=== PATIENT | female | born 1955 | race Caucasian/White ===

== ENCOUNTER 2017-05-05 06:33 | Inpatient (IN) | payer OTHER, MEDICAID, MEDICARE ==
[2017-05-05] VITALS (47 sets, daily range): BP systolic 117–145; BP diastolic 66–98; PULSE 75–130; RESP 18–35; TEMP 91.1–98.4; O2SAT 93–100
[~2017-05-05 06:33] MED LIST: ASPI325T PO; CARV3.12 PO; DEPA250T2 PO; FURO1TAB93 PO; GABA300C3 PO; LAMO25TA PO; LANTUS2P SC; LORA1TAB PO; SERT-129 PO; SIMV40TA PO; SPIR25TA PO; SPIRCAP INH; TEMA15CA PO; TIZA4 PO
[2017-05-05] MEDS ORDERED: LORazepam 2 MG/ML VIAL ONE (06:40)
[2017-05-05] MEDS ORDERED: PROPOFOL 1000 MG/100 ML INJ 100 ML ONE (06:41)
[2017-05-05] MEDS ORDERED: SODIUM CHLOR 0.9% 1000 ML INJ 1,000 ML IV ONE (07:00)
[2017-05-05] MEDS ORDERED: LORazepam 2 MG/ML VIAL IV PUSH ONE ×2 (07:00)
--- NOTE | 2017-05-05 07:11 | PD ---
Physical Exam Date Seen by Provider: May 05, 2017 Time Seen by Provider: 07:07 Narrative The patient is a 77-year-old female who presents to the emergency department as a code. The patient was initially loaded with previous physician , Dr. Monteiro. The patient apparently woke up short of breath, then collapsed on the bed, when EMS arrived the patient was in pulseless electrical activity. The patient had CPR performed and was administered 2 rounds of epinephrine and one round of bicarbonate, spontaneous return of circulation was obtained upon arrival. The patient was intubated in the field. The patient was signed out at 7 AM with chest x-ray, CT, and laboratory evaluation pending. Data Data Last Documented VS Vital Signs Date Time Temp Pulse Resp B/P (MAP) Pulse Ox O2 Delivery O2 Flow Rate FiO2 05/05/17 08:24 97.3 88 32 135/66 (89) 99 Ventilator 100 Orders Orders Lorazepam Inj (Ativan Inj) (05/05/17 06:40) Propofol 1000 Mg/100 Ml Inj (Diprivan 10 (05/05/17 06:41) Electrocardiogram (05/05/17 06:48) Complete Blood Count With Diff (05/05/17 06:48) Comprehensive Metabolic Panel (05/05/17 06:48) Creatine Kinase (Cpk) (05/05/17 06:48) Ckmb (Isoenzyme) Profile (05/05/17 06:48) Troponin I (05/05/17 06:48) B-Type Natriuretic Peptide (05/05/17 06:48) Prothrombin Time / Inr (Pt) (05/05/17 06:48) Act Partial Throm Time (Ptt) (05/05/17 06:48) Blood Culture (05/05/17 06:48) Lipase (05/05/17 06:48) Urinalysis - C+S If Indicated (05/05/17 06:48) Magnesium (Mg) (05/05/17 06:48) Valproic Acid (Depakene) (05/05/17 06:48) Thyroid Stimulating Hormone (05/05/17 06:48) Chest, Single Ap (05/05/17 06:48) Iv Access Insert/Monitor (05/05/17 06:48) Ecg Monitoring (05/05/17 06:48) Oximetry (05/05/17 06:48) Urinary Catheter Insert/Apply (05/05/17 06:48) Nilda-Gastric Tube Insert/Mon (05/05/17 06:48) Drug Screen, Random Urine (05/05/17 06:48) Alcohol (Ethanol) (05/05/17 06:48) Arterial Blood Gas (Abg) (05/05/17 ) Sodium Chlor 0.9% 1000 Ml Inj (Ns 1000 M (05/05/17 07:00) Lactic Acid Sepsis Protocol (05/05/17 06:48) Lorazepam Inj (Ativan Inj) (05/05/17 07:00) Lorazepam Inj (Ativan Inj) (05/05/17 07:00) Ct Brain W/O Iv Contrast(Rout) (05/05/17 ) Propofol 1000 Mg/100 Ml Inj (Diprivan 10 (05/05/17 07:15) ^ Infusion (05/05/17 07:03) RASS (05/05/17 07:03) Neurological Rass Scale YOANA.Q2H (05/05/17 07:03) Ct Pulmonary Angiogram (05/05/17 ) Admit To Inpatient (05/05/17 ) Code Status (05/05/17 07:34) Vital Signs (Adult) YOANA.Q1H (05/05/17 07:34) Activity Bed Rest (05/05/17 07:34) Elevate Head Of Bed (05/05/17 07:34) Neuro Checks . ORDERED (05/05/17 07:34) Intake + Output Q1H (05/05/17 07:34) ^ Orogastric Tube (05/05/17 07:34) Urinary Catheter Management YOANA.Q8H (05/05/17 07:34) Diet Npo (05/05/17 Breakfast) Sodium Chloride 0.9% Flush (Ns Flush) (05/05/17 07:45) Sodium Chloride 0.9% Flush (Ns Flush) (05/05/17 09:00) Famotidine Inj (Pepcid Inj) (05/05/17 09:00) Lorazepam Inj (Ativan Inj) (05/05/17 07:45) Ondansetron Inj (Zofran Inj) (05/05/17 07:45) Albuterol-Ipratropium Neb (Duoneb Neb) (05/05/17 10:00) Albuterol Neb (Albuterol Neb) (05/05/17 07:45) Complete Blood Count With Diff (05/06/17 04:00) Comprehensive Metabolic Panel (05/06/17 04:00) Troponin I (05/05/17 13:00) Troponin I (05/05/17 19:00) Magnesium (Mg) (05/06/17 04:00) Phosphorus (Po4) (05/06/17 04:00) Ammonia (05/05/17 07:34) Electrocardiogram (05/05/17 07:34) Electrocardiogram (05/05/17 13:34) Echo 2d Comp With Doppler (05/05/17 07:34) Portable Eeg (05/05/17 ) Supervisor Audit Clerks / Telemetry YOANA.Q8H (05/05/17 07:34) Scd Bilateral/Knee High YOANA.BID (05/05/17 07:34) ^ Initiate Protocol (05/05/17 07:34) Instruction (05/05/17 07:34) [facility] Information (05/05/17 07:45) Chlorhexidine 2% Cloth (Chlorhexidine 2% (05/06/17 04:00) Chlorhexidine 2% Cloth (Chlorhexidine 2% (05/05/17 07:45) Mrsa Pcr Surveillance (05/05/17 07:34) Docusate Sodium-Senna (Lucrecia-Colace) (05/05/17 09:00) Magnesium Hydroxide Liq (Milk Of Magnesi (05/05/17 07:45) Sennosides (Senokot) (05/05/17 07:45) Bisacodyl Supp (Dulcolax Supp) (05/05/17 07:45) Lactulose Liq (Lactulose Liq) (05/05/17 07:45) Inpatient Certification (05/05/17 ) Tylenol (Acetaminophen) (05/05/17 07:44) Salicylates (Aspirin) (05/05/17 07:44) CKMB (05/05/17 07:00) CKMB% (05/05/17 07:00) Sputum Culture And Gram Stain (05/05/17 07:55) Midazolam Inj (Versed Inj) (05/05/17 08:00) Propofol 1000 Mg/100 Ml Inj (Diprivan 10 (05/05/17 08:00) Neurological Rass Scale Q30MX2,Q2HX4,Q4H (05/05/17 07:56) Albuterol-Ipratropium Neb (Duoneb Neb) (05/05/17 08:00) ^ Orogastric Tube (05/05/17 08:08) Free T3 (05/05/17 08:09) Free Thyroxine (T4) (05/05/17 08:09) Neurological Rass Scale Q30MX2,Q2HX4,Q4H (05/05/17 08:10) Fentanyl Drip (Fentanyl Drip) (05/05/17 08:15) Fentanyl Inj (Fentanyl Inj) (05/05/17 08:15) Us Abdomen Liver (05/05/17 ) Hepatitis Profile (05/05/17 08:12) Iohexol 350 Inj (Omnipaque 350 Inj) (05/05/17 08:17) Influenzae A/B Antigen (05/05/17 08:13) Bedside Glucose . DIRECTED (05/05/17 08:39) Blood Glucose Goal (Criteria) (05/05/17 08:39) Hypoglycemia 70 Mg/Dl Or < (05/05/17 08:39) Notify Dr: Other (05/05/17 08:39) Dextrose 50% In [place] (Vial) Inj (D50w (Vi (05/05/17 08:45) Glucagon Inj (Glucagon Inj) (05/05/17 08:45) Insulin Aspart Supplemtl Scale (Novolog (05/05/17 08:45) Aspirin Chew (Aspirin Chew) (05/05/17 08:45) Aspirin Chew (Aspirin Chew) (05/05/17 09:00) Cefepime Inj (Maxipime Inj) (05/05/17 08:45) Azithromycin Inj (Zithromax Inj) (05/05/17 08:45) Labs Laboratory Tests Test 05/05/17 07:00 05/05/17 07:15 White Blood Count 14.4 TH/MM3 Red Blood Count 4.86 MIL/MM3 Hemoglobin 15.8 GM/DL Hematocrit 48.3 % Mean Corpuscular Volume 99.5 FL Mean Corpuscular Hemoglobin 32.5 PG Mean Corpuscular Hemoglobin Concent 32.6 % Red Cell Distribution Width 14.6 % Platelet Count 183 TH/MM3 Mean Platelet Volume 10.2 FL Neutrophils (%) (Auto) 41.9 % Lymphocytes (%) (Auto) 52.3 % Monocytes (%) (Auto) 4.5 % Eosinophils (%) (Auto) 0.7 % Basophils (%) (Auto) 0.6 % Neutrophils # (Auto) 6.0 TH/MM3 Lymphocytes # (Auto) 7.5 TH/MM3 Monocytes # (Auto) 0.7 TH/MM3 Eosinophils # (Auto) 0.1 TH/MM3 Basophils # (Auto) 0.1 TH/MM3 CBC Comment AUTO DIFF Differential Total Cells Counted 100 Neutrophils % (Manual) 34 % Band Neutrophils % 3 % Lymphocytes % 49 % Monocytes % 11 % Eosinophils % 1 % Neutrophils # (Manual) 5.6 TH/MM3 Metamyelocytes 1 % Myelocytes 1 % Differential Comment FINAL DIFF MANUAL Red Cell Morphology Comment NORMAL Prothrombin Time 10.8 SEC Prothromb Time International Ratio 1.0 RATIO Activated Partial Thromboplast Time 27.3 SEC Urine Color LIGHT-YELLOW Urine Turbidity CLEAR Urine pH 6.5 Urine Specific [place] 1.007 Urine Protein TRACE mg/dL Urine Glucose (UA) NEG mg/dL Urine Ketones NEG mg/dL Urine Occult Blood SMALL Urine Nitrite NEG Urine Bilirubin NEG Urine Urobilinogen LESS THAN 2.0 MG/DL Urine Leukocyte Esterase NEG Urine RBC 4 /hpf Urine WBC 1 /hpf Microscopic Urinalysis Comment CULT NOT INDICATED Blood Urea Nitrogen 21 MG/DL Creatinine 1.21 MG/DL Random Glucose 194 MG/DL Total Protein 7.3 GM/DL Albumin 3.4 GM/DL Calcium Level 8.6 MG/DL Magnesium Level 2.7 MG/DL Alkaline Phosphatase 151 U/L Aspartate Amino Transf (AST/SGOT) 245 U/L Alanine Aminotransferase (ALT/SGPT) 177 U/L Total Bilirubin 0.3 MG/DL Sodium Level 143 MEQ/L Potassium Level 4.1 MEQ/L Chloride Level 104 MEQ/L Carbon Dioxide Level 22.2 MEQ/L Anion Gap 17 MEQ/L Estimat Glomerular Filtration Rate 45 ML/MIN Lactic Acid Level 11.4 mmol/L Total Creatine Kinase 138 U/L Creatine Kinase MB 1.6 NG/ML Troponin I 0.03 NG/ML B-Type Natriuretic Peptide 342 PG/ML Lipase 168 U/L Thyroid Stimulating Hormone 3rd Gen 4.890 uIU/ML Urine Opiates Screen NEG Urine Barbiturates Screen NEG Valproic Acid (Depakene) Level LESS THAN 3 MCG/ML Urine Amphetamines Screen NEG Urine Benzodiazepines Screen NEG Urine Cocaine Screen NEG Urine Cannabinoids Screen POS Ethyl Alcohol Level LESS THAN 3 MG/DL Blood Gas Puncture Site RT RADIAL Blood Gas Patient Temperature 98.6 Blood Gas HCO3 21 mmol/L Blood Gas Base Excess -6.8 mmol/L Blood Gas Oxygen Saturation 91 % Arterial Blood pH 7.14 Arterial Blood Partial Pressure CO2 64 mmHg Arterial Blood Partial Pressure O2 103 mmHg Arterial Blood Oxygen Content 19.7 Vol % Arterial Blood Carboxyhemoglobin 4.5 % Arterial Blood Methemoglobin 0.7 % Blood Gas Hemoglobin 15.4 G/DL Oxygen Delivery Device VENTILATOR Blood Gas Ventilator Setting Blood Gas Inspired Oxygen 100 % [facility] Medical Record Reviewed: Yes Supervised Visit with GARRET: No Interpretation(s) EKG reveals sinus tachycardia with a heart rate of 134. Left bundle branch block. Wavy baseline noted. Laboratory Tests Test 05/05/17 07:00 05/05/17 07:15 White Blood Count 14.4 TH/MM3 Red Blood Count 4.86 MIL/MM3 Hemoglobin 15.8 GM/DL Hematocrit 48.3 % Mean Corpuscular Volume 99.5 FL Mean Corpuscular Hemoglobin 32.5 PG Mean Corpuscular Hemoglobin Concent 32.6 % Red Cell Distribution Width 14.6 % Platelet Count 183 TH/MM3 Mean Platelet Volume 10.2 FL Neutrophils (%) (Auto) 41.9 % Lymphocytes (%) (Auto) 52.3 % Monocytes (%) (Auto) 4.5 % Eosinophils (%) (Auto) 0.7 % Basophils (%) (Auto) 0.6 % Neutrophils # (Auto) 6.0 TH/MM3 Lymphocytes # (Auto) 7.5 TH/MM3 Monocytes # (Auto) 0.7 TH/MM3 Eosinophils # (Auto) 0.1 TH/MM3 Basophils # (Auto) 0.1 TH/MM3 CBC Comment AUTO DIFF Prothrombin Time 10.8 SEC Prothromb Time International Ratio 1.0 RATIO Activated Partial Thromboplast Time 27.3 SEC Urine Color LIGHT-YELLOW Urine Turbidity CLEAR Urine pH 6.5 Urine Specific [place] 1.007 Urine Protein TRACE mg/dL Urine Glucose (UA) NEG mg/dL Urine Ketones NEG mg/dL Urine Occult Blood SMALL Urine Nitrite NEG Urine Bilirubin NEG Urine Urobilinogen LESS THAN 2.0 MG/DL Urine Leukocyte Esterase NEG Urine RBC 4 /hpf Urine WBC 1 /hpf Microscopic Urinalysis Comment CULT NOT INDICATED Blood Urea Nitrogen 21 MG/DL Creatinine 1.21 MG/DL Random Glucose 194 MG/DL Total Protein 7.3 GM/DL Albumin 3.4 GM/DL Calcium Level 8.6 MG/DL Magnesium Level 2.7 MG/DL Alkaline Phosphatase 151 U/L Aspartate Amino Transf (AST/SGOT) 245 U/L Alanine Aminotransferase (ALT/SGPT) 177 U/L Total Bilirubin 0.3 MG/DL Sodium Level 143 MEQ/L Potassium Level 4.1 MEQ/L Chloride Level 104 MEQ/L Carbon Dioxide Level 22.2 MEQ/L Anion Gap 17 MEQ/L Estimat Glomerular Filtration Rate 45 ML/MIN Lactic Acid Level 11.4 mmol/L Total Creatine Kinase 138 U/L Creatine Kinase MB 1.6 NG/ML Troponin I 0.03 NG/ML Lipase 168 U/L Thyroid Stimulating Hormone 3rd Gen 4.890 uIU/ML Urine Opiates Screen NEG Urine Barbiturates Screen NEG Valproic Acid (Depakene) Level LESS THAN 3 MCG/ML Urine Amphetamines Screen NEG Urine Benzodiazepines Screen NEG Urine Cocaine Screen NEG Urine Cannabinoids Screen POS Ethyl Alcohol Level LESS THAN 3 MG/DL Blood Gas Puncture Site RT RADIAL Blood Gas Patient Temperature 98.6 Blood Gas HCO3 21 mmol/L Blood Gas Base Excess -6.8 mmol/L Blood Gas Oxygen Saturation 91 % Arterial Blood pH 7.14 Arterial Blood Partial Pressure CO2 64 mmHg Arterial Blood Partial Pressure O2 103 mmHg Arterial Blood Oxygen Content 19.7 Vol % Arterial Blood Carboxyhemoglobin 4.5 % Arterial Blood Methemoglobin 0.7 % Blood Gas Hemoglobin 15.4 G/DL Oxygen Delivery Device VENTILATOR Blood Gas Ventilator Setting Blood Gas Inspired Oxygen 100 % Last Impressions Chest X-Ray 05/05/17 0648 Signed Impressions: Service Date/Time: Friday, May 05, 2017 07:12 - CONCLUSION: 1. Endotracheal and nasogastric tubes are in good position. 2. Cardiomegaly with vascular congestion but no evidence of pulmonary edema consolidating airspace disease. 3. AICD. Mikael Hinton MD Head CT 05/05/17 0000 Signed Impressions: Service Date/Time: Friday, May 05, 2017 07:54 - CONCLUSION: No acute disease. Study is motion degraded. Yony Ahmadi Jr., MD CT Angiography 05/05/17 0000 Signed Impressions: Service Date/Time: Friday, May 05, 2017 07:58 - CONCLUSION: 1. Patchy airspace disease predominantly in the right upper lobe posteriorly and the left base. Findings could represent pneumonic infiltrates. 2. There is also dependent atelectatic changes in both hemithoraces, slightly more prominent on the right. 3. No pulmonary embolus or effusion. Saran Perdomo MD Differential Diagnosis Differential diagnosis includes arrhythmia, pulseless electrical activity, acute coronary syndrome, pulmonary embolism, seizure, medication side effect, cardiopulmonary arrest. Narrative Course The patient was initially evaluated by the previous physician, Dr. Monteiro. Please refer to the initial history, physical, diagnostic evaluation, and treatment modality plan. The patient was signed out at [address] of the brain pending, x-ray pending, laboratory evaluation pending. The patient apparently woke up short of breath, then collapsed on the bed, was found to be in pulseless electrical activity. The patient had CPR initiated, an IO was placed in right lower extremity, the patient received 2 rounds of epinephrine and 1 amp of bicarbonate. EMS was able to gain spontaneous return of circulation, the patient was intubated in the field. The patient does have an AICD in place in left upper chest wall. She appeared to have seizure-like activity in the emergency department, unsure if this was related to seizure or hypoxic event. The patient may be a candidate for code cool, therefore, the on- call internet marketing intern for [employer] was paged. The patient did have 3 peripheral lines placed by nursing, 2 in the antecubital fossa, one in the left hand. The patient was on a propofol drip when she was signed out at 7 AM. I discussed the patient with the on-call internet marketing intern, Dr. Landin, 7:30 AM. As the patient did initially have pulseless electrical activity, we will need to rule out other causes of PEA including hypokalemia, hyperkalemia, and pulmonary embolism, prior to instituting a code cool. I will call back with results once they're obtained. Patient's troponin is unremarkable. Lactic acid was elevated, unsure if this is related to hypoxia versus underlying seizure. CT the brain is negative except for motion artifact. CT pulmonary angiogram reveals pneumonic infiltrates in the right upper lobe and a left lower lobe, may be aspiration related. The patient was administered cefepime, her allergy to amoxicillin as nausea, and Zithromax as she will be going to the intensive care unit. Physician Communication Physician Communication The on-call internet marketing intern for the intensive surgical care unit was paged at 7 AM for admission. Diagnosis Primary Impression: Cardiopulmonary arrest Additional Impression: Acute respiratory failure with hypoxia and hypercapnia Admitting Information Admitting Physician Requests: Admit Condition: Critical Johnathan Ly MD May 05, 2017 07:11
[2017-05-05] MEDS ORDERED: FURO40TA PO (07:12)
[2017-05-05] MEDS ORDERED: TIZA4CAP3 PO (07:12)
[2017-05-05] MEDS ORDERED: GABA100C4 PO (07:12)
[2017-05-05] MEDS ORDERED: SPIR25TA PO (07:12)
[2017-05-05] MEDS ORDERED: ATOR20TA15 PO (07:12)
[2017-05-05] MEDS ORDERED: FURO20TA PO (07:12)
[2017-05-05] MEDS ORDERED: CARV25TA PO (07:12)
[2017-05-05] MEDS ORDERED: SERT-132 PO (07:12)
[2017-05-05] MEDS ORDERED: TEMA15CA PO (07:12)
[2017-05-05] MEDS ORDERED: RIZA10TA4 SL (07:12)
[2017-05-05] MEDS ORDERED: PROPOFOL 1000 MG/100 ML INJ 100 ML IV PRN (07:15)
[2017-05-05 07:17] LABS: BASOPHIL # 0.1 TH/MM3 (0-0.2); BASOPHIL % 0.6 % (0.0-2.0); EOSINOPHIL # 0.1 TH/MM3 (0-0.4); EOSINOPHIL % 0.7 % (0.0-4.0); HEMATOCRIT 48.3 % (35.0-46.0); LYMPH % 52.3 % (9.0-44.0); LYMPHOCYTE # 7.5 TH/MM3 (1.0-4.8); MEAN CELL VOLUME 99.5 FL (80.0-100.0); MEAN CORPUSCULAR HEMOGLOBIN 32.5 PG (27.0-34.0); MEAN CORPUSCULAR HGB CONC 32.6 % (32.0-36.0); MONO % 4.5 % (0.0-8.0); NEUT % 41.9 % (16.0-70.0); PLATELET COUNT 183 TH/MM3 (150-450); RED BLOOD COUNT 4.86 MIL/MM3 (4.00-5.30); RED CELL DISTRIBUTION WIDTH 14.6 % (11.6-17.2); WHITE BLOOD COUNT 14.4 TH/MM3 (4.0-11.0)
[2017-05-05 07:18] LABS: BLOOD, URINE SMALL (NEG); COMMENT (UR) CULT NOT INDICATED; CULTURE IF INDICATED CULT NOT INDICATED; GLUCOSE,URINE NEG (NEG); KETONE, URINE NEG (NEG); NITRITE,URINE NEG (NEG); PH, URINE 6.5 (5.0-8.5); URINE COLOR LIGHT-YELLOW (YELLW/STRAW)
[2017-05-05 07:24] LABS: APTT (PATIENT) 27.3 SEC (24.3-30.1); HEMO FLAGS AUTO DIFF; PROTHROMBIN TIME - PATIENT 10.8 SEC (9.8-11.6)
[2017-05-05 07:30] LABS: ALT (GPT) 177 U/L (10-53); ANION GAP 17 MEQ/L (5-15); AST (GOT) 245 U/L (15-37); BICARBONATE 22.2 MEQ/L (21.0-32.0); BLOOD UREA NITROGEN 21 MG/DL (7-18); CHLORIDE 104 MEQ/L (98-107); GLOMERULAR FILTRATION RATE 45 ML/MIN (>89); MAGNESIUM 2.7 MG/DL (1.5-2.5); POTASSIUM 4.1 MEQ/L (3.5-5.1); SODIUM (NA) 143 MEQ/L (136-145)
[2017-05-05 07:31] LABS: BLOOD GAS BASE EXCESS -6.8 mmol/L (-2-2); BLOOD GAS CARBOXYHEMOGLOBIN 4.5 % (0-4); BLOOD GAS HCO3 21 mmol/L (22-26); BLOOD GAS METHEMOGLOBIN 0.7 % (0-2); BLOOD GAS O2 HGB SATURATION 91 % (90-100); BLOOD GAS OXYGEN CONTENT 19.7 Vol % (12.0-20.0); BLOOD GAS PCO2 64 mmHg (38-42); BLOOD GAS PO2 103 mmHg (61-120); BLOOD GAS TOTAL HGB 15.4 G/DL (12.0-16.0); TEMP CORR TO 98.6
[2017-05-05 07:32] LABS: CRITICAL VALUE YES; OXYGEN DEVICE VENTILATOR
[2017-05-05 07:33] LABS: DRAW SITE RT RADIAL; FIO2 100 %; NUMBER OF ARTERIAL PUNCTURES 1; STAT YES; ULNAR PULSE PRESENT
--- NOTE | 2017-05-05 07:33 | RADRPT ---
EXAM DATE/TIME: 05/05/2017 07:12 [place] COMPARISON: CT PULMONARY ANGIOGRAM, February 08, 2015, 15:22. INDICATIONS : Post Intubation MEDICAL HISTORY : Unobtainable SURGICAL HISTORY : Unobtainable ENCOUNTER: Initial ACUITY: 1 day PAIN SCORE: Non-responsive. LOCATION: Bilateral chest FINDINGS: Endotracheal and nasogastric tubes have been inserted and are in good position. Tip of the endotrache al tube is approximately 2 cm above the nick. The heart is moderately enlarged. Diffuse vascular fullness is noted throughout both lungs. There is no evidence of significant pulmona ry edema or consolidating airspace disease. CONCLUSION: 1. Endotracheal and nasogastric tubes are in good position. 2. Cardiomegaly with vascular congestion but no evidence of pulmonary edema consolidating airspace di sease. 3. AICD. Mikael Hinton MD on May 05, 2017 at 7:29 Board Certified Radiologist. This report was verified electronically.
[2017-05-05 07:39] LABS: ALKALINE PHOSPHATASE 151 U/L (45-117); CREATINE KINASE 138 U/L (26-192); TOTAL BILIRUBIN ADULT 0.3 MG/DL (0.2-1.0)
--- NOTE | 2017-05-05 07:43 | PD ---
HPI Chief Complaint: Cardiac Complaint Time Seen by Provider: 06:47 Travel History International Travel<30 days: No Contact w/Intl Traveler<30days: No Traveled to known affect area: No History of Present Illness HPI The patient is a 62 year old female who presents to the [facility] emergency department with a history of having a witnessed collapse prior to arrival. According to ambulance services the patient's family had placed a call regarding her shortness of breath. The patient was in bed and then suddenly collapsed. Ambulance services and fire rescue arrived and the patient was noted to be in PEA. The patient was intubated with a 7-1/2 endotracheal tube. The patient had intraosseous access placed in the right blackburn prior to arrival. The patient's blood sugar was noted to be 141. The patient had ACLS protocol followed and was given 2 doses of epinephrine and 1 amp of bicarbonate. After the amp of bicarbonate the patient had a return of spontaneous circulation. The patient was then noted to be in a sinus tach in the 120s to 130s with hypertension. The patient on arrival to this facility is noted to have twitching of her extremities with intermittent rapid eye blinking suspicious for seizure activity. The patient's history is limited on initial arrival. The patient was last seen at this facility in 2014. According to the record the patient was previously on Depakote. It is unclear whether the patient has a prior history of seizure disorder. From reviewing the electronic medical record, the patient is noted to have a nonischemic cardiomyopathy with a history of AICD and pacemaker placement. No other history or review of systems is able to be obtained from the patient and she arrives intubated. [facility] Past Medical History Narrative Medical the patient's past medical history according to the electronic medical record consists of a nonischemic cardiomyopathy, history of colon cancer, history of congestive heart failure, history of hyperlipidemia, COPD, diabetes mellitus, hypertension, history of headaches Medical History: Unable to Obtain Hx Anticoagulant Therapy: Yes Arthritis: Yes Asthma: Yes Autoimmune Disease: No Blood Disorders: No Anxiety: Yes Depression: Yes Heart Rhythm Problems: Yes Cancer: Yes Cardiac Catheterization: Yes (2007) Cardiomyopathy: Yes ("NON-ISCHEMIC" CARDIOMYOPATHY) Cardiovascular Problems: Yes High Cholesterol: Yes Chemotherapy: No Chest Pain: No Congestive Heart Failure: Yes COPD: Yes Cerebrovascular Accident: No Coronary Artery Disease: Yes Diabetes: Yes Patient Takes Glucophage: No (UTO) Diminished Hearing: No Endocrine: Yes (DIABETIC FOR 10 YEARS) Gastrointestinal Disorders: Yes GERD: No Glaucoma: No Genitourinary: Yes (HEMORRHOIDS) Headaches: Yes Hepatitis: No Hiatal Hernia: No Hypertension: Yes Immune Disorder: No Kidney Stones: Yes Musculoskeletal: Yes Neurologic: Yes Psychiatric: Yes Reproductive: No Respiratory: Yes (COPD) Immunizations Current: No Migraines: No Myocardial Infarction: No Radiation Therapy: No Renal Failure: Yes Seizures: No Sickle Cell Disease: No Sleep Apnea: No Thyroid Disease: No Ulcer: No Tetanus Vaccination: Unknown PNEUMOCCOCAL Vaccine (Year): 1 Menopausal: Yes Ovarian Cysts: Yes ("L.OVARY REMOVED APPOX 1982") Past Surgical History Narrative Surgical The patient's past surgical history is significant for an AICD and pacemaker placement, history of partial colon resection, history of hysterectomy, hernia repair, tonsillectomy. Surgical History: Unable to Obtain Abdominal Surgery: Yes (1996--COLON RESECTION,9 1/2 INCHES REMOVED) AICD: Yes (2004--INTRINSIC DEFIBRILLATOR MODEL # 7288 SERIAL#[id number]) Appendectomy: No Arteriovenous Shunt: No Body Medical Devices: MEDTRONIC DEFIBRILLATOR Cardiac Surgery: Yes Cholecystectomy: No Ear Surgery: No Endocrine Surgery: No Eye Surgery: No Genitourinary Surgery: No Gynecologic Surgery: No Hysterectomy: Yes (2000) Joint Replacement: No Neurologic Surgery: No Oral Surgery: No Pacemaker: Yes (PACEMAKER/DEFIBRILLATOR) Thoracic Surgery: No Tonsillectomy: Yes ("MID 60'S") Other Surgery: Yes (HERNIA REPAIR- 1997) Social History Alcohol Use: Yes (YEARLY, 1 LIQUOR DRINK) Tobacco Use: Yes (2 PPD) Substance Use: Yes (MARIJUANA) Allergies-Medications (Allergen,Severity, Reaction): Coded Allergies: amoxicillin (Unverified Allergy, Severe, NAUSEA, 05/05/17) clavulanic acid (Unverified Allergy, Severe, NAUSEA, 05/05/17) codeine (Unverified Allergy, Severe, headache, 05/05/17) metformin (Unverified Allergy, Severe, NAUSEA, 05/05/17) morphine (Unverified Allergy, Severe, ITCHING, 05/05/17) Reported Meds & Prescriptions Reported Meds & Active Scripts Active Reported Atorvastatin (Atorvastatin Calcium) 20 Mg Tab 20 Mg PO DAILY Gabapentin 100 Mg Cap 100 Mg PO BID Sertraline (Sertraline HCl) 50 Mg Tab 150 Mg PO DAILY Carvedilol 25 Mg Tab 25 Mg PO BID Furosemide 20 Mg Tab 20 Mg PO DAILY Spironolactone 25 Mg Tab 25 Mg PO DAILY Temazepam 15 Mg Cap 15 Mg PO HS PRN Tizanidine (Tizanidine HCl) 4 Mg Cap 4 Mg PO TID Furosemide 40 Mg Tab 40 Mg PO DAILY Rizatriptan Odt (Rizatriptan Benzoate) 10 Mg Tab SL Review of Systems ROS Limitations: Intubated Eyes: No: Visual changes Cardiovascular: No: Dyspnea on exertion Respiratory: Positive: Shortness of Breath Physical Exam Narrative General: The patient is a well-developed well-nourished female, intubated on arrival, they did twitching intermittently with rapid eye blinking. Head and Neck exam: Head is normocephalic atraumatic. Eyes: Extraocular motion testing is unable to be accomplished in this patient who arrives unresponsive. Pupils are 4 mm, reactive to light. The patient has exophthalmos noted bilaterally. Nose: Midline septum with pink mucous membranes Mouth: Dentition unremarkable. Moist mucus membranes. Posterior oropharynx is not erythematous. No tonsillar hypertrophy. Uvula midline. Airway patent. Neck: No palpable lymphadenopathy. No nuchal rigidity. No thyromegaly. Cardiovascular: Sinus tachycardia with a rate in the 120s to 130s without murmurs, gallops, or rubs. No pulse deficit to the extremities on simultaneous auscultation and palpation of the radial artery. Lungs: Tachypneic on arrival with O2 saturations of 99% while being bagged. The patient was placed on a ventilator and continued to saturate 99%, decreased breath sounds in bilateral bases. Abdomen: Soft, without tenderness to palpation in all 4 quadrants of the abdomen. No guarding, rebound, or rigidity. Normal bowel sounds are audible. Extremities: No clubbing, cyanosis, or edema. 2+ pulses in all 4 extremities. Intraosseous access is noted to be placed in the right tibia. Neurologic Exam: The patient had no purposeful motor activity noted. Intermittent twitching of her extremities and rapid eye blinking suspicious for seizure activity versus hypoxic brain injury. GCS is 4 on arrival. Skin Exam: No rash noted. Intact skin that is warm and diaphoretic. Data Data Last Documented VS Vital Signs Date Time Temp Pulse Resp B/P (MAP) Pulse Ox O2 Delivery O2 Flow Rate FiO2 05/05/17 07:14 98.4 110 35 139/98 (112) 98 Ventilator 100 Orders Orders Lorazepam Inj (Ativan Inj) (05/05/17 06:40) Propofol 1000 Mg/100 Ml Inj (Diprivan 10 (05/05/17 06:41) Electrocardiogram (05/05/17 06:48) Complete Blood Count With Diff (05/05/17 06:48) Comprehensive Metabolic Panel (05/05/17 06:48) Creatine Kinase (Cpk) (05/05/17 06:48) Ckmb (Isoenzyme) Profile (05/05/17 06:48) Troponin I (05/05/17 06:48) B-Type Natriuretic Peptide (05/05/17 06:48) Prothrombin Time / Inr (Pt) (05/05/17 06:48) Act Partial Throm Time (Ptt) (05/05/17 06:48) Blood Culture (05/05/17 06:48) Lipase (05/05/17 06:48) Urinalysis - C+S If Indicated (05/05/17 06:48) Magnesium (Mg) (05/05/17 06:48) Valproic Acid (Depakene) (05/05/17 06:48) Thyroid Stimulating Hormone (05/05/17 06:48) Chest, Single Ap (05/05/17 06:48) Iv Access Insert/Monitor (05/05/17 06:48) Ecg Monitoring (05/05/17 06:48) Oximetry (05/05/17 06:48) Urinary Catheter Insert/Apply (05/05/17 06:48) Nilda-Gastric Tube Insert/Mon (05/05/17 06:48) Drug Screen, Random Urine (05/05/17 06:48) Alcohol (Ethanol) (05/05/17 06:48) Arterial Blood Gas (Abg) (05/05/17 ) Sodium Chlor 0.9% 1000 Ml Inj (Ns 1000 M (05/05/17 07:00) Lactic Acid Sepsis Protocol (05/05/17 06:48) Lorazepam Inj (Ativan Inj) (05/05/17 07:00) Lorazepam Inj (Ativan Inj) (05/05/17 07:00) Ct Brain W/O Iv Contrast(Rout) (05/05/17 ) Propofol 1000 Mg/100 Ml Inj (Diprivan 10 (05/05/17 07:15) ^ Infusion (05/05/17 07:03) RASS (05/05/17 07:03) Neurological Rass Scale YOANA.Q2H (05/05/17 07:03) Ct Pulmonary Angiogram (05/05/17 ) Labs Laboratory Tests Test 05/05/17 07:00 05/05/17 07:15 White Blood Count 14.4 TH/MM3 Red Blood Count 4.86 MIL/MM3 Hemoglobin 15.8 GM/DL Hematocrit 48.3 % Mean Corpuscular Volume 99.5 FL Mean Corpuscular Hemoglobin 32.5 PG Mean Corpuscular Hemoglobin Concent 32.6 % Red Cell Distribution Width 14.6 % Platelet Count 183 TH/MM3 Mean Platelet Volume 10.2 FL Neutrophils (%) (Auto) 41.9 % Lymphocytes (%) (Auto) 52.3 % Monocytes (%) (Auto) 4.5 % Eosinophils (%) (Auto) 0.7 % Basophils (%) (Auto) 0.6 % Neutrophils # (Auto) 6.0 TH/MM3 Lymphocytes # (Auto) 7.5 TH/MM3 Monocytes # (Auto) 0.7 TH/MM3 Eosinophils # (Auto) 0.1 TH/MM3 Basophils # (Auto) 0.1 TH/MM3 CBC Comment AUTO DIFF Prothrombin Time 10.8 SEC Prothromb Time International Ratio 1.0 RATIO Activated Partial Thromboplast Time 27.3 SEC Urine Color LIGHT-YELLOW Urine Turbidity CLEAR Urine pH 6.5 Urine Specific [place] 1.007 Urine Protein TRACE mg/dL Urine Glucose (UA) NEG mg/dL Urine Ketones NEG mg/dL Urine Occult Blood SMALL Urine Nitrite NEG Urine Bilirubin NEG Urine Urobilinogen LESS THAN 2.0 MG/DL Urine Leukocyte Esterase NEG Urine RBC 4 /hpf Urine WBC 1 /hpf Microscopic Urinalysis Comment CULT NOT INDICATED Urine Opiates Screen NEG Urine Barbiturates Screen NEG Urine Amphetamines Screen NEG Urine Benzodiazepines Screen NEG Urine Cocaine Screen NEG Urine Cannabinoids Screen POS MDM Medical Decision Making Medical Screen Exam Complete: Yes Emergency Medical Condition: Yes Medical Record Reviewed: Yes Differential Diagnosis Acute coronary syndrome, versus intracranial hemorrhage, versus respiratory failure, versus pulmonary embolism Narrative Course During the course of the patients emergency department visit, the patient had IV access obtained. The patient's electronic medical record was reviewed. The patient was placed on a phototypesetting equipment monitor with oximetry and frequent blood pressure monitoring. The patient had blood work sent for analysis. An ECG was done on arrival. The patient's ECG is noted to have a tremulous baseline, however the patient is noted to be intermittently twitching on examination. The patient is noted to have a left bundle branch block, sinus tachycardia rate of 134, QRS duration 152 ms, QTC 421 ms. Review the electronic medical record reveals that the patient's last ECG was done in 2014. The patient had an intraventricular ventricular conduction delay at that time with a partial left bundle branch block. A [place] catheter was placed to gravity. An OG tube was placed to low intermittent suction. An ABG was ordered. A CT scan of the brain was ordered. Chest x-ray was ordered. The patient was initially provided Ativan 1 mg IV 1 which was repeated in rapid succession and allowed for complete resolution of the patient's twitching. The patient was provided on propofol for sedation on the ventilator. The patients laboratory studies and radiologic studies are pending at the conclusion of my shift. The patient's case will be checked out to the oncoming emergency physician to disposition the patient based on the conclusion of her workup. Diagnosis Primary Impression: Cardiopulmonary arrest with successful resuscitation Admitting Information Admitting Physician Requests: Admit Condition: Critical Lashon Monteiro MD May 05, 2017 07:43
[2017-05-05 07:44] LABS: ALCOHOL LESS THAN 3 MG/DL (0-5)
[2017-05-05] MEDS ORDERED: BISACODYL 10 MG SUPP RECTAL PRN (07:45)
[2017-05-05] MEDS ORDERED: LACTULOSE SYRUP 20 GM/30 ML CUP PO PRN (07:45)
[2017-05-05] MEDS ORDERED: SENNOSIDES 8.6 MG TAB PO PRN (07:45)
[2017-05-05] MEDS ORDERED: CHLORHEXIDINE GLUCONATE 2 % 1 PACK (2 CLOTHS) TOP PRN (07:45)
[2017-05-05] MEDS ORDERED: MISCELLANEOUS NURSING INFORMATION XX SCH (07:45)
[2017-05-05] MEDS ORDERED: LORazepam 2 MG/ML VIAL IV PUSH PRN ×2 (07:45→10:45)
[2017-05-05] MEDS ORDERED: MAGNESIUM HYDROXIDE SUSP 30 ML CUP PO PRN (07:45)
[2017-05-05] MEDS ORDERED: ONDANSETRON HCL 4 MG/2 ML VIAL IV PUSH PRN (07:45)
[2017-05-05] MEDS ORDERED: RESP: ALBUTEROL 2.5 MG/3 ML NEB (PRN) INH (07:45)
[2017-05-05 07:56] LABS: CKMB 1.6 NG/ML (0.5-3.6)
--- NOTE | 2017-05-05 07:58 | HHI.HP ---
[facility] Service Critical Care Medicine Primary Care Physician Non-Staff Admission Diagnosis Diagnosis: Travel History International Travel<30 Days: No Contact w/Intl Traveler <30 Da: No Traveled to Known Affected Are: No History of Present Illness 62 yo female with PMH of DM, HTN, HLD, nonischemic cardiomyopathy EF 20% with ICD, CK D stage III, peripheral neuropathy, depression/anxiety, obesity , COPD, tobacco abuse who presents to [facility] emergency department following PEA arrest. She notified her brother that she was SOB and she then collapsed and her brother initiated bystander CPR. When [facility] arrived she was in PEA. She was given epinephrine 2 and bicarbonate 1. She was intubated at the scene. She had some twitching movements after arrival and it was unclear if this is related to seizure activity versus myoclonus. Past Family Social History Allergies: Coded Allergies: amoxicillin (Unverified Allergy, Severe, NAUSEA, 05/05/17) clavulanic acid (Unverified Allergy, Severe, NAUSEA, 05/05/17) codeine (Unverified Allergy, Severe, headache, 05/05/17) metformin (Unverified Allergy, Severe, NAUSEA, 05/05/17) morphine (Unverified Allergy, Severe, ITCHING, 05/05/17) Past Medical History Diabetes Hyperlipidemia Hypertension Nonischemic cardiomyopathy with ICD, EF 20% per prior documentation. Chronic kidney disease stage III Depression Anxiety Peripheral neuropathy COPD Tobacco abuse Marijuana abuse Incomplete left bundle branch block Past Surgical History Colostomy in 1997 following diverticular perforation (has been reversed) Hysterectomy, salpingo-oophorectomy Hernia repair Tonsillectomy in the Reported Medications Tizanidine 4 mg by mouth 3 times a day Atorvastatin 20 mg by mouth daily Carvedilol 25 mg by mouth twice a day Spironolactone 25 mg by mouth daily Gapapentin 100 mg by mouth twice a day Sertraline 150 mEq by mouth daily Temazepam 15 mg by mouth daily at bedtime Rizatriptan ODT 10 mg daily Lasix 60 mg po daily. Family History Father with CHF Mother cancer Brother bipolar disorder Sister with ovarian cancer Social History Not able to obtain directly from patient due to clinical condition. EMR reviewed. One half pack per day of smoking for 40 years No alcohol abuse previously reported Urine drug screen positive for cannabinoids Her brother, Saturnino Travis, states: she is not . Her boyfriend "has a brain injury and is not there all the time". She has no children. Her parents are . She has one sister and one brother who are living. Physical Exam Vital Signs Vital Signs Date Time Temp Pulse Resp B/P (MAP) Pulse Ox O2 Delivery O2 Flow Rate FiO2 05/05/17 07:14 98.4 110 35 139/98 (112) 98 Ventilator 100 05/05/17 06:59 60 05/05/17 06:37 97.5 130 18 117/70 (86) 99 05/05/17 06:33 99 60 Physical Exam GENERAL: Obese female who is orotracheally intubated. SKIN: Warm, diaphoretic. HEAD: Atraumatic. Normocephalic. EYES: Right pupil 6 mm and sluggishly reactive 4 mm. Left pupil 4 mm and reacts to 3 mm.. No scleral icterus. No injection or drainage. ENT: No nasal bleeding or discharge. Mucous membranes pink and moist. NECK: Trachea midline. Thick neck, no JVD appreciated. CARDIOVASCULAR: Regular rate and rhythm, sinus rhythm on monitor with rate in 80s. No murmurs rubs or gallops. RESPIRATORY: Decreased air movement bilaterally with coarse breath sounds bilaterally. No Rales. GASTROINTESTINAL: Abdomen obese, soft, without apparent tenderness or rebound. Bowel sounds present. OG tube in place to low intermittent suction with particulate nonbloody gastric output MUSCULOSKELETAL: Extremities without clubbing, cyanosis, or edema. There is muscular atrophy of bilateral lower extremities NEUROLOGICAL: No eye opening. Pupils as per above. No oculocephalic reflex. She is overbreathing the vent. Withdraws bilateral upper extremities. No response to Babinski. No withdrawal bilateral lower extremities. Laboratory Laboratory Tests Test 05/05/17 07:00 05/05/17 07:15 White Blood Count 14.4 Red Blood Count 4.86 Hemoglobin 15.8 Hematocrit 48.3 Mean Corpuscular Volume 99.5 Mean Corpuscular Hemoglobin 32.5 Mean Corpuscular Hemoglobin Concent 32.6 Red Cell Distribution Width 14.6 Platelet Count 183 Mean Platelet Volume 10.2 Neutrophils (%) (Auto) 41.9 Lymphocytes (%) (Auto) 52.3 Monocytes (%) (Auto) 4.5 Eosinophils (%) (Auto) 0.7 Basophils (%) (Auto) 0.6 Neutrophils # (Auto) 6.0 Lymphocytes # (Auto) 7.5 Monocytes # (Auto) 0.7 Eosinophils # (Auto) 0.1 Basophils # (Auto) 0.1 CBC Comment AUTO DIFF Prothrombin Time 10.8 Prothromb Time International Ratio 1.0 Activated Partial Thromboplast Time 27.3 Urine Color LIGHT-YELLOW Urine Turbidity CLEAR Urine pH 6.5 Urine Specific [place] 1.007 Urine Protein TRACE Urine Glucose (UA) NEG Urine Ketones NEG Urine Occult Blood SMALL Urine Nitrite NEG Urine Bilirubin NEG Urine Urobilinogen LESS THAN 2.0 Urine Leukocyte Esterase NEG Urine RBC 4 Urine WBC 1 Microscopic Urinalysis Comment CULT NOT INDICATED Blood Urea Nitrogen 21 Creatinine 1.21 Random Glucose 194 Total Protein 7.3 Albumin 3.4 Calcium Level 8.6 Magnesium Level 2.7 Alkaline Phosphatase 151 Aspartate Amino Transf (AST/SGOT) 245 Alanine Aminotransferase (ALT/SGPT) 177 Total Bilirubin 0.3 Sodium Level 143 Potassium Level 4.1 Chloride Level 104 Carbon Dioxide Level 22.2 Anion Gap 17 Estimat Glomerular Filtration Rate 45 Lactic Acid Level 11.4 Total Creatine Kinase 138 Creatine Kinase MB 1.6 Troponin I 0.03 Lipase 168 Thyroid Stimulating Hormone 3rd Gen 4.890 Urine Opiates Screen NEG Urine Barbiturates Screen NEG Valproic Acid (Depakene) Level LESS THAN 3 Urine Amphetamines Screen NEG Urine Benzodiazepines Screen NEG Urine Cocaine Screen NEG Urine Cannabinoids Screen POS Ethyl Alcohol Level LESS THAN 3 Blood Gas Puncture Site RT RADIAL Blood Gas Patient Temperature 98.6 Blood Gas HCO3 21 Blood Gas Base Excess -6.8 Blood Gas Oxygen Saturation 91 Arterial Blood pH 7.14 Arterial Blood Partial Pressure CO2 64 Arterial Blood Partial Pressure O2 103 Arterial Blood Oxygen Content 19.7 Arterial Blood Carboxyhemoglobin 4.5 Arterial Blood Methemoglobin 0.7 Blood Gas Hemoglobin 15.4 Oxygen Delivery Device VENTILATOR Blood Gas Ventilator Setting Blood Gas Inspired Oxygen 100 Date/Time Source Procedure Growth Status 05/05/17 07:00 Blood Peripheral Aerobic Blood Culture Pending Received 05/05/17 07:00 Blood Peripheral Anaerobic Blood Culture Pending Received Result Diagram: 05/05/17 0705/05/17 07 Caprini VTE Risk Assessment Caprini VTE Risk Assessment: Mod/High Risk (score >= 2) Caprini Risk Assessment Model Point Value = 1 Point Value = 2 Point Value = 3 Point Value = 5 Age 41-60 Minor surgery BMI > 25 kg/m2 Swollen legs Varicose veins or History of unexplained or recurrent spontaneous Oral contraceptives or hormone replacement Sepsis (< 1 month) Serious lung disease, including pneumonia (< 1 month) Abnormal pulmonary function Acute myocardial infarction Congestive heart failure (< 1 month) History of inflammatory bowel disease Medical patient at bed rest Age 61-74 Arthroscopic surgery Major open surgery (> 45 min) Laparoscopic surgery (> 45 min) Malignancy Confined to bed (> 72 hours) Immobilizing plaster cast Central venous access Age >= 75 History of VTE Family history of VTE Factor V Leiden Prothrombin [id number] Lupus anticoagulant Anticardiolipin antibodies Elevated serum homocysteine Heparin-induced thrombocytopenia Other congenital or acquired thrombophilia Stroke (< 1 month) Elective arthroplasty Hip, pelvis, or leg fracture Acute spinal cord injury (< 1 month) Prophylaxis Regimen Total Risk Factor Score Risk Level Prophylaxis Regimen 0-1 Low Early ambulation 2 Moderate Order ONE of the following: *Sequential Compression Device (SCD) *Heparin 5000 units SQ BID 3-4 Higher Order ONE of the following medications: *Heparin 5000 units SQ TID *Enoxaparin/Lovenox 40 mg SQ daily (WT < 150 kg, CrCl > 30 mL/min) *Enoxaparin/Lovenox 30 mg SQ daily (WT < 150 kg, CrCl > 10-29 mL/min) *Enoxaparin/Lovenox 30 mg SQ BID (WT < 150 kg, CrCl > 30 mL/min) AND/OR *Sequential Compression Device (SCD) 5 or more Highest Order ONE of the following medications: *Heparin 5000 units SQ TID (Preferred with Epidurals) *Enoxaparin/Lovenox 40 mg SQ daily (WT < 150 kg, CrCl > 30 mL/min) *Enoxaparin/Lovenox 30 mg SQ daily (WT < 150 kg, CrCl > 10-29 mL/min) *Enoxaparin/Lovenox 30 mg SQ BID (WT < 150 kg, CrCl > 30 mL/min) AND *Sequential Compression Device (SCD) Assessment and Plan Problem List: (1) Nonischemic cardiomyopathy ICD Code: I42.8 - Other cardiomyopathies Status: Chronic (2) PEA (Pulseless electrical activity) ICD Code: I46.9 - Cardiac arrest, cause unspecified Status: Acute (3) Acute respiratory failure with hypoxia and hypercapnia ICD Code: J96.01 - Acute respiratory failure with hypoxia; J96.02 - Acute respiratory failure with hypercapnia Status: Acute (4) Acute encephalopathy ICD Code: G93.40 - Encephalopathy, unspecified Status: Acute (5) Type II diabetes mellitus with complication ICD Code: E11.8 - Type 2 diabetes mellitus with unspecified complications Status: Chronic (6) HTN (hypertension) ICD Code: I10 - Essential (primary) hypertension Status: Chronic (7) HLD (hyperlipidemia) ICD Code: E78.5 - Hyperlipidemia, unspecified Status: Chronic (8) Obesity ICD Code: E66.9 - Obesity, unspecified Status: Chronic (9) CKD (chronic kidney disease) stage 3, GFR 30-59 ml/min ICD Code: N18.3 - Chronic kidney disease, stage 3 (moderate) Status: Chronic (10) LBBB (left bundle branch block) ICD Code: I44.7 - Left bundle-branch block, unspecified Status: Chronic (11) Anxiety ICD Code: F41.9 - Anxiety disorder, unspecified Status: Chronic (12) Depression ICD Code: F32.9 - Major depressive disorder, single episode, unspecified Status: Chronic (13) Marijuana abuse ICD Code: F12.10 - Cannabis abuse, uncomplicated (14) Tobacco abuse ICD Code: Z72.0 - Tobacco use Status: Chronic (15) ICD (implantable cardioverter-defibrillator) in place ICD Code: Z95.810 - Presence of automatic (implantable) cardiac defibrillator Status: Chronic (16) Transaminitis ICD Code: R74.0 - Nonspecific elevation of levels of transaminase and lactic acid dehydrogenase [LDH] Status: Acute (17) Peripheral neuropathy ICD Code: G62.9 - Polyneuropathy, unspecified Status: Chronic (18) Leukocytosis ICD Code: D72.829 - Elevated white blood cell count, unspecified Status: Acute Assessment and Plan NEURO: Acute encephalopathy Myoclonus versus seizure Depression Anxiety Peripheral neuropathy Insomnia CT brain- negative Obtain EEG Unable to obtain MRI due to ICD. Urine drug screen positive for marijuana. Follow-up Tylenol and salicylate level. Check ammonia level. Depakote level <3 (previously on Depakote during prior visit, not active med) Propofol for sedation. Versed bolus as needed as needed Fentanyl for analgosedation. Still no purposeful movement after correction of hypercapnea. Will proceed with inducted therapeutic hypothermia. RESP: Acute hypoxemic and hypercapnic respiratory failure Tobacco abuse COPD DuoNeb every 4 hours. Albuterol every 2 hours as needed. Ventilator bundle. Follow-up CTA chest CV: PEA cardiac arrest Hyperlipidemia Hypertension Nonischemic cardiomyopathy with ICD Lactic acidemia Obtain 2-D echo. Follow-up cardiac markers. Initiate ASA. Hold statin due to elevated LFTs Hold Coreg as will be bradycardic with cooling Hold spironolactone/lasix GI: Obesity Transaminitis Place OG-tube to low intermittent wall suction. Obtain right upper quadrant ultrasound FEN/RENAL: Chronic kidney disease stage III Hypermagnesemia Insert [place]. Monitor intake and output. Monitor electrolytes. Replace as indicated. ID: Leukocytosis Acute community acquired pneumonia Blood culture sent in ED. Send sputum culture now. Check influenza screen, urine and genital antigen, urine pneumococcal antigen, HEME: Hgb elevated ENDO: Diabetes mellitus TSH elevated. Obtain free T3/T4 Monitor bedside glucose every 4 hours with low-dose insulin sliding scale as indicated. PROPH: SCD for DVT prophylaxis. Famotidine 20 mg IV every 12 hours for stress ulcer prophylaxis. ACCESS: PIV Patient is status post PEA cardiac arrest. She is hypercapnic and assynchronous with mechanical ventilation with bronchospasm requiring acute management. She is at high risk for further decompensation and remains critically ill. Her brother, Saturnino Travis, states: she is not . Her boyfriend "has a brain injury and is not there all the time". She has no children. Her parents are . She has one sister and one brother who are living. Reportedly no living will. Josefina Landin MD May 05, 2017 07:58
[2017-05-05] MEDS ORDERED: MIDAZOLAM HCL 2 MG/2 ML VIAL IV PUSH PRN (08:00)
[2017-05-05] MEDS ORDERED: fentaNYL DRIP 250 ML IV PRN (08:15)
[2017-05-05] MEDS ORDERED: IOHEXOL 350 MG/ML 10 ML VIAL (for RAD DIAG) IVCONTRAST ONE (08:17)
[2017-05-05 08:22] LABS: BANDS 3 % (0-6); EOSINOPHILS 1 % (0-4); METAMYELOCYTES 1 % (0-1); MYELOCYTES 1 % (0-0); NEUTROPHIL # MANUAL DIFF 5.6 TH/MM3 (1.8-7.7); POLYS (SEG NEUTROPHILS) 34 % (16-70); SCAN/DIFF FINAL DIFF MANUAL; WBC DIFF SAMPLE 100
--- NOTE | 2017-05-05 08:29 | RADRPT ---
EXAM DATE/TIME: 05/05/2017 07:58 [facility] COMPARISON: CHEST SINGLE AP, May 05, 2017, 7:12. CT PULMONARY ANGIOGRAM, February 08, 2015, 15:22. INDICATIONS : Unresponsive IV CONTRAST: 75 cc Omnipaque 350 (iohexol) IV RADIATION DOSE: 24.6 CTDIvol (mGy) ; Patient body habitus MEDICAL HISTORY : Chronic obstructive pulmonary disease. Cardiovascular disease Hypertension. SURGICAL HISTORY : Colon resection. Pacemaker. ENCOUNTER: Initial ACUITY: 1 day PAIN SCALE: Non-responsive LOCATION: chest TECHNIQUE: Volumetric scanning of the chest was performed using a pulmonary embolism protocol MIP images were re constructed. Using automated exposure control and adjustment of the mA and/or kV according to patien t size, radiation dose was kept as low as reasonably achievable to obtain optimal diagnostic quality images. DICOM format image data is available electronically for review and comparison. Follow-up recommendations for detected pulmonary nodules are based at a minimum on nodule size and pa tient risk factors according to Fleischner Society Guidelines. FINDINGS: PULMONARY ARTERIES: No filling defects are seen in the pulmonary arteries through the segmental level. LUNGS: Patchy airspace disease identified in right upper lobe and left lung base with scattered dependent at electatic changes in both lungs.. PLEURAE: There is no pleural thickening or pleural effusion. MEDIASTINUM: There is good visualization of the great vessels of the middle mediastinum. No evidence of mediastin al or hilar adenopathy/mass. Endotracheal tube appropriately positioned above the nick. MUSCULOSKELETAL: Degenerative spurring of the dorsal spine MISCELLANEOUS: The visualized upper abdominal organs demonstrate no acute abnormality. CONCLUSION: 1. Patchy airspace disease predominantly in the right upper lobe posteriorly and the left base. Findi ngs could represent pneumonic infiltrates. 2. There is also dependent atelectatic changes in both hemithoraces, slightly more prominent on the r ight. 3. No pulmonary embolus or effusion. Saran Perdomo MD on May 05, 2017 at 8:23 Board Certified Radiologist. This report was verified electronically.
--- NOTE | 2017-05-05 08:34 | RADRPT ---
EXAM DATE/TIME: 05/05/2017 07:54 [facility] COMPARISON: No previous studies available for comparison. INDICATIONS : Unresponsive RADIATION DOSE: 56.35 CTDIvol (mGy) MEDICAL HISTORY : Chronic obstructive pulmonary disease. Cardiovascular disease Hyperthyroidism. SURGICAL HISTORY : Pacemaker. Colon resection. ENCOUNTER: Initial ACUITY: 1 day PAIN SCALE: Non-responsive LOCATION: cranial TECHNIQUE: Multiple contiguous axial images were obtained of the head. Using automated exposure control and adj ustment of the mA and/or kV according to patient size, radiation dose was kept as low as reasonably a chievable to obtain optimal diagnostic quality images. DICOM format image data is available electro nically for review and comparison. FINDINGS: Study is motion degraded. CEREBRUM: The ventricles are normal for age. No evidence of midline shift, mass lesion, hemorrhage or acute in farction. No extra-axial fluid collections are seen. POSTERIOR FOSSA: The cerebellum and brainstem are intact. The 4th ventricle is midline. The cerebellopontine angle i s unremarkable. EXTRACRANIAL: The visualized portion of the orbits is intact. SKULL: The calvaria is intact. No evidence of skull fracture. CONCLUSION: No acute disease. Study is motion degraded. Yony Ahmadi Jr., MD on May 05, 2017 at 8:30 Board Certified Radiologist. This report was verified electronically.
[2017-05-05] MEDS ORDERED: GLUCAGON 1 MG/ML VIAL OTHER PRN (08:45)
[2017-05-05] MEDS ORDERED: DEXTROSE 50% IN WATER 50 ML VIAL(D50) IV PUSH PRN (08:45)
[2017-05-05] MEDS ORDERED: AZITHROMYCIN INJ 500 MG in SODIUM CHLOR 0.9% 250 ML INJ 250 ML IV ONE (08:45)
[2017-05-05] MEDS ORDERED: CEFEPIME INJ 2,000 MG in SODIUM CHLORIDE 0.9% INJ 100 ML IV ONE (08:45)
[2017-05-05] MEDS: FAMOTIDINE 20 MG/2 ML VIAL IV PUSH SCH ×2 (08:51→21:53)
[2017-05-05] MEDS: DOCUSATE SODIUM 50 MG/SENNA 8.6 MG TAB PO SCH ×2 (08:51→21:00)
[2017-05-05] MEDS: RESP: ALBUTEROL 2.5 MG/IPRATROPIUM 0.5 MG NEB (SCH) NEB ×3 (08:54→20:00)
[2017-05-05] MEDS ORDERED: ASPIRIN 81 MG CHEW TAB CHEW ONE (09:00)
[2017-05-05 09:10] LABS: LACTIC ACID GHOST NOT REPORTABLE
[2017-05-05] MEDS: INSULIN ASPART SUPPLEMENTAL SCALE SQ SCH ×4 (09:43→21:00)
[2017-05-05] MEDS: SODIUM CHLORIDE 0.9% FLUSH 10 ML FLUSH IV FLUSH SCH ×2 (09:43→21:00)
[2017-05-05] MEDS ORDERED: RESP: ALBUTEROL 2.5 MG/IPRATROPIUM 0.5 MG NEB (SCH) INH (10:00)
[2017-05-05 10:44] LABS: BLOOD GAS BASE EXCESS -5.9 mmol/L (-2-2); BLOOD GAS CARBOXYHEMOGLOBIN 1.4 % (0-4); BLOOD GAS HCO3 20 mmol/L (22-26); BLOOD GAS METHEMOGLOBIN 1.2 % (0-2); BLOOD GAS O2 HGB SATURATION 97 % (90-100); BLOOD GAS PCO2 41 mmHg (38-42); BLOOD GAS PO2 461 mmHg (61-120); BLOOD GAS TOTAL HGB 15.3 G/DL (12.0-16.0); TEMP CORR TO 98.6
[2017-05-05 10:45] LABS: CRITICAL VALUE NO; DRAW SITE RT RADIAL; FIO2 100 %; NUMBER OF ARTERIAL PUNCTURES 1; OXYGEN DEVICE VENTILATOR; STAT YES; ULNAR PULSE PRESENT; VENT SETTINGS PRVC/AC
[2017-05-05] MEDS ORDERED: CISATRACURIUM BESYLATE 20 MG/10 ML VIAL IV PUSH ONE (10:45)
[2017-05-05] MEDS ORDERED: ARTIFICIAL TEARS OPTH OINT 3.5 APPLIC/3.5 GM TUBO EACH EYE PRN (10:45)
[2017-05-05] MEDS ORDERED: SODIUM CHLORIDE 0.9% FLUSH 10 ML FLUSH IV FLUSH PRN (10:45)
[2017-05-05] MEDS ORDERED: MIDAZOLAM 100 MG/100 ML INJ 100 ML IV PRN (11:00)
--- NOTE | 2017-05-05 11:25 | PD.PROCEDR ---
Central Line Procedure REASON FOR PROCEDURE Central venous access PROCEDURE PERFORMED Central line placement: Right heat exchange catheter placement CONSENT Informed consent for procedure was obtained and time out performed. The risks and benefits of the procedure were discussed to include but limited to bleeding , clot formation, infection, and even . ANESTHESIA Local injection of 1% Lidocaine DESCRIPTION OF THE PROCEDURE The patient was placed in supine, mild Trendelenburg position. The area was exposed and cleansed with ChloraPrep, times two. Large sterile drape was used to cover the patient, with the site exposed, under sterile conditions including cap, face mask, sterile gown, and sterile gloves. On single attempt, the introducer needle was inserted with negative pressure in syringe and venous flash was obtained. The guide wire was then advanced without any restriction and the needle was removed. The dilator was used without any complications. Using Seldinger technique the heat exchange catheter was advanced over the guide wire to a depth of 40 centimeters. The guide wire was removed. All ports were aspirated with dark venous blood return and flushed easily with sterile saline. All ports were capped. Antibiotic disc was placed around central line at puncture site. The central line was secured to the skin with two interrupted 2.0 silk sutures. The area was bandaged with sterile see- through central line bandage. COMPLICATIONS: No apparent complications ESTIMATED BLOOD LOSS: Less than 1 cc. Narciso Eduardo MD May 05, 2017 11:25
[2017-05-05] MEDS: CISATRACURIUM INJ 100 MG in SODIUM CHLOR 0.9% 250 ML INJ 240 ML IV PRN ×2 (12:14→23:50)
[2017-05-05] MEDS: HEPARIN SODIUM - SQ 10,000 UNITS/ML VIAL SQ SCH ×2 (13:07→23:51)
[2017-05-05] MEDS: MEPERIDINE HCL 25 MG/ML VIAL IV PRN ×2 (13:53→17:43)
[2017-05-05 13:54] LABS: BICARBONATE 25.9 MEQ/L (21.0-32.0); MAGNESIUM 2.4 MG/DL (1.5-2.5); POTASSIUM 4.4 MEQ/L (3.5-5.1)
--- NOTE | 2017-05-05 15:57 | RADRPT ---
EXAM DATE/TIME: 05/05/2017 14:28 [facility] COMPARISON: No previous studies available for comparison. INDICATIONS : Increased lab values. MEDICAL HISTORY : Congestive heart failure. Hypercholesterolemia. Renal calculi. Cardiomyopathy. Coronary artery diseas e. HTN. Hyperlipidemia. Chronic kidney disease stage III. Peripheral neuropathy. COPD. Asthma. Dyspne a. Ovarian cysts. Hemorrhoids. Arthritis. UTI. Diabetes. Cancer. PTSD. Anxiety. Substance use. Antic oagulant therapy. SURGICAL HISTORY : Tonsillectomy. Pacemaker. Colon resection. Cardiac cath. Left oophorectomy. Hysterectomy. Right hip s urgery. Hernia repair. ENCOUNTER: Initial ACUITY: 1 day PAIN SCORE: Nonresponsive. LOCATION: Bilateral upper quadrant MEASUREMENTS: LIVER: 17.9 cm length COMMON DUCT: 3 mm RIGHT KIDNEY: 12.2 x 4.7 x 5.7 cm SPLEEN: 9.4 cm length FINDINGS: LIVER: Normal echotexture without focal lesion or ductal dilatation. COMMON DUCT: No intraluminal mass or stone visualized. GALLBLADDER: No stones are seen within the gallbladder. There is a trace amount of pericholecystic fluid in the ga llbladder fossa. There is minimal thickening of the gallbladder wall. No stones are seen. PANCREAS: The visualized portions are within normal limits. RIGHT KIDNEY: There is no hydronephrosis. The exam does demonstrate a 9 mm x 6 mm stone in the midpole. There is al so a 1 cm x 9 mm cyst in the midpole as well. The echotexture of the right kidney is somewhat increas ed which can suggest underlying medical renal disease. SPLEEN: No focal lesion. CONCLUSION: 1. No findings to indicate biliary obstruction. 2. Slight thickening of the gallbladder wall with trace amount of pericholecystic fluid. No stones ar e seen within the gallbladder. 3. Mild increased echogenicity of the right renal cortex suggesting underlying medical renal disease. 4. Renal stone and small renal cyst as above. Carlos Roman MD on May 05, 2017 at 15:16 Board Certified Radiologist. This report was verified electronically.
[2017-05-05 16:23] LABS: BICARBONATE 29.7 MEQ/L (21.0-32.0); MAGNESIUM 2.5 MG/DL (1.5-2.5); POTASSIUM 4.1 MEQ/L (3.5-5.1)
[2017-05-05] MEDS: PROPOFOL 1000 MG/100 ML INJ 100 ML IV PRN (18:16)
--- NOTE | 2017-05-05 18:18 | MG ---
cc: STANLEY GARCIA Lab No: Date: 05/05/2017 Age: Sex: F Race: TEST NUMBER [id number] MEDICATIONS Propofol. Code cool. Pacemaker. DESCRIPTION Diffuse very low amplitude recording is seen. There are some bursts of brain activity that come out as high amplitude spike-like activity at a high-frequency at about 8 Hz. This occurs about every 10 seconds or so and lasts about a second or a half second. Photic stimulation was performed without significant posterior driving. IMPRESSION Some bursts of brain activity which does not look particularly normal, it looks rather epileptiform. They are brief. They were not noted to be artifactual by the tech. Otherwise there is severe suppression of the brain activity. At a very high sensitivity setting there might be some diffuse very low amplitude 6 Hz rhythms. Clinical correlation is needed. Part of this could be medication effect, however. MD EDGAR Peoples/KK /5:12 PM /6:17 PM
--- NOTE | 2017-05-05 19:14 | EKG ---
Date Performed: 05/05/2017 Time Performed: 06:37:26 PTAGE: 62 years EKG: SINUS TACHYCARDIA POSSIBLE RIGHT VENTRICULAR CONDUCTION DELAY LEFT BUNDLE BRANCH BLOCK ABNO RMAL ECG Since PREVIOUS TRACING , no significant change noted PREVIOUS TRACIN02/08/2015 16.40 DOCTOR: Moses Murray Interpretating Date/Time 05/05/2017 19:12:19
--- NOTE | 2017-05-05 19:14 | EKG ---
Date Performed: 05/05/2017 Time Performed: 08:28:58 PTAGE: 62 years EKG: Sinus rhythm LEFT BUNDLE BRANCH BLOCK ABNORMAL ECG Since PREVIOUS TRACING , no significant change noted PREVIOUS TRACIN05/05/2017 06.37 DOCTOR: Moses Murray Interpretating Date/Time 05/05/2017 19:12:30
[2017-05-05] MEDS ORDERED: SODIUM CHLORIDE 0.9% FLUSH 10 ML FLUSH IV FLUSH SCH (21:00)
[2017-05-05 21:03] LABS: BICARBONATE 27.1 MEQ/L (21.0-32.0); MAGNESIUM 2.3 MG/DL (1.5-2.5); POTASSIUM 3.8 MEQ/L (3.5-5.1)
[2017-05-05 21:13] LABS: FREE T3 2.54 PG/ML (2.18-3.98); FREE T4 1.18 NG/DL (0.76-1.46)
[2017-05-05] MEDS: CHLORHEXIDINE 0.12% (ORAL KIT) 15 ML CUP MT SCH (21:53)
[2017-05-05] MEDS: CEFEPIME INJ 2,000 MG in SODIUM CHLORIDE 0.9% INJ 100 ML IV SCH (23:51)
[2017-05-06] VITALS (31 sets, daily range): BP systolic 99–147; BP diastolic 55–90; PULSE 89–109; RESP 18; TEMP 91.2–96.3; O2SAT 92–100
[2017-05-06] MEDS: RESP: ALBUTEROL 2.5 MG/IPRATROPIUM 0.5 MG NEB (SCH) NEB ×7 (00:07→23:44)
[2017-05-06] MEDS: INSULIN ASPART SUPPLEMENTAL SCALE SQ SCH ×6 (00:20→21:00)
[2017-05-06] MEDS ORDERED: levETIRAcetam 1000 MG INJ 100 ML IV ONE (01:45)
[2017-05-06] MEDS: ARTIFICIAL TEARS OPTH OINT 3.5 APPLIC/3.5 GM TUBO EACH EYE SCH ×4 (01:45→22:00)
[2017-05-06] MEDS: CHLORHEXIDINE GLUCONATE 2 % 1 PACK (2 CLOTHS) TOP SCH (03:59)
[2017-05-06 05:39] LABS: APTT (PATIENT) 28.7 SEC (24.3-30.1); INTERNATIONAL NORMALIZED RATIO 1.1 RATIO; PROTHROMBIN TIME - PATIENT 12.2 SEC (9.8-11.6)
[2017-05-06 05:51] LABS: AMYLASE 27 U/L (25-115); ANION GAP 12 MEQ/L (5-15); AST (GOT) 148 U/L (15-37); BICARBONATE 23.1 MEQ/L (21.0-32.0); BLOOD UREA NITROGEN 27 MG/DL (7-18); CHLORIDE 105 MEQ/L (98-107); GLOMERULAR FILTRATION RATE 61 ML/MIN (>89); POTASSIUM 3.7 MEQ/L (3.5-5.1); SODIUM (NA) 140 MEQ/L (136-145)
[2017-05-06 05:59] LABS: ALKALINE PHOSPHATASE 139 U/L (45-117); ALT (GPT) 197 U/L (10-53); TOTAL BILIRUBIN ADULT 0.7 MG/DL (0.2-1.0)
[2017-05-06 06:19] LABS: AUTOMATED NEUTROPHIL # 20.7 TH/MM3 (1.8-7.7); BASOPHIL % 0.1 % (0.0-2.0); EOSINOPHIL % 0.1 % (0.0-4.0); HEMATOCRIT 53.4 % (35.0-46.0); HEMO FLAGS DIFF FINAL; LYMPHOCYTE # 1.4 TH/MM3 (1.0-4.8); MEAN CORPUSCULAR HEMOGLOBIN 32.8 PG (27.0-34.0); MEAN CORPUSCULAR HGB CONC 33.8 % (32.0-36.0); MONO % 5.5 % (0.0-8.0); NEUT % 88.3 % (16.0-70.0); PLATELET COUNT 162 TH/MM3 (150-450); RED BLOOD COUNT 5.51 MIL/MM3 (4.00-5.30); RED CELL DISTRIBUTION WIDTH 14.1 % (11.6-17.2); WHITE BLOOD COUNT 23.4 TH/MM3 (4.0-11.0)
[2017-05-06] MEDS: PROPOFOL 1000 MG/100 ML INJ 100 ML IV PRN ×2 (07:06→18:08)
[2017-05-06] MEDS: levETIRAcetam INJ 500 MG in SODIUM CHLORIDE 0.9% INJ 100 ML IV SCH ×2 (07:59→21:07)
[2017-05-06] MEDS: SODIUM CHLORIDE 0.9% FLUSH 10 ML FLUSH IV FLUSH SCH ×2 (08:00→21:07)
[2017-05-06] MEDS: CHLORHEXIDINE 0.12% (ORAL KIT) 15 ML CUP MT SCH ×2 (08:00→19:24)
[2017-05-06] MEDS: AZITHROMYCIN INJ 500 MG in SODIUM CHLOR 0.9% 250 ML INJ 250 ML IV SCH (08:00)
--- NOTE | 2017-05-06 08:08 | HHI.CCPN ---
Subjective Remarks/Hospital Course 05/05: 62 yo female with PMH of DM, HTN, HLD, nonischemic cardiomyopathy EF 20% with ICD, CK D stage III, peripheral neuropathy, depression/anxiety, obesity, COPD, tobacco abuse who presents to [facility] emergency department following PEA arrest. She notified her brother that she was SOB and she then collapsed and her brother initiated bystander CPR. When [facility] arrived she was in PEA. She was given epinephrine 2 and bicarbonate 1. She was intubated at the scene. She had some twitching movements after arrival and it was unclear if this is related to seizure activity versus myoclonus. 05/06: Remains sedated, on neuromuscular blockade, orally intubated on mechanical ventilation. On therapeutic hypothermia protocol. Objective Vital Signs Date Time Temp Pulse Resp B/P (MAP) Pulse Ox O2 Delivery O2 Flow Rate FiO2 05/06/17 07:00 103 05/06/17 07:00 91.6 18 125/77 (93) 100 05/06/17 04:23 80 05/05/17 09:27 Ventilator Intake and Output 05/06/17 05/06/17 05/07/17 08:00 16:00 00:00 Intake Total 791 ml Output Total 715 ml Balance 76 ml Result Diagram: 05/06/17 0515 05/06/17 0515 Other Results Microbiology Date/Time Source Procedure Growth Status 05/05/17 13:55 Nasal Aspirate Influenza Types A,B Antigen (PRATIK) - Final NEGATIVE FOR FLU A AND B ANTIGEN.... Complete 05/05/17 07:00 Urine Catheterized Urine Legionella Antigen - Final PRESUMPTIVE NEGATIVE FOR LEGIONELLA P... Complete 05/05/17 07:00 Urine Catheterized Urine Streptococcus pneumoniae Antigen (M - Final PRESUMPTIVE NEGATIVE FOR STREPTOCOCCU... Complete Laboratory Tests Test 05/05/17 10:35 Blood Gas Puncture Site RT RADIAL Blood Gas Patient Temperature 98.6 Blood Gas HCO3 20 mmol/L (22-26) Blood Gas Base Excess -5.9 mmol/L (-2-2) Blood Gas Oxygen Saturation 97 % (90-100) Arterial Blood pH 7.30 (7.380-7.420) Arterial Blood Partial Pressure CO2 41 mmHg (38-42) Arterial Blood Partial Pressure O2 461 mmHg (61-120) Arterial Blood Oxygen Content 22.0 Vol % (12.0-20.0) Arterial Blood Carboxyhemoglobin 1.4 % (0-4) Arterial Blood Methemoglobin 1.2 % (0-2) Blood Gas Hemoglobin 15.3 G/DL (12.0-16.0) Oxygen Delivery Device VENTILATOR Blood Gas Ventilator Setting PRVC/AC Blood Gas Inspired Oxygen 100 % Imaging Last Impressions Chest X-Ray 05/05/17 0648 Signed Impressions: Service Date/Time: Friday, May 05, 2017 07:12 - CONCLUSION: 1. Endotracheal and nasogastric tubes are in good position. 2. Cardiomegaly with vascular congestion but no evidence of pulmonary edema consolidating airspace disease. 3. AICD. Mikael Hinton MD Liver Ultrasound 05/05/17 0000 Signed Impressions: Service Date/Time: Friday, May 05, 2017 14:28 - CONCLUSION: 1. No findings to indicate biliary obstruction. 2. Slight thickening of the gallbladder wall with trace amount of pericholecystic fluid. No stones are seen within the gallbladder. 3. Mild increased echogenicity of the right renal cortex suggesting underlying medical renal disease. 4. Renal stone and small renal cyst as above. Carlos Roman MD Head CT 05/05/17 0000 Signed Impressions: Service Date/Time: Friday, May 05, 2017 07:54 - CONCLUSION: No acute disease. Study is motion degraded. Yony Ahmadi Jr., MD CT Angiography 05/05/17 0000 Signed Impressions: Service Date/Time: Friday, May 05, 2017 07:58 - CONCLUSION: 1. Patchy airspace disease predominantly in the right upper lobe posteriorly and the left base. Findings could represent pneumonic infiltrates. 2. There is also dependent atelectatic changes in both hemithoraces, slightly more prominent on the right. 3. No pulmonary embolus or effusion. Saran Perdomo MD Objective Remarks GENERAL: Obese female who is orotracheally intubated. SKIN: Warm, diaphoretic. HEAD: Atraumatic. Normocephalic. EYES: Right pupil 6 mm and sluggishly reactive 4 mm. Left pupil 4 mm and reacts to 3 mm.. No scleral icterus. No injection or drainage. ENT: No nasal bleeding or discharge. Mucous membranes pink and moist. NECK: Trachea midline. Thick neck, no JVD appreciated. CARDIOVASCULAR: Regular rate and rhythm, sinus rhythm on monitor with rate in 80s. No murmurs rubs or gallops. RESPIRATORY: Decreased air movement bilaterally with coarse breath sounds bilaterally. No Rales. GASTROINTESTINAL: Abdomen obese, soft, without apparent tenderness or rebound. Bowel sounds present. OG tube in place to low intermittent suction with particulate nonbloody gastric output MUSCULOSKELETAL: Extremities without clubbing, cyanosis, or edema. There is muscular atrophy of bilateral lower extremities NEUROLOGICAL: No eye opening. Pupils as per above. No oculocephalic reflex. She is overbreathing the vent. Withdraws bilateral upper extremities. No response to Babinski. No withdrawal bilateral lower extremities. A/P Problem List: (1) Nonischemic cardiomyopathy ICD Code: I42.8 - Other cardiomyopathies Status: Chronic (2) PEA (Pulseless electrical activity) ICD Code: I46.9 - Cardiac arrest, cause unspecified Status: Acute (3) Acute respiratory failure with hypoxia and hypercapnia ICD Code: J96.01 - Acute respiratory failure with hypoxia; J96.02 - Acute respiratory failure with hypercapnia Status: Acute (4) Acute encephalopathy ICD Code: G93.40 - Encephalopathy, unspecified Status: Acute (5) Type II diabetes mellitus with complication ICD Code: E11.8 - Type 2 diabetes mellitus with unspecified complications Status: Chronic (6) HTN (hypertension) ICD Code: I10 - Essential (primary) hypertension Status: Chronic (7) HLD (hyperlipidemia) ICD Code: E78.5 - Hyperlipidemia, unspecified Status: Chronic (8) Obesity ICD Code: E66.9 - Obesity, unspecified Status: Chronic (9) CKD (chronic kidney disease) stage 3, GFR 30-59 ml/min ICD Code: N18.3 - Chronic kidney disease, stage 3 (moderate) Status: Chronic (10) LBBB (left bundle branch block) ICD Code: I44.7 - Left bundle-branch block, unspecified Status: Chronic (11) Anxiety ICD Code: F41.9 - Anxiety disorder, unspecified Status: Chronic (12) Depression ICD Code: F32.9 - Major depressive disorder, single episode, unspecified Status: Chronic (13) Marijuana abuse ICD Code: F12.10 - Cannabis abuse, uncomplicated (14) Tobacco abuse ICD Code: Z72.0 - Tobacco use Status: Chronic (15) ICD (implantable cardioverter-defibrillator) in place ICD Code: Z95.810 - Presence of automatic (implantable) cardiac defibrillator Status: Chronic (16) Transaminitis ICD Code: R74.0 - Nonspecific elevation of levels of transaminase and lactic acid dehydrogenase [LDH] Status: Acute (17) Peripheral neuropathy ICD Code: G62.9 - Polyneuropathy, unspecified Status: Chronic (18) Leukocytosis ICD Code: D72.829 - Elevated white blood cell count, unspecified Status: Acute Assessment and Plan NEURO: Possible anoxic encephalopathy Myoclonus versus seizure Depression Anxiety Peripheral neuropathy Insomnia CT brain- negative Obtain EEG Unable to obtain MRI due to ICD. Urine drug screen positive for marijuana. Depakote level <3 (previously on Depakote during prior visit, not active med) Propofol for sedation. On Nimbex for neuromuscular blockade Versed bolus as needed as needed Fentanyl for analgosedation-currently off. Neurology consulted for question of anoxic encephalopathy. EEG abnormal. RESP: Acute hypoxemic and hypercapnic respiratory failure Tobacco abuse COPD DuoNeb every 4 hours. Albuterol every 2 hours as needed. Ventilator bundle. CTA chest negative for PE CV: PEA cardiac arrest Hyperlipidemia Hypertension Nonischemic cardiomyopathy with ICD Lactic acidemia Obtain 2-D echo. Follow-up cardiac markers. Continue ASA. Hold statin due to elevated LFTs Hold Coreg as will be bradycardic with cooling Hold spironolactone/lasix GI: Obesity Transaminitis OG-tube to low intermittent wall suction. Obtain right upper quadrant ultrasound FEN/RENAL: Chronic kidney disease stage III Hypermagnesemia Insert Palma. Monitor intake and output. Monitor electrolytes. Replace as indicated. ID: Leukocytosis Acute community acquired pneumonia Follow up blood and sputum cultures. Check influenza screen, urine Legionella antigen, urine pneumococcal antigen, Continue the azithromycin/cefepime IV for empiric antibiotic coverage. HEME: Hgb elevated ENDO: Diabetes mellitus TSH elevated. Obtain free T3/T4 Monitor bedside glucose every 4 hours with low-dose insulin sliding scale as indicated. PROPH: SCD for DVT prophylaxis. Famotidine 20 mg IV every 12 hours for stress ulcer prophylaxis. ACCESS: PIV, cool guard cooling catheter Patient is status post PEA cardiac arrest with possible anoxic encephalopathy undergoing hypothermia protocol. She is at high risk for further decompensation and remains critically ill. Her brother, Saturnino Travis, states: she is not . Her boyfriend "has a brain injury and is not there all the time". She has no children. Her parents are . She has one sister and one brother who are living. Reportedly no living will. Consulted palliative care team to assist with deciding goals of therapy. Neurology consult requested for question of anoxic encephalopathy. Time spent on critical care excluding procedures 35 minutes Mian Espinal MD May 06, 2017 08:08
[2017-05-06] MEDS: LANSOPRAZOLE SOLUTAB 30 MG TAB NG SCH (08:18)
[2017-05-06] MEDS: ASPIRIN 81 MG CHEW TAB OG-TUBE SCH (08:18)
[2017-05-06] MEDS: DOCUSATE SODIUM 100 MG/10 ML UDC PO SCH ×2 (08:24→21:07)
[2017-05-06] MEDS: SENNOSIDES SYRUP 8.8 MG/5 ML CUP PO SCH ×2 (08:24→21:07)
[2017-05-06] MEDS ORDERED: levETIRAcetam 1000 MG INJ 100 ML IV SCH (09:00)
[2017-05-06] MEDS ORDERED: FAMOTIDINE 40 MG/5 ML LIQ 50 ML BTL NG SCH (09:00)
--- NOTE | 2017-05-06 09:09 | PD.CONS ---
History of Present Illness Service Neurology Consult Requested By [facility] Reason for Consult cardiac arrest Primary Care Physician Non-Staff History of Present Illness 62 yo female with PMH of DM, HTN, HLD, nonischemic cardiomyopathy EF 20% with ICD, CK D stage III, peripheral neuropathy, depression/anxiety, obesity , COPD, tobacco abuse who presents to [facility] emergency department following PEA arrest noted by EVAC. She was intubated at the scene. noted to have twitching movements. eeg- abnormal. burst suppresion type pattern. she is currently undergoing code cool, on nimbex and diprivan gtt. limited medical hx secondary to pt's mental status. obtained from medical chart review. unable to get ros. Past Family Social History Allergies: Coded Allergies: amoxicillin (Unverified Allergy, Severe, NAUSEA, 05/05/17) clavulanic acid (Unverified Allergy, Severe, NAUSEA, 05/05/17) codeine (Unverified Allergy, Severe, headache, 05/05/17) metformin (Unverified Allergy, Severe, NAUSEA, 05/05/17) morphine (Unverified Allergy, Severe, ITCHING, 05/05/17) Past Medical History Diabetes Hyperlipidemia Hypertension Nonischemic cardiomyopathy with ICD, EF 20% per prior documentation. Chronic kidney disease stage III Depression Anxiety Peripheral neuropathy COPD Tobacco abuse Marijuana abuse Incomplete left bundle branch block Family History Father with CHF Mother cancer Brother bipolar disorder Social History Not able to obtain directly from patient due to clinical condition. EMR reviewed. One half pack per day of smoking for 40 years Review of Systems All other ROS: Unable to obtain Past Family Social History Allergies: Coded Allergies: amoxicillin (Unverified Allergy, Severe, NAUSEA, 05/05/17) clavulanic acid (Unverified Allergy, Severe, NAUSEA, 05/05/17) codeine (Unverified Allergy, Severe, headache, 05/05/17) metformin (Unverified Allergy, Severe, NAUSEA, 05/05/17) morphine (Unverified Allergy, Severe, ITCHING, 05/05/17) Active Ordered Medications Current Medications Medications (Trade) Dose Ordered Sig/Janine Route Start Time Stop Time Status Last Admin (NS Flush) 2 ml UNSCH PRN IV FLUSH 05/05/17 07:45 (NS Flush) 2 ml BID IV FLUSH 05/05/17 09:00 05/06/17 08:00 (Zofran Inj) 4 mg Q6H PRN IV PUSH 05/05/17 07:45 (Albuterol Neb) 2.5 mg Q2HR NEB PRN INH 05/05/17 07:45 Miscellaneous Information 1 Q361D XX 05/05/17 07:45 05/05/17 07:45 (Chlorhexidine 2% Cloth) 3 pack Taper DAILY@04 TOP 05/06/17 04:00 05/02/18 03:59 05/06/17 03:59 (Chlorhexidine 2% Cloth) 3 pack UNSCH PRN TOP 05/05/17 07:45 (Milk Of Magnesia Liq) 30 ml Q12H PRN PO 05/05/17 07:45 (Senokot) 17.2 mg Q12H PRN PO 05/05/17 07:45 (Lactulose Liq) 30 ml DAILY PRN PO 05/05/17 07:45 Propofol 100 ml @ 2.25 mls/hr TITRATE PRN IV 05/05/17 08:00 05/06/17 07:06 (Duoneb Neb) 1 ampule Q4HR NEB NEB 05/05/17 08:00 05/06/17 08:31 Fentanyl Citrate 250 ml @ 5 mls/hr TITRATE PRN IV 05/05/17 08:15 (D50w (Vial) Inj) 50 ml UNSCH PRN IV PUSH 05/05/17 08:45 (Glucagon Inj) 1 mg UNSCH PRN OTHER 05/05/17 08:45 (NovoLOG SUPPLEMENTAL SCALE) 1 Q4H SQ 05/05/17 09:00 05/05/17 12:37 (Aspirin Chew) 81 mg DAILY OG-TUBE 05/06/17 09:00 05/06/17 08:18 Azithromycin 500 mg/Sodium Chloride 250 ml @ 250 mls/hr Q24H IV 05/06/17 09:00 05/06/17 08:00 Cefepime HCl 2000 mg/Sodium Chloride 100 ml @ 200 mls/hr Q12H IV 05/06/17 00:00 05/05/17 23:51 (Peridex 0.12% Liq) 15 ml BID@08,20 MT 05/05/17 20:00 05/06/17 08:00 Midazolam HCl 100 ml @ 2 mls/hr TITRATE PRN IV 05/05/17 11:00 Cisatracurium Besylate 100 mg/ Sodium Chloride 250 ml @ 37.12 mls/ hr TITRATE PRN IV 05/05/17 12:00 05/05/17 23:50 Miscellaneous Information 0 ml @ 0 mls/hr UNSCH IV 05/05/17 10:45 Norepinephrine Bitartrate 4 mg/ Sodium Chloride 250 ml @ 7.5 mls/hr TITRATE PRN IV 05/05/17 10:45 (Heparin Inj) 5,000 units Q12H SQ 05/05/17 11:00 05/05/17 23:51 (Lacrilube Opht Oint) 1 applic Q8HR EACH EYE 05/06/17 01:45 05/06/17 01:45 (Colace Liq) 100 mg Q12HR PO 05/06/17 09:00 05/06/17 08:24 (Senna Liq) 8.8 mg Q12HR PO 05/06/17 09:00 05/06/17 08:24 (Prevacid Odt) 30 mg DAILY NG 05/06/17 09:00 05/06/17 08:18 Levetriacetam 500 mg/Sodium Chloride 105 ml @ 420 mls/hr Q12HR IV 05/06/17 09:00 05/06/17 07:59 Exam I&O / VS 05/06/17 05/06/17 05/07/17 15:00 23:00 07:00 Intake Total 293 ml Output Total 190 ml Balance 103 ml IV Total 293 ml Output Urine Total 190 ml Vital Signs Date Time Temp Pulse Resp B/P (MAP) Pulse Ox O2 Delivery O2 Flow Rate FiO2 05/06/17 08:32 94 50 05/06/17 08:00 50 05/06/17 07:00 103 05/06/17 07:00 91.6 103 18 125/77 (93) 100 05/06/17 06:00 104 05/06/17 06:00 92.1 104 18 130/83 (99) 100 05/06/17 05:00 101 05/06/17 05:00 92.1 101 18 135/74 (94) 100 05/06/17 04:23 100 80 05/06/17 04:00 92.1 109 18 138/86 (103) 100 05/06/17 04:00 80 05/06/17 04:00 109 05/06/17 03:00 106 05/06/17 03:00 92.1 106 18 136/84 (101) 100 05/06/17 02:00 106 05/06/17 02:00 92.1 106 18 138/85 (102) 100 05/06/17 01:00 103 05/06/17 01:00 92.1 103 18 147/84 (105) 100 05/06/17 00:07 100 80 05/06/17 00:00 80 05/06/17 00:00 99 05/06/17 00:00 92.1 99 18 136/90 (105) 100 05/05/17 23:00 97 05/05/17 23:00 91.1 97 18 136/87 (103) 100 05/05/17 22:00 97 05/05/17 22:00 91.1 97 18 139/87 (104) 100 05/05/17 21:00 92.1 99 18 139/89 (106) 100 05/05/17 21:00 99 05/05/17 20:00 95 05/05/17 20:00 80 05/05/17 20:00 92.1 91 18 139/85 (103) 100 05/05/17 19:52 100 80 05/05/17 19:00 95 05/05/17 19:00 92.1 95 18 134/94 (107) 100 05/05/17 18:15 94 05/05/17 18:00 93 05/05/17 18:00 91.4 90 18 142/84 (103) 100 05/05/17 17:45 91 05/05/17 17:30 78 05/05/17 17:15 75 05/05/17 17:00 91.8 75 18 127/83 (98) 98 05/05/17 17:00 86 05/05/17 16:45 82 05/05/17 16:30 80 05/05/17 16:15 80 05/05/17 16:11 93 80 05/05/17 16:00 80 05/05/17 16:00 80 05/05/17 16:00 91.5 80 18 135/87 (103) 95 05/05/17 15:46 80 05/05/17 15:30 79 05/05/17 15:15 79 05/05/17 15:12 100 60 05/05/17 15:00 91.8 81 18 131/80 (97) 100 05/05/17 15:00 81 05/05/17 14:45 84 05/05/17 14:30 85 05/05/17 14:15 88 05/05/17 14:15 91.4 87 18 130/82 (98) 100 05/05/17 14:00 92 05/05/17 13:45 92.6 94 18 130/89 (103) 100 05/05/17 13:45 81 05/05/17 13:30 85 05/05/17 13:15 93.9 91 18 129/81 (97) 100 05/05/17 13:15 91 05/05/17 13:00 111 05/05/17 12:45 94.6 101 18 126/83 (97) 100 05/05/17 12:45 90 05/05/17 12:30 94 05/05/17 12:15 97.3 101 18 133/88 (103) 100 05/05/17 12:15 101 05/05/17 12:00 111 05/05/17 11:47 122 05/05/17 11:45 98.4 124 18 145/98 (114) 98 05/05/17 11:30 123 05/05/17 11:15 120 05/05/17 11:00 100 05/05/17 11:00 97 05/05/17 10:25 98 100 05/05/17 10:20 05/05/17 09:27 97.2 89 34 142/94 (110) 99 Ventilator 100 Exam Comments coma state. on paralytics, non-verbal, not following, od 5mm os 2mm nr, no corneals, no grimace, no involuntary movements, no withdrawal to tactile Review/Management Diagnosis/Plan: (1) Anoxic encephalopathy ICD Codes: G93.1 - Anoxic brain damage, not elsewhere classified Status: Acute Plan: limited exam 2/2 sedation/paralytics asymmetric pupils eeg- burst suppresion 05/05 ct brain naicp recs add iv keppra can re-eval 72 hrs after code cool dc'd/early next week mri brain when medically feasible d/w rn overall prognosis does appear good based on pea arrest and multiple medical co- morbidities can consider palliative care eval (2) PEA (Pulseless electrical activity) ICD Codes: I46.9 - Cardiac arrest, cause unspecified Status: Acute (3) Acute respiratory failure with hypoxia and hypercapnia ICD Codes: J96.01 - Acute respiratory failure with hypoxia; J96.02 - Acute respiratory failure with hypercapnia Status: Acute Stewart Wallace MD May 06, 2017 09:09
[2017-05-06] MEDS: HEPARIN SODIUM - SQ 10,000 UNITS/ML VIAL SQ SCH ×2 (10:52→22:33)
[2017-05-06] MEDS ORDERED: levETIRAcetam 500MG PREMIX INJ 100 ML IV SCH (11:00)
[2017-05-06] MEDS: CEFEPIME INJ 2,000 MG in SODIUM CHLORIDE 0.9% INJ 100 ML IV SCH ×2 (11:51→23:53)
--- NOTE | 2017-05-06 14:16 | PD.CONS ---
Consult Service Palliative Care Consult Requested By Dr. Espinal . Primary Care Physician Non-Staff . Reason for Consultation a. To assist with evaluation and management of symptoms including: Dyspnea , encephalopathy b. To assist medical decision maker(s) with: better understanding of current medical conditions; weighing benefits/burdens of medical treatment options; making medical treatment decisions. . HPI History of Present Illness This 62-year-old female, with a past history of CHF/cardiomyopathy with EF 20%, COPD, diabetes, obesity, chronic pain, and chronic kidney disease, developed acute shortness of breath on 05/05/17 and then became unresponsive. The patient 's brother was with her, and although he had had no training in CPR, he attempted chest compressions for a couple minutes. Paramedics were called and found her in a PEA rhythm, and resuscitation efforts were initiated. The patient's sister reports that they had considerable difficulty getting her out of the home due to physical restrictions in the facility. Eventually, there was return of spontaneous circulation prior to arrival at the hospital. In the emergency department, findings included: * Unresponsive, some seizure activity versus myoclonus * Temp 97.3, pulse 88, respirations 32, blood pressure 135/66, oxygen saturation 99% on 100% ventilator * White count 14.4, hemoglobin 15.8 * Sodium 143, creatinine 1.21 * Troponin 0.28 * Chest x-ray with cardiomegaly * CT head with no acute findings * CT angiography of the chest revealed infiltrates in the right upper lobe and left base The patient [place] [facility] and the decision was made to use hypothermia because of the concern for anoxic brain injury. The patient was cooled just afternoon yesterday, and the rewarming process is set to begin at about 2 PM today. The patient had an EEG that did reveal some burst suppression, and neurology saw the patient, indicating a likely anoxic encephalopathy and poor prognosis. The patient has had chronic musculoskeletal pain for several years, and she has reportedly been on prescription pain medicines every day during that time. Palliative Care was consulted to assist with symptom management, and to enter into discussions with the patient's family regarding her current illnesses, the prognosis, and the benefits and burdens of the various treatment choices. . Function/Cognitive Trajectory The patient "had to move slow" but she was ambulatory without assistive device, and she could still drive a car. . Review of Systems ROS Limitations: Clinical Condition (unresponsive, limited history per records and nursing staff, supplemented by patient's sister) Endocrine: DENIES: Polyuria Eyes: DENIES: Eye inflammation Ears, nose, mouth, throat: DENIES: Epistaxis Respiratory: COMPLAINS OF: Shortness of breath Cardiovascular: COMPLAINS OF: Syncope Gastrointestinal: DENIES: Diarrhea, Vomiting Genitourinary: DENIES: Hematuria Musculoskeletal: COMPLAINS OF: Joint pain (chronic), Muscle aches (chronic), Back pain (chronic) Integumentary: DENIES: Rash Hematologic/Lymphatics: DENIES: Bruising Immunologic/Allergic: DENIES: Urticaria Neurologic: COMPLAINS OF: Seizures (or possibly myoclonus) Psychiatric: DENIES: Agitation Past Family Social History Coded Allergies: amoxicillin (Unverified Allergy, Severe, NAUSEA, 05/05/17) clavulanic acid (Unverified Allergy, Severe, NAUSEA, 05/05/17) codeine (Unverified Allergy, Severe, headache, 05/05/17) metformin (Unverified Allergy, Severe, NAUSEA, 05/05/17) morphine (Unverified Allergy, Severe, ITCHING, 05/05/17) Past Medical History * CHF/cardiomyopathy, EF 20% * COPD * Long-term cigarette smoker * Diabetes * Obesity * Depression * Hyperlipidemia * Hypertension * CKD III . 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 Reported Medications Reported Meds & Active Scripts Active Reported Atorvastatin (Atorvastatin Calcium) 20 Mg Tab 20 Mg PO DAILY Gabapentin 100 Mg Cap 100 Mg PO BID Sertraline (Sertraline HCl) 50 Mg Tab 150 Mg PO DAILY Carvedilol 25 Mg Tab 25 Mg PO BID Furosemide 20 Mg Tab 20 Mg PO DAILY Spironolactone 25 Mg Tab 25 Mg PO DAILY Temazepam 15 Mg Cap 15 Mg PO HS PRN Tizanidine (Tizanidine HCl) 4 Mg Cap 4 Mg PO TID Furosemide 40 Mg Tab 40 Mg PO DAILY Rizatriptan Odt (Rizatriptan Benzoate) 10 Mg Tab SL . Current Medications Medications (Trade) Dose Ordered Sig/Janine Route Start Time Stop Time Status Last Admin (NS Flush) 2 ml UNSCH PRN IV FLUSH 05/05/17 07:45 (NS Flush) 2 ml BID IV FLUSH 05/05/17 09:00 05/06/17 08:00 (Zofran Inj) 4 mg Q6H PRN IV PUSH 05/05/17 07:45 (Albuterol Neb) 2.5 mg Q2HR NEB PRN INH 05/05/17 07:45 Miscellaneous Information 1 Q361D XX 05/05/17 07:45 05/05/17 07:45 (Chlorhexidine 2% Cloth) 3 pack Taper DAILY@04 TOP 05/06/17 04:00 05/02/18 03:59 05/06/17 03:59 (Chlorhexidine 2% Cloth) 3 pack UNSCH PRN TOP 05/05/17 07:45 (Milk Of Magnesia Liq) 30 ml Q12H PRN PO 05/05/17 07:45 (Senokot) 17.2 mg Q12H PRN PO 05/05/17 07:45 (Lactulose Liq) 30 ml DAILY PRN PO 05/05/17 07:45 Propofol 100 ml @ 2.25 mls/hr TITRATE PRN IV 05/05/17 08:00 05/06/17 07:06 (Duoneb Neb) 1 ampule Q4HR NEB NEB 05/05/17 08:00 05/06/17 11:08 Fentanyl Citrate 250 ml @ 5 mls/hr TITRATE PRN IV 05/05/17 08:15 (D50w (Vial) Inj) 50 ml UNSCH PRN IV PUSH 05/05/17 08:45 (Glucagon Inj) 1 mg UNSCH PRN OTHER 05/05/17 08:45 (NovoLOG SUPPLEMENTAL SCALE) 1 Q4H SQ 05/05/17 09:00 05/05/17 12:37 (Aspirin Chew) 81 mg DAILY OG-TUBE 05/06/17 09:00 05/06/17 08:18 Azithromycin 500 mg/Sodium Chloride 250 ml @ 250 mls/hr Q24H IV 05/06/17 09:00 05/06/17 08:00 Cefepime HCl 2000 mg/Sodium Chloride 100 ml @ 200 mls/hr Q12H IV 05/06/17 00:00 05/06/17 11:51 (Peridex 0.12% Liq) 15 ml BID@08,20 MT 05/05/17 20:00 05/06/17 08:00 Midazolam HCl 100 ml @ 2 mls/hr TITRATE PRN IV 05/05/17 11:00 Cisatracurium Besylate 100 mg/ Sodium Chloride 250 ml @ 37.12 mls/ hr TITRATE PRN IV 05/05/17 12:00 05/05/17 23:50 Miscellaneous Information 0 ml @ 0 mls/hr UNSCH IV 05/05/17 10:45 Norepinephrine Bitartrate 4 mg/ Sodium Chloride 250 ml @ 7.5 mls/hr TITRATE PRN IV 05/05/17 10:45 (Heparin Inj) 5,000 units Q12H SQ 05/05/17 11:00 05/06/17 10:52 (Lacrilube Opht Oint) 1 applic Q8HR EACH EYE 05/06/17 01:45 05/06/17 12:36 (Colace Liq) 100 mg Q12HR PO 05/06/17 09:00 05/06/17 08:24 (Senna Liq) 8.8 mg Q12HR PO 05/06/17 09:00 05/06/17 08:24 (Prevacid Odt) 30 mg DAILY NG 05/06/17 09:00 05/06/17 08:18 Levetriacetam 500 mg/Sodium Chloride 105 ml @ 420 mls/hr Q12HR IV 05/06/17 09:00 05/06/17 07:59 Family History Father of CHF, and mother of cancer at age 80 in 2009. One brother is bipolar, and one sister has had ovarian cancer. . Substance Use Tobacco: 21 pack per day for 40 years Alcohol: Occasional Prescription med abuse: None Illicits: Marijuana use . Psychosocial History She was born in [place], but moved to [place] with her family at the age of 4 , and his lived in this area since then. She currently lives with her brother Saturnino, her boyfriend, and a nephew. The patient has never been , and does not have any children. She has one sister and one brother living. 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 . Spiritual/Cultural Factors The patient's sister reports that the patient has "eclectic believes, "and they change at times. The patient's sister Karla is a cloth washer operator and is ministering to the patient on a regular basis. . Living Will: Never completed Health Care Surrogate: Never completed Durable Power of Manufacturing Sales Representative: Never completed Family/friends goals: The patient's sister Karla reports that the patient has on numerous occasions told the rest of the family that she would not want to be kept alive artificially if she would not have essentially a complete recovery, as she would never want to be in a [place] health care facility or dependent on others for 13/01 care. Karla also says that she does "not believe in prolonging the dying process 1 minute longer than is necessary." She does want to see what happens over these next couple days after rewarming the patient, and she notes that she is "hoping for certainty and clarity." . Ethical and Legal Issues There are no ethical issues that would impact her care or decision-making at this time. The patient lacks capacity for decision-making and she will not regain that capacity. Her sister Karla and brother Saturnino are her proxy decision makers. . Physical Exam Vital Signs Date Time Temp Pulse Resp B/P (MAP) Pulse Ox O2 Delivery O2 Flow Rate FiO2 05/06/17 13:00 93 05/06/17 13:00 91.6 93 18 124/74 (91) 97 05/06/17 12:00 50 05/06/17 12:00 91.9 100 18 127/76 (93) 97 05/06/17 12:00 100 05/06/17 11:28 96 80 05/06/17 11:00 91.9 100 18 120/72 (88) 96 05/06/17 11:00 100 05/06/17 10:00 101 05/06/17 10:00 91.2 101 18 107/64 (78) 98 05/06/17 09:00 91.8 97 18 104/64 (77) 98 05/06/17 09:00 97 05/06/17 08:32 94 50 05/06/17 08:00 91.6 97 18 120/72 (88) 100 05/06/17 08:00 97 05/06/17 08:00 50 05/06/17 07:00 103 05/06/17 07:00 91.6 103 18 125/77 (93) 100 05/06/17 06:00 104 05/06/17 06:00 92.1 104 18 130/83 (99) 100 05/06/17 05:00 101 05/06/17 05:00 92.1 101 18 135/74 (94) 100 05/06/17 04:23 100 80 05/06/17 04:00 92.1 109 18 138/86 (103) 100 05/06/17 04:00 80 05/06/17 04:00 109 05/06/17 03:00 106 05/06/17 03:00 92.1 106 18 136/84 (101) 100 05/06/17 02:00 106 05/06/17 02:00 92.1 106 18 138/85 (102) 100 05/06/17 01:00 103 05/06/17 01:00 92.1 103 18 147/84 (105) 100 05/06/17 00:07 100 80 05/06/17 00:00 80 05/06/17 00:00 99 05/06/17 00:00 92.1 99 18 136/90 (105) 100 05/05/17 23:00 97 05/05/17 23:00 91.1 97 18 136/87 (103) 100 05/05/17 22:00 97 05/05/17 22:00 91.1 97 18 139/87 (104) 100 05/05/17 21:00 92.1 99 18 139/89 (106) 100 05/05/17 21:00 99 05/05/17 20:00 95 05/05/17 20:00 80 05/05/17 20:00 92.1 91 18 139/85 (103) 100 05/05/17 19:52 100 80 05/05/17 19:00 95 05/05/17 19:00 92.1 95 18 134/94 (107) 100 05/05/17 18:15 94 05/05/17 18:00 93 05/05/17 18:00 91.4 90 18 142/84 (103) 100 05/05/17 17:45 91 05/05/17 17:30 78 05/05/17 17:15 75 05/05/17 17:00 91.8 75 18 127/83 (98) 98 05/05/17 17:00 86 05/05/17 16:45 82 05/05/17 16:30 80 05/05/17 16:15 80 05/05/17 16:11 93 80 05/05/17 16:00 80 05/05/17 16:00 80 05/05/17 16:00 91.5 80 18 135/87 (103) 95 05/05/17 15:46 80 05/05/17 15:30 79 05/05/17 15:15 79 05/05/17 15:12 100 60 05/05/17 15:00 91.8 81 18 131/80 (97) 100 05/05/17 15:00 81 05/05/17 14:45 84 05/05/17 14:30 85 05/05/17 14:15 88 05/05/17 14:15 91.4 87 18 130/82 (98) 100 05/05/17 14:00 92 05/05/17 13:45 92.6 94 18 130/89 (103) 100 05/05/17 13:45 81 05/06/17 05/07/17 19:00 07:00 Intake Total 435 ml Output Total 368 ml Balance 67 ml Intake Oral 60 ml IV Total 375 ml Output Urine Total 368 ml Exam CONSTITUTIONAL/GENERAL: This is an obese patient, in no apparent distress on the mechanical ventilator. TUBES/LINES/DRAINS: Endotracheal tube, Palma, heat exchange catheter SKIN: No jaundice, rashes, or lesions. Ecchymoses on upper extremities. No wounds seen anteriorly. Skin temperature cool. Not diaphoretic. HEAD: Atraumatic. Normocephalic. EYES: Pupils equal and round at about 3 mm, but I see no reaction to light. No scleral icterus. No injection or drainage. Fundi not examined. ENT: Nose without bleeding or purulent drainage. NECK: Trachea midline. Supple, nontender. No palpable thyroid enlargement or nodularity. CARDIOVASCULAR: Regular rate and rhythm without murmurs, gallops, or rubs. No JVD. Peripheral pulses symmetric. RESPIRATORY/CHEST: Symmetric, unlabored respirations on the ventilator. Diminished breath sounds, scattered rhonchi GASTROINTESTINAL: Abdomen soft, obese, nondistended. No hepato-splenomegaly, or palpable masses. No guarding. Bowel sounds present. GENITOURINARY: Without palpable bladder distension. Palma catheter in place. MUSCULOSKELETAL: Extremities without clubbing, cyanosis, or edema. No joint tenderness or effusion noted. No mottling or clubbing. LYMPHATICS: No palpable cervical or supraclavicular adenopathy. NEUROLOGICAL: Unresponsive PSYCHIATRIC: Unable to evaluate due to clinical condition . Diagnostic Tests Laboratory Laboratory Tests Test 05/05/17 07:00 05/05/17 07:15 05/05/17 08:40 05/05/17 10:35 White Blood Count 14.4 TH/MM3 (4.0-11.0) Red Blood Count 4.86 MIL/MM3 (4.00-5.30) Hemoglobin 15.8 GM/DL (11.6-15.3) Hematocrit 48.3 % (35.0-46.0) Mean Corpuscular Volume 99.5 FL (80.0-100.0) Mean Corpuscular Hemoglobin 32.5 PG (27.0-34.0) Mean Corpuscular Hemoglobin Concent 32.6 % (32.0-36.0) Red Cell Distribution Width 14.6 % (11.6-17.2) Platelet Count 183 TH/MM3 (150-450) Mean Platelet Volume 10.2 FL (7.0-11.0) Neutrophils (%) (Auto) 41.9 % (16.0-70.0) Lymphocytes (%) (Auto) 52.3 % (9.0-44.0) Monocytes (%) (Auto) 4.5 % (0.0-8.0) Eosinophils (%) (Auto) 0.7 % (0.0-4.0) Basophils (%) (Auto) 0.6 % (0.0-2.0) Neutrophils # (Auto) 6.0 TH/MM3 (1.8-7.7) Lymphocytes # (Auto) 7.5 TH/MM3 (1.0-4.8) Monocytes # (Auto) 0.7 TH/MM3 (0-0.9) Eosinophils # (Auto) 0.1 TH/MM3 (0-0.4) Basophils # (Auto) 0.1 TH/MM3 (0-0.2) CBC Comment AUTO DIFF Differential Total Cells Counted 100 Neutrophils % (Manual) 34 % (16-70) Band Neutrophils % 3 % (0-6) Lymphocytes % 49 % (9-44) Monocytes % 11 % (0-8) Eosinophils % 1 % (0-4) Neutrophils # (Manual) 5.6 TH/MM3 (1.8-7.7) Metamyelocytes 1 % (0-1) Myelocytes 1 % (0-0) Differential Comment FINAL DIFF MANUAL Red Cell Morphology Comment NORMAL (NORMAL) Prothrombin Time 10.8 SEC (9.8-11.6) Prothromb Time International Ratio 1.0 RATIO Activated Partial Thromboplast Time 27.3 SEC (24.3-30.1) Urine Color LIGHT-YELLOW (YELLW/STRAW) Urine Turbidity CLEAR (CLEAR) Urine pH 6.5 (5.0-8.5) Urine Specific [place] 1.007 (1.002-1.035) Urine Protein TRACE mg/dL (NEG-TRACE) Urine Glucose (UA) NEG mg/dL (NEG) Urine Ketones NEG mg/dL (NEG) Urine Occult Blood SMALL (NEG) Urine Nitrite NEG (NEG) Urine Bilirubin NEG (NEG) Urine Urobilinogen LESS THAN 2.0 MG/DL (LESS Urine Leukocyte Esterase NEG (NEG) Urine RBC 4 /hpf (0-3) Urine WBC 1 /hpf (0-5) Microscopic Urinalysis Comment CULT NOT INDICATED Blood Urea Nitrogen 21 MG/DL (7-18) Creatinine 1.21 MG/DL (0.50-1.00) Random Glucose 194 MG/DL (74-106) Total Protein 7.3 GM/DL (6.4-8.2) Albumin 3.4 GM/DL (3.4-5.0) Calcium Level 8.6 MG/DL (8.5-10.1) Magnesium Level 2.7 MG/DL (1.5-2.5) Alkaline Phosphatase 151 U/L (45-117) Aspartate Amino Transf (AST/SGOT) 245 U/L (15-37) Alanine Aminotransferase (ALT/SGPT) 177 U/L (10-53) Total Bilirubin 0.3 MG/DL (0.2-1.0) Sodium Level 143 MEQ/L (136-145) Potassium Level 4.1 MEQ/L (3.5-5.1) Chloride Level 104 MEQ/L (98-107) Carbon Dioxide Level 22.2 MEQ/L (21.0-32.0) Anion Gap 17 MEQ/L (5-15) Estimat Glomerular Filtration Rate 45 ML/MIN (>89) Lactic Acid Level 11.4 mmol/L (0.4-2.0) 3.1 mmol/L (0.4-2.0) Total Creatine Kinase 138 U/L (26-192) Creatine Kinase MB 1.6 NG/ML (0.5-3.6) Troponin I 0.03 NG/ML (0.02-0.05) B-Type Natriuretic Peptide 342 PG/ML (0-100) Lipase 168 U/L (73-393) Thyroid Stimulating Hormone 3rd Gen 4.890 uIU/ML (0.358-3.740) Salicylates Level 6.8 MG/DL (2.8-20.0) Urine Opiates Screen NEG (NEG) Acetaminophen Level LESS THAN 2.0 MCG/ML Urine Barbiturates Screen NEG (NEG) Valproic Acid (Depakene) Level LESS THAN 3 MCG/ML Urine Amphetamines Screen NEG (NEG) Urine Benzodiazepines Screen NEG (NEG) Urine Cocaine Screen NEG (NEG) Urine Cannabinoids Screen POS (NEG) Ethyl Alcohol Level LESS THAN 3 MG/DL (0-5) Blood Gas Puncture Site RT RADIAL RT RADIAL Blood Gas Patient Temperature 98.6 98.6 Blood Gas HCO3 21 mmol/L (22-26) 20 mmol/L (22-26) Blood Gas Base Excess -6.8 mmol/L (-2-2) -5.9 mmol/L (-2-2) Blood Gas Oxygen Saturation 91 % (90-100) 97 % (90-100) Arterial Blood pH 7.14 (7.380-7.420) 7.30 (7.380-7.420) Arterial Blood Partial Pressure CO2 64 mmHg (38-42) 41 mmHg (38-42) Arterial Blood Partial Pressure O2 103 mmHg (61-120) 461 mmHg (61-120) Arterial Blood Oxygen Content 19.7 Vol % (12.0-20.0) 22.0 Vol % (12.0-20.0) Arterial Blood Carboxyhemoglobin 4.5 % (0-4) 1.4 % (0-4) Arterial Blood Methemoglobin 0.7 % (0-2) 1.2 % (0-2) Blood Gas Hemoglobin 15.4 G/DL (12.0-16.0) 15.3 G/DL (12.0-16.0) Oxygen Delivery Device VENTILATOR VENTILATOR Blood Gas Ventilator Setting PRVC/AC Blood Gas Inspired Oxygen 100 % 100 % Ammonia 31 MCMOL/L (11-32) Test 05/05/17 11:00 05/05/17 12:10 05/05/17 15:08 05/05/17 20:20 Nasal Screen MRSA (PCR) MRSA NOT DETECTED (NOT Blood Urea Nitrogen 28 MG/DL (7-18) 28 MG/DL (7-18) 26 MG/DL (7-18) Creatinine 1.44 MG/DL (0.50-1.00) 1.31 MG/DL (0.50-1.00) 1.15 MG/DL (0.50-1.00) Random Glucose 247 MG/DL (74-106) 184 MG/DL (74-106) 140 MG/DL (74-106) Calcium Level 8.1 MG/DL (8.5-10.1) 8.4 MG/DL (8.5-10.1) 8.5 MG/DL (8.5-10.1) Phosphorus Level 4.8 MG/DL (2.5-4.9) Magnesium Level 2.4 MG/DL (1.5-2.5) 2.5 MG/DL (1.5-2.5) 2.3 MG/DL (1.5-2.5) Sodium Level 140 MEQ/L (136-145) 140 MEQ/L (136-145) 141 MEQ/L (136-145) Potassium Level 4.4 MEQ/L (3.5-5.1) 4.1 MEQ/L (3.5-5.1) 3.8 MEQ/L (3.5-5.1) Chloride Level 106 MEQ/L (98-107) 105 MEQ/L (98-107) 104 MEQ/L (98-107) Carbon Dioxide Level 25.9 MEQ/L (21.0-32.0) 29.7 MEQ/L (21.0-32.0) 27.1 MEQ/L (21.0-32.0) Anion Gap 8 MEQ/L (5-15) 5 MEQ/L (5-15) 10 MEQ/L (5-15) Estimat Glomerular Filtration Rate 37 ML/MIN (>89) 41 ML/MIN (>89) 48 ML/MIN (>89) Hepatitis A IgM Antibody NEGATIVE (NEGATIVE) Hepatitis B Surface Antigen NEGATIVE (NEGATIVE) Hepatitis B Core IgM Antibody NEGATIVE (NEGATIVE) Hepatitis C Antibody NEGATIVE (NEGATIVE) Troponin I 0.28 NG/ML (0.02-0.05) 0.24 NG/ML (0.02-0.05) Free Thyroxine 1.18 NG/DL (0.76-1.46) Free Triiodothyronine (T3) pg/dL 2.54 PG/ML (2.18-3.98) Test 05/06/17 05:14 05/06/17 05:15 Lactic Acid Level 2.6 mmol/L (0.4-2.0) Ammonia LESS THAN 10 MCMOL/L White Blood Count 23.4 TH/MM3 (4.0-11.0) Red Blood Count 5.51 MIL/MM3 (4.00-5.30) Hemoglobin 18.0 GM/DL (11.6-15.3) Hematocrit 53.4 % (35.0-46.0) Mean Corpuscular Volume 97.0 FL (80.0-100.0) Mean Corpuscular Hemoglobin 32.8 PG (27.0-34.0) Mean Corpuscular Hemoglobin Concent 33.8 % (32.0-36.0) Red Cell Distribution Width 14.1 % (11.6-17.2) Platelet Count 162 TH/MM3 (150-450) Mean Platelet Volume 9.8 FL (7.0-11.0) Neutrophils (%) (Auto) 88.3 % (16.0-70.0) Lymphocytes (%) (Auto) 6.0 % (9.0-44.0) Monocytes (%) (Auto) 5.5 % (0.0-8.0) Eosinophils (%) (Auto) 0.1 % (0.0-4.0) Basophils (%) (Auto) 0.1 % (0.0-2.0) Neutrophils # (Auto) 20.7 TH/MM3 (1.8-7.7) Lymphocytes # (Auto) 1.4 TH/MM3 (1.0-4.8) Monocytes # (Auto) 1.3 TH/MM3 (0-0.9) Eosinophils # (Auto) 0.0 TH/MM3 (0-0.4) Basophils # (Auto) 0.0 TH/MM3 (0-0.2) CBC Comment DIFF FINAL Differential Comment Prothrombin Time 12.2 SEC (9.8-11.6) Prothromb Time International Ratio 1.1 RATIO Activated Partial Thromboplast Time 28.7 SEC (24.3-30.1) Fibrinogen 445 mg/dL (227-377) Blood Urea Nitrogen 27 MG/DL (7-18) Creatinine 0.93 MG/DL (0.50-1.00) Random Glucose 126 MG/DL (74-106) Total Protein 7.2 GM/DL (6.4-8.2) Albumin 3.1 GM/DL (3.4-5.0) Calcium Level 8.0 MG/DL (8.5-10.1) Phosphorus Level 3.5 MG/DL (2.5-4.9) Magnesium Level 2.0 MG/DL (1.5-2.5) Alkaline Phosphatase 139 U/L (45-117) Aspartate Amino Transf (AST/SGOT) 148 U/L (15-37) Alanine Aminotransferase (ALT/SGPT) 197 U/L (10-53) Total Bilirubin 0.7 MG/DL (0.2-1.0) Sodium Level 140 MEQ/L (136-145) Potassium Level 3.7 MEQ/L (3.5-5.1) Chloride Level 105 MEQ/L (98-107) Carbon Dioxide Level 23.1 MEQ/L (21.0-32.0) Anion Gap 12 MEQ/L (5-15) Estimat Glomerular Filtration Rate 61 ML/MIN (>89) Troponin I 0.19 NG/ML (0.02-0.05) Amylase Level 27 U/L (25-115) Result Diagram: 05/06/1715 05/06/1715 Microbiology Microbiology Date/Time Source Procedure Growth Status 05/05/17 07:00 Blood Peripheral Aerobic Blood Culture - Preliminary NO GROWTH IN 1 DAY Resulted 05/05/17 07:00 Blood Peripheral Anaerobic Blood Culture - Preliminary NO GROWTH IN 1 DAY Resulted 05/05/17 06:55 Blood Peripheral Aerobic Blood Culture - Preliminary NO GROWTH IN 1 DAY Resulted 05/05/17 06:55 Blood Peripheral Anaerobic Blood Culture - Preliminary NO GROWTH IN 1 DAY Resulted 05/05/17 13:55 Nasal Aspirate Influenza Types A,B Antigen (PRATIK) - Final NEGATIVE FOR FLU A AND B ANTIGEN.... Complete 05/05/17 08:40 Sputum Endotracheal Gram Stain - Final Resulted 05/05/17 08:40 Sputum Endotracheal Sputum Culture - Preliminary Resulted 05/05/17 07:00 Urine Catheterized Urine Legionella Antigen - Final PRESUMPTIVE NEGATIVE FOR LEGIONELLA P... Complete 05/05/17 07:00 Urine Catheterized Urine Streptococcus pneumoniae Antigen (M - Final PRESUMPTIVE NEGATIVE FOR STREPTOCOCCU... Complete Imaging Last Impressions Chest X-Ray 05/05/17 0648 Signed Impressions: Service Date/Time: Friday, May 05, 2017 07:12 - CONCLUSION: 1. Endotracheal and nasogastric tubes are in good position. 2. Cardiomegaly with vascular congestion but no evidence of pulmonary edema consolidating airspace disease. 3. AICD. Mikael Hinton MD Liver Ultrasound 05/05/17 0000 Signed Impressions: Service Date/Time: Friday, May 05, 2017 14:28 - CONCLUSION: 1. No findings to indicate biliary obstruction. 2. Slight thickening of the gallbladder wall with trace amount of pericholecystic fluid. No stones are seen within the gallbladder. 3. Mild increased echogenicity of the right renal cortex suggesting underlying medical renal disease. 4. Renal stone and small renal cyst as above. Carlos Roman MD Head CT 05/05/17 0000 Signed Impressions: Service Date/Time: Friday, May 05, 2017 07:54 - CONCLUSION: No acute disease. Study is motion degraded. Yony Ahmadi Jr., MD CT Angiography 05/05/17 0000 Signed Impressions: Service Date/Time: Friday, May 05, 2017 07:58 - CONCLUSION: 1. Patchy airspace disease predominantly in the right upper lobe posteriorly and the left base. Findings could represent pneumonic infiltrates. 2. There is also dependent atelectatic changes in both hemithoraces, slightly more prominent on the right. 3. No pulmonary embolus or effusion. Saran Perdomo MD Procedures INTUBATION 05/05/17 Cold cooling 05/05 - 05/06/17 . Patient/Family Conference Present at Family Conference: Pt's sister Karla and S. Alicia SPECIAL EDUCATION DIRECTOR . Family Conference Time (mins): 46 Family Conference Location: Consult Room Issues Discussed: * Palliative care role, purpose, approach * Additional medical, psychosocial, and spiritual history * Patients general health, functional status, and cognitive changes in the months leading up to the current hospitalization * Patient/family understanding of the current medical problems * Patient/family understanding of prognosis * Patients goals of care as best understood from advance directives and/or conversations and/or values * Current medical treatment options and benefits/burdens of those options * Likely scenarios comparing ongoing aggressive care with a transition to comfort measures only * Questions answered to the best of my ability * Palliative care contact information provided The patient's sister Karla reports that the patient has on numerous occasions told the rest of the family that she would not want to be kept alive artificially if she would not have essentially a complete recovery, as she would never want to be in a [place] health care facility or dependent on others for 13/01 care. Karla also says that she does "not believe in prolonging the dying process 1 minute longer than is necessary." She does want to see what happens over these next couple days after rewarming the patient, and she notes that she is "hoping for certainty and clarity." . 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 Spiritual: The patient's sister reports that the patient has "eclectic believes , "and they change at times. The patient's sister Karla is a cloth washer operator and is ministering to the patient on a regular basis. Legal: The patient lacks capacity for decision-making and she will not regain that capacity. Her sister Karla and brother Saturnino are her proxy decision makers. Ethical issues impacting care: None . Code Status: Alternative Code (intubation only) Plan * ALTERNATE CODE, intubation only * DECISION-MAKING: The patient lacks capacity for decision-making and she will not regain that capacity. Her sister Karla and brother Saturnino are her proxy decision makers. * GOALS: The patient's sister Karla reports that the patient has on numerous occasions told the rest of the family that she would not want to be kept alive artificially if she would not have essentially a complete recovery, as she would never want to be in a [place] [facility] care facility or dependent on others for / care. Karla also says that she does "not believe in prolonging the dying process 1 minute longer than is necessary." She does want to see what happens over these next couple days after rewarming the patient, and she notes that she is "hoping for certainty and clarity." It is likely that the patient's sister and brother will want to withdraw life support to allow natural if there is not marked improvement (neurologically) in the upcoming couple days. * SYMPTOMS: The patient does have underlying chronic musculoskeletal pain and had been taking opiates daily the past few years, but shows no signs of obvious pain now. The encephalopathy appears to be quite profound. No further medication recommendations at this time. * We have a tentative plan to meet with the patient's sister and brother again on afternoon. * Palliative Care will continue to follow the patient during this hospitalization. . Time Spent Total Floor Time (mins): 81 Face to Face Time (mins): 20 >50% Counseling/Coord of Care: Yes (d/w Dr. Espinal and with RN) Thank you for the opportunity to participate in the care of Ms. Posada. Attestation To help prompt me to consider important information that might be impacting today's encounter and assessment, information from prior notes written by myself or my colleagues may have been "brought forward" into today's note. My signature on this note, however, is an attestation that I personally performed the exam, history, and/or decision-making noted today, and, unless otherwise indicated, the interactions with patient, family, and staff as well as the review of records all occurred today. I also attest that the listed assessment and stated plan reflect my best clinical judgment today based on the combination of historical information, prior notes, and today's exam/ interactions. When time spent is documented, it refers only to time spent today by the signer, or if indicated, combined time spent today by collaborating physician/nurse practitioner. Karolyn Clarke MD May 06, 2017 14:16
[2017-05-06] MEDS: CISATRACURIUM INJ 100 MG in SODIUM CHLOR 0.9% 250 ML INJ 240 ML IV PRN (16:32)
[2017-05-06 17:03] LABS: BICARBONATE 23.9 MEQ/L (21.0-32.0); POTASSIUM 3.1 MEQ/L (3.5-5.1)
[2017-05-06] MEDS: SODIUM CHLOR 0.9% 1000 ML INJ 1,000 ML IV SCH (18:23)
[2017-05-07] VITALS (39 sets, daily range): BP systolic 82–111; BP diastolic 50–65; PULSE 76–98; RESP 18–45; TEMP 96.1–97.9; O2SAT 92–100
[2017-05-07] MEDS: INSULIN ASPART SUPPLEMENTAL SCALE SQ SCH ×6 (01:00→21:00)
[2017-05-07] MEDS: PROPOFOL 1000 MG/100 ML INJ 100 ML IV PRN ×5 (02:22→20:38)
[2017-05-07] MEDS: RESP: ALBUTEROL 2.5 MG/IPRATROPIUM 0.5 MG NEB (SCH) NEB ×5 (03:41→20:19)
[2017-05-07] MEDS: CHLORHEXIDINE GLUCONATE 2 % 1 PACK (2 CLOTHS) TOP SCH (03:49)
[2017-05-07 04:16] LABS: AUTOMATED NEUTROPHIL # 26.8 TH/MM3 (1.8-7.7); BASOPHIL % 0.1 % (0.0-2.0); EOSINOPHIL % 0.1 % (0.0-4.0); HEMATOCRIT 51.7 % (35.0-46.0); HEMO FLAGS DIFF FINAL; LYMPH % 3.8 % (9.0-44.0); LYMPHOCYTE # 1.1 TH/MM3 (1.0-4.8); MEAN CELL VOLUME 96.3 FL (80.0-100.0); MEAN CORPUSCULAR HEMOGLOBIN 31.7 PG (27.0-34.0); MEAN CORPUSCULAR HGB CONC 32.9 % (32.0-36.0); MONO % 4.9 % (0.0-8.0); NEUT % 91.1 % (16.0-70.0); PLATELET COUNT 179 TH/MM3 (150-450); RED BLOOD COUNT 5.37 MIL/MM3 (4.00-5.30); RED CELL DISTRIBUTION WIDTH 14.4 % (11.6-17.2); WHITE BLOOD COUNT 29.4 TH/MM3 (4.0-11.0)
[2017-05-07 04:28] LABS: ALT (GPT) 145 U/L (10-53); ANION GAP 13 MEQ/L (5-15); AST (GOT) 88 U/L (15-37); BICARBONATE 24.4 MEQ/L (21.0-32.0); BLOOD UREA NITROGEN 35 MG/DL (7-18); CHLORIDE 106 MEQ/L (98-107); GLOMERULAR FILTRATION RATE 53 ML/MIN (>89); POTASSIUM 3.4 MEQ/L (3.5-5.1); SODIUM (NA) 143 MEQ/L (136-145)
[2017-05-07 04:31] LABS: ALKALINE PHOSPHATASE 115 U/L (45-117); TOTAL BILIRUBIN ADULT 0.5 MG/DL (0.2-1.0)
[2017-05-07] MEDS ORDERED: FOSPHENYTOIN INJ 1,000 MGPE in SODIUM CHLORIDE 0.9% INJ 50 ML IV ONE (04:45)
[2017-05-07] MEDS ORDERED: CISATRACURIUM BESYLATE 20 MG/10 ML VIAL IV PUSH ONE (04:45)
[2017-05-07] MEDS: CISATRACURIUM INJ 100 MG in SODIUM CHLOR 0.9% 250 ML INJ 240 ML IV PRN (04:45)
[2017-05-07] MEDS ORDERED: POTASSIUM CHLORIDE INJ 30 MEQ in SODIUM CHLORIDE 0.9% INJ 100 ML IV-CENTRAL ONE (04:45)
[2017-05-07] MEDS: NOREPINEPHRINE INJ 4 MG in SODIUM CHLOR 0.9% 250 ML INJ 246 ML IV PRN ×3 (04:47→22:46)
[2017-05-07] MEDS: ARTIFICIAL TEARS OPTH OINT 3.5 APPLIC/3.5 GM TUBO EACH EYE SCH ×3 (05:09→22:00)
[2017-05-07 05:28] LABS: MAGNESIUM 1.9 MG/DL (1.5-2.5)
[2017-05-07] MEDS: SENNOSIDES SYRUP 8.8 MG/5 ML CUP PO SCH ×2 (08:02→20:16)
[2017-05-07] MEDS: levETIRAcetam INJ 500 MG in SODIUM CHLORIDE 0.9% INJ 100 ML IV SCH (08:02)
[2017-05-07] MEDS: LANSOPRAZOLE SOLUTAB 30 MG TAB NG SCH (08:02)
[2017-05-07] MEDS: DOCUSATE SODIUM 100 MG/10 ML UDC PO SCH ×2 (08:02→20:16)
[2017-05-07] MEDS: SODIUM CHLORIDE 0.9% FLUSH 10 ML FLUSH IV FLUSH PRN ×2 (08:02→16:48)
[2017-05-07] MEDS: ASPIRIN 81 MG CHEW TAB OG-TUBE SCH (08:02)
[2017-05-07] MEDS: SODIUM CHLORIDE 0.9% FLUSH 10 ML FLUSH IV FLUSH SCH ×2 (08:02→20:16)
[2017-05-07] MEDS: AZITHROMYCIN INJ 500 MG in SODIUM CHLOR 0.9% 250 ML INJ 250 ML IV SCH (08:02)
[2017-05-07] MEDS: CHLORHEXIDINE 0.12% (ORAL KIT) 15 ML CUP MT SCH ×2 (08:03→20:17)
--- NOTE | 2017-05-07 09:28 | HHI.PR ---
Review/Management Diagnosis/Plan: (1) Anoxic encephalopathy ICD Codes: G93.1 - Anoxic brain damage, not elsewhere classified Status: Acute Plan: limited exam 2/2 sedation/paralytics asymmetric pupils eeg- burst suppression 05/05 ct brain naicp recs f/u repeat eeg. however, myoclonus appears post-hypoxic non-epileptic continue iv keppra can re-eval 72 hrs after code cool dc'd/early next week mri brain when medically feasible d/w rn/ccm overall prognosis does appear good based on pea arrest and multiple medical co- morbidities (2) PEA (Pulseless electrical activity) ICD Codes: I46.9 - Cardiac arrest, cause unspecified Status: Acute (3) Acute respiratory failure with hypoxia and hypercapnia ICD Codes: J96.01 - Acute respiratory failure with hypoxia; J96.02 - Acute respiratory failure with hypercapnia Status: Acute Subjective Subjective Comments myoclonus off nimbex last night Active Medications Current Medications Medications (Trade) Dose Ordered Sig/Janine Route Start Time Stop Time Status Last Admin (NS Flush) 2 ml UNSCH PRN IV FLUSH 05/05/17 07:45 05/07/17 08:02 (NS Flush) 2 ml BID IV FLUSH 05/05/17 09:00 05/07/17 08:02 (Zofran Inj) 4 mg Q6H PRN IV PUSH 05/05/17 07:45 (Albuterol Neb) 2.5 mg Q2HR NEB PRN INH 05/05/17 07:45 Miscellaneous Information 1 Q361D XX 05/05/17 07:45 05/05/17 07:45 (Chlorhexidine 2% Cloth) 3 pack Taper DAILY@04 TOP 05/06/17 04:00 05/02/18 03:59 05/06/17 03:59 (Chlorhexidine 2% Cloth) 3 pack UNSCH PRN TOP 05/05/17 07:45 (Milk Of Magnesia Liq) 30 ml Q12H PRN PO 05/05/17 07:45 (Senokot) 17.2 mg Q12H PRN PO 05/05/17 07:45 (Lactulose Liq) 30 ml DAILY PRN PO 05/05/17 07:45 Propofol 100 ml @ 2.25 mls/hr TITRATE PRN IV 05/05/17 08:00 05/07/17 06:18 (Duoneb Neb) 1 ampule Q4HR NEB NEB 05/05/17 08:00 05/07/17 08:34 Fentanyl Citrate 250 ml @ 5 mls/hr TITRATE PRN IV 05/05/17 08:15 (D50w (Vial) Inj) 50 ml UNSCH PRN IV PUSH 05/05/17 08:45 (Glucagon Inj) 1 mg UNSCH PRN OTHER 05/05/17 08:45 (NovoLOG SUPPLEMENTAL SCALE) 1 Q4H SQ 05/05/17 09:00 05/07/17 08:16 (Aspirin Chew) 81 mg DAILY OG-TUBE 05/06/17 09:00 05/07/17 08:02 Azithromycin 500 mg/Sodium Chloride 250 ml @ 250 mls/hr Q24H IV 05/06/17 09:00 05/07/17 08:02 Cefepime HCl 2000 mg/Sodium Chloride 100 ml @ 200 mls/hr Q12H IV 05/06/17 00:00 05/06/17 23:53 (Peridex 0.12% Liq) 15 ml BID@08,20 MT 05/05/17 20:00 05/07/17 08:03 Midazolam HCl 100 ml @ 2 mls/hr TITRATE PRN IV 05/05/17 11:00 Cisatracurium Besylate 100 mg/ Sodium Chloride 250 ml @ 37.12 mls/ hr TITRATE PRN IV 05/05/17 12:00 05/07/17 04:45 Miscellaneous Information 0 ml @ 0 mls/hr UNSCH IV 05/05/17 10:45 Norepinephrine Bitartrate 4 mg/ Sodium Chloride 250 ml @ 7.5 mls/hr TITRATE PRN IV 05/05/17 10:45 05/07/17 04:47 (Heparin Inj) 5,000 units Q12H SQ 05/05/17 11:00 05/06/17 22:33 (Lacrilube Opht Oint) 1 applic Q8HR EACH EYE 05/06/17 01:45 05/07/17 05:09 (Colace Liq) 100 mg Q12HR PO 05/06/17 09:00 05/07/17 08:02 (Senna Liq) 8.8 mg Q12HR PO 05/06/17 09:00 05/07/17 08:02 (Prevacid Odt) 30 mg DAILY NG 05/06/17 09:00 05/07/17 08:02 Levetriacetam 500 mg/Sodium Chloride 105 ml @ 420 mls/hr Q12HR IV 05/06/17 09:00 05/07/17 08:02 Sodium Chloride 1,000 ml @ 50 mls/hr Q20H IV 05/06/17 18:00 05/06/17 18:23 Allergies Allergies Coded Allergies amoxicillin (Unverified Allergy, Severe, NAUSEA, 05/05/17) clavulanic acid (Unverified Allergy, Severe, NAUSEA, 05/05/17) codeine (Unverified Allergy, Severe, headache, 05/05/17) metformin (Unverified Allergy, Severe, NAUSEA, 05/05/17) morphine (Unverified Allergy, Severe, ITCHING, 05/05/17) Review of Systems All other ROS: Unable to obtain Exam I&O / VS 05/07/17 05/07/17 05/08/17 15:00 23:00 07:00 Intake Total 100 ml Output Total 43 ml Balance 57 ml IV Total 100 ml Output Urine Total 43 ml Vital Signs Date Time Temp Pulse Resp B/P (MAP) Pulse Ox O2 Delivery O2 Flow Rate FiO2 05/07/17 09:00 97.9 97 18 89/52 (64) 96 05/07/17 08:35 95 50 05/07/17 08:00 93 05/07/17 08:00 50 05/07/17 08:00 97.9 93 18 103/56 (72) 95 05/07/17 07:00 98 05/07/17 07:00 97.7 98 18 104/56 (72) 94 05/07/17 06:45 99 113/59 05/07/17 06:31 99 112/57 05/07/17 06:00 92 05/07/17 06:00 97.5 92 18 111/56 (74) 94 05/07/17 06:00 92 111/56 05/07/17 05:00 97.9 93 18 107/58 (74) 92 05/07/17 05:00 93 05/07/17 04:54 96 106/61 05/07/17 04:51 101 132/72 05/07/17 04:48 96 50/29 05/07/17 04:47 96 37/21 05/07/17 04:00 96 05/07/17 04:00 97.0 96 18 111/65 (80) 95 05/07/17 04:00 50 05/07/17 03:39 94 50 05/07/17 03:00 97 05/07/17 03:00 96.8 97 18 97/63 (74) 94 05/07/17 02:00 96.3 97 18 101/61 (74) 94 05/07/17 02:00 97 05/07/17 01:00 96.1 96 18 109/62 (78) 94 05/07/17 01:00 96 05/07/17 00:00 50 05/07/17 00:00 85 05/07/17 00:00 96.1 85 18 94/54 (67) 94 05/06/17 23:40 95 50 05/06/17 23:00 96.1 89 18 99/58 (72) 94 05/06/17 23:00 89 05/06/17 22:00 93 05/06/17 22:00 96.1 93 18 108/72 (84) 95 05/06/17 21:00 92 05/06/17 21:00 96.3 92 18 110/55 (73) 92 05/06/17 20:02 93 50 05/06/17 20:00 100 05/06/17 20:00 50 05/06/17 20:00 96.3 100 18 119/62 (81) 92 05/06/17 19:00 104 05/06/17 19:00 95.9 104 18 119/68 (85) 94 05/06/17 18:00 101 05/06/17 18:00 94.8 101 18 124/61 (82) 96 05/06/17 17:00 94.1 103 18 119/74 (89) 96 05/06/17 17:00 103 05/06/17 16:42 96 50 05/06/17 16:00 93.2 101 18 127/89 (102) 95 05/06/17 16:00 50 05/06/17 16:00 101 05/06/17 15:00 101 05/06/17 15:00 92.3 101 18 122/71 (88) 96 05/06/17 14:00 97 05/06/17 14:00 91.6 97 18 125/70 (88) 97 05/06/17 13:00 93 05/06/17 13:00 91.6 93 18 124/74 (91) 97 05/06/17 12:00 50 05/06/17 12:00 91.9 100 18 127/76 (93) 97 05/06/17 12:00 100 05/06/17 11:28 96 80 05/06/17 11:00 91.9 100 18 120/72 (88) 96 05/06/17 11:00 100 05/06/17 10:00 101 05/06/17 10:00 91.2 101 18 107/64 (78) 98 Exam Comments coma state. non-verbal, not following, od 5mm os 2mm nr, no corneals, no grimace, no involuntary movements, no withdrawal to tactile Objective Micro and Labs Laboratory Tests Test 05/06/17 16:05 05/07/17 03:30 05/07/17 05:00 05/07/17 05:20 Blood Urea Nitrogen 26 35 Creatinine 0.61 1.06 Random Glucose 127 139 Calcium Level 8.5 8.7 Magnesium Level 2.0 1.9 Sodium Level 140 143 Potassium Level 3.1 3.4 Chloride Level 106 106 Carbon Dioxide Level 23.9 24.4 Anion Gap 10 13 Estimat Glomerular Filtration Rate 100 53 White Blood Count 29.4 Red Blood Count 5.37 Hemoglobin 17.0 Hematocrit 51.7 Mean Corpuscular Volume 96.3 Mean Corpuscular Hemoglobin 31.7 Mean Corpuscular Hemoglobin Concent 32.9 Red Cell Distribution Width 14.4 Platelet Count 179 Mean Platelet Volume 10.5 Neutrophils (%) (Auto) 91.1 Lymphocytes (%) (Auto) 3.8 Monocytes (%) (Auto) 4.9 Eosinophils (%) (Auto) 0.1 Basophils (%) (Auto) 0.1 Neutrophils # (Auto) 26.8 Lymphocytes # (Auto) 1.1 Monocytes # (Auto) 1.4 Eosinophils # (Auto) 0.0 Basophils # (Auto) 0.0 CBC Comment DIFF FINAL Differential Comment Total Protein 6.5 Albumin 2.7 Alkaline Phosphatase 115 Aspartate Amino Transf (AST/SGOT) 88 Alanine Aminotransferase (ALT/SGPT) 145 Total Bilirubin 0.5 Phosphorus Level 5.3 Amylase Level 18 Lipase 63 Fibrinogen 593 Lactic Acid Level 2.2 Date/Time Source Procedure Growth Status 05/05/17 07:00 Blood Peripheral Aerobic Blood Culture - Preliminary NO GROWTH IN 1 DAY Resulted 05/05/17 07:00 Blood Peripheral Anaerobic Blood Culture - Preliminary NO GROWTH IN 1 DAY Resulted 05/05/17 13:55 Nasal Aspirate Influenza Types A,B Antigen (PRATIK) - Final NEGATIVE FOR FLU A AND B ANTIGEN.... Complete 05/05/17 07:00 Urine Catheterized Urine Legionella Antigen - Final PRESUMPTIVE NEGATIVE FOR LEGIONELLA P... Complete 05/05/17 07:00 Urine Catheterized Urine Streptococcus pneumoniae Antigen (M - Final PRESUMPTIVE NEGATIVE FOR STREPTOCOCCU... Complete Stewart Wallace MD May 07, 2017 09:28
[2017-05-07] MEDS: LORazepam 2 MG/ML VIAL IV PUSH PRN ×2 (10:38→16:48)
[2017-05-07] MEDS: HEPARIN SODIUM - SQ 10,000 UNITS/ML VIAL SQ SCH ×2 (11:02→22:54)
[2017-05-07] MEDS: CEFEPIME INJ 2,000 MG in SODIUM CHLORIDE 0.9% INJ 100 ML IV SCH (11:02)
--- NOTE | 2017-05-07 12:27 | HHI.CCPN ---
Subjective Remarks/Hospital Course 05/05: 62 yo female with PMH of DM, HTN, HLD, nonischemic cardiomyopathy EF 20% with ICD, CK D stage III, peripheral neuropathy, depression/anxiety, obesity, COPD, tobacco abuse who presents to [facility] emergency department following PEA arrest. She notified her brother that she was SOB and she then collapsed and her brother initiated bystander CPR. When [facility] arrived she was in PEA. She was given epinephrine 2 and bicarbonate 1. She was intubated at the scene. She had some twitching movements after arrival and it was unclear if this is related to seizure activity versus myoclonus. 05/06: Remains sedated, on neuromuscular blockade, orally intubated on mechanical ventilation. On therapeutic hypothermia protocol. 05/07: Remains encephalopathic. Had myoclonic jerks following rewarming and turning of neuromuscular blockade last night. Remains on propofol. EEG this morning with significant seizure activity. Objective Vital Signs Date Time Temp Pulse Resp B/P (MAP) Pulse Ox O2 Delivery O2 Flow Rate FiO2 05/07/17 12:00 78 05/07/17 12:00 50 05/07/17 12:00 97.4 21 88/54 (65) 97 05/05/17 09:27 Ventilator Intake and Output 05/07/17 05/07/17 05/08/17 08:00 16:00 00:00 Intake Total 1076 ml 450 ml Output Total 150 ml 72 ml Balance 926 ml 378 ml Result Diagram: 05/07/17 0330 05/07/17 0330 Other Results Microbiology Date/Time Source Procedure Growth Status 05/05/17 13:55 Nasal Aspirate Influenza Types A,B Antigen (PRATIK) - Final NEGATIVE FOR FLU A AND B ANTIGEN.... Complete 05/05/17 07:00 Urine Catheterized Urine Legionella Antigen - Final PRESUMPTIVE NEGATIVE FOR LEGIONELLA P... Complete 05/05/17 07:00 Urine Catheterized Urine Streptococcus pneumoniae Antigen (M - Final PRESUMPTIVE NEGATIVE FOR STREPTOCOCCU... Complete Imaging Last Impressions Chest X-Ray 05/05/17 0648 Signed Impressions: Service Date/Time: Friday, May 05, 2017 07:12 - CONCLUSION: 1. Endotracheal and nasogastric tubes are in good position. 2. Cardiomegaly with vascular congestion but no evidence of pulmonary edema consolidating airspace disease. 3. AICD. Mikael Hinton MD Liver Ultrasound 05/05/17 0000 Signed Impressions: Service Date/Time: Friday, May 05, 2017 14:28 - CONCLUSION: 1. No findings to indicate biliary obstruction. 2. Slight thickening of the gallbladder wall with trace amount of pericholecystic fluid. No stones are seen within the gallbladder. 3. Mild increased echogenicity of the right renal cortex suggesting underlying medical renal disease. 4. Renal stone and small renal cyst as above. Carlos Roman MD Head CT 05/05/17 0000 Signed Impressions: Service Date/Time: Friday, May 05, 2017 07:54 - CONCLUSION: No acute disease. Study is motion degraded. Yony Ahmadi Jr., MD CT Angiography 05/05/17 0000 Signed Impressions: Service Date/Time: Friday, May 05, 2017 07:58 - CONCLUSION: 1. Patchy airspace disease predominantly in the right upper lobe posteriorly and the left base. Findings could represent pneumonic infiltrates. 2. There is also dependent atelectatic changes in both hemithoraces, slightly more prominent on the right. 3. No pulmonary embolus or effusion. Saran Perdomo MD Objective Remarks GENERAL: Obese female who is orotracheally intubated. SKIN: Warm, diaphoretic. HEAD: Atraumatic. Normocephalic. EYES: Right pupil 6 mm and sluggishly reactive 4 mm. Left pupil 4 mm and reacts to 3 mm.. No scleral icterus. No injection or drainage. ENT: No nasal bleeding or discharge. Mucous membranes pink and moist. NECK: Trachea midline. Thick neck, no JVD appreciated. CARDIOVASCULAR: Regular rate and rhythm, sinus rhythm on monitor with rate in 80s. No murmurs rubs or gallops. RESPIRATORY: Decreased air movement bilaterally with coarse breath sounds bilaterally. No Rales. GASTROINTESTINAL: Abdomen obese, soft, without apparent tenderness or rebound. Bowel sounds present. OG tube in place to low intermittent suction with particulate nonbloody gastric output MUSCULOSKELETAL: Extremities without clubbing, cyanosis, or edema. There is muscular atrophy of bilateral lower extremities NEUROLOGICAL: Remains encephalopathic, sedated, orally intubated on mechanical ventilation. No response to Babinski. No withdrawal bilateral lower extremities. A/P Problem List: (1) Nonischemic cardiomyopathy ICD Code: I42.8 - Other cardiomyopathies Status: Chronic (2) PEA (Pulseless electrical activity) ICD Code: I46.9 - Cardiac arrest, cause unspecified Status: Acute (3) Acute respiratory failure with hypoxia and hypercapnia ICD Code: J96.01 - Acute respiratory failure with hypoxia; J96.02 - Acute respiratory failure with hypercapnia Status: Acute (4) Acute encephalopathy ICD Code: G93.40 - Encephalopathy, unspecified Status: Acute (5) Type II diabetes mellitus with complication ICD Code: E11.8 - Type 2 diabetes mellitus with unspecified complications Status: Chronic (6) HTN (hypertension) ICD Code: I10 - Essential (primary) hypertension Status: Chronic (7) HLD (hyperlipidemia) ICD Code: E78.5 - Hyperlipidemia, unspecified Status: Chronic (8) Obesity ICD Code: E66.9 - Obesity, unspecified Status: Chronic (9) CKD (chronic kidney disease) stage 3, GFR 30-59 ml/min ICD Code: N18.3 - Chronic kidney disease, stage 3 (moderate) Status: Chronic (10) LBBB (left bundle branch block) ICD Code: I44.7 - Left bundle-branch block, unspecified Status: Chronic (11) Anxiety ICD Code: F41.9 - Anxiety disorder, unspecified Status: Chronic (12) Depression ICD Code: F32.9 - Major depressive disorder, single episode, unspecified Status: Chronic (13) Marijuana abuse ICD Code: F12.10 - Cannabis abuse, uncomplicated (14) Tobacco abuse ICD Code: Z72.0 - Tobacco use Status: Chronic (15) ICD (implantable cardioverter-defibrillator) in place ICD Code: Z95.810 - Presence of automatic (implantable) cardiac defibrillator Status: Chronic (16) Transaminitis ICD Code: R74.0 - Nonspecific elevation of levels of transaminase and lactic acid dehydrogenase [LDH] Status: Acute (17) Peripheral neuropathy ICD Code: G62.9 - Polyneuropathy, unspecified Status: Chronic (18) Leukocytosis ICD Code: D72.829 - Elevated white blood cell count, unspecified Status: Acute Assessment and Plan NEURO: Possible anoxic encephalopathy Myoclonus versus seizure Depression Anxiety Peripheral neuropathy Insomnia CT brain- negative EEG with seizure activity Unable to obtain MRI due to ICD. Urine drug screen positive for marijuana. Depakote level <3 (previously on Depakote during prior visit, not active med) Propofol for sedation. Nimbex stopped. Versed bolus as needed Fentanyl for analgosedation-currently off. Neurology consulted for question of anoxic encephalopathy. EEG abnormal. Anticonvulsants per neurology RESP: Acute hypoxemic and hypercapnic respiratory failure Tobacco abuse COPD DuoNeb every 4 hours. Albuterol every 2 hours as needed. Ventilator bundle. CTA chest negative for PE CV: PEA cardiac arrest Hyperlipidemia Hypertension Nonischemic cardiomyopathy with ICD Lactic acidemia Obtain 2-D echo. Follow-up cardiac markers. Continue ASA. Hold statin due to elevated LFTs Hold Coreg as will be bradycardic with cooling Hold spironolactone/lasix GI: Obesity Transaminitis OG-tube to low intermittent wall suction. Obtain right upper quadrant ultrasound FEN/RENAL: Chronic kidney disease stage III Hypermagnesemia Insert Palma. Monitor intake and output. Monitor electrolytes. Replace as indicated. ID: Leukocytosis Acute community acquired pneumonia Follow up blood and sputum cultures. Check influenza screen, urine Legionella antigen, urine pneumococcal antigen, Continue the azithromycin/cefepime IV for empiric antibiotic coverage. HEME: Hgb elevated ENDO: Diabetes mellitus TSH elevated. Obtain free T3/T4 Monitor bedside glucose every 4 hours with low-dose insulin sliding scale as indicated. PROPH: SCD for DVT prophylaxis. Famotidine 20 mg IV every 12 hours for stress ulcer prophylaxis. ACCESS: PIV, cool guard cooling catheter Patient is status post PEA cardiac arrest with possible anoxic encephalopathy undergoing hypothermia protocol. She is at high risk for further decompensation and remains critically ill. Her brother, Saturnino Travis, states: she is not . Her boyfriend "has a brain injury and is not there all the time". She has no children. Her parents are . She has one sister and one brother who are living. Reportedly no living will. Consulted palliative care team to assist with deciding goals of therapy. Neurology consult requested for question of anoxic encephalopathy. Time spent on critical care excluding procedures 35 minutes Mian Espinal MD May 07, 2017 12:27
[2017-05-07] MEDS: MIDAZOLAM 100 MG/NS 100 ML DRIP Premix IV SCH (12:35)
[2017-05-07] MEDS: VALPROATE IV SCH ×4 (12:59→20:16)
[2017-05-07] MEDS: NS IV SCH ×4 (12:59→20:16)
[2017-05-07] MEDS: SODIUM CHLOR 0.9% 1000 ML INJ 1,000 ML IV SCH (14:42)
--- NOTE | 2017-05-07 15:12 | HHI.HCPN ---
Reason for visit a. To assist with evaluation and management of symptoms including: Dyspnea , encephalopathy b. To assist medical decision maker(s) with: better understanding of current medical conditions; weighing benefits/burdens of medical treatment options; making medical treatment decisions. . Subjective/Interval History INTERVAL NOTE: The patient remains unresponsive, afebrile. I witness facial and right foot myoclonic jerks while I am in the room. A new EEG is not officially reported out yet, but I am told that it shows fairly continuous seizure activity. Neurology has requested a midazolam infusion. . Family/friend interactions Discussed by telephone with patient's sister Karla again. She has arranged for her brother, nephew, and another family member to come with her for tomorrow 3 PM meeting. She feels fairly certain that they will want to proceed with withdrawal of life support unless there is a remarkable improvement before tomorrow afternoon. . Advance Directives Living Will: Never completed Health Care Surrogate: Never completed Durable Power of Stator Connector: Never completed Objective Vital Signs Date Time Temp Pulse Resp B/P (MAP) Pulse Ox O2 Delivery O2 Flow Rate FiO2 05/07/17 14:12 79 93/52 05/07/17 14:00 78 05/07/17 13:26 97 50 05/07/17 12:00 78 05/07/17 12:00 50 05/07/17 12:00 97.4 78 21 88/54 (65) 97 05/07/17 11:00 82 05/07/17 11:00 97.7 82 24 82/50 (61) 95 05/07/17 10:59 95 50 05/07/17 10:00 98.1 95 45 89/55 (66) 95 05/07/17 10:00 95 05/07/17 09:00 97 05/07/17 09:00 97.9 97 18 89/52 (64) 96 05/07/17 08:35 95 50 05/07/17 08:00 93 05/07/17 08:00 50 05/07/17 08:00 97.9 93 18 103/56 (72) 95 05/07/17 07:00 98 05/07/17 07:00 97.7 98 18 104/56 (72) 94 05/07/17 06:45 99 113/59 05/07/17 06:31 99 112/57 05/07/17 06:00 92 05/07/17 06:00 97.5 92 18 111/56 (74) 94 05/07/17 06:00 92 111/56 05/07/17 05:00 97.9 93 18 107/58 (74) 92 05/07/17 05:00 93 05/07/17 04:54 96 106/61 05/07/17 04:51 101 132/72 05/07/17 04:48 96 50/29 05/07/17 04:47 96 37/21 05/07/17 04:00 96 05/07/17 04:00 97.0 96 18 111/65 (80) 95 05/07/17 04:00 50 05/07/17 03:39 94 50 05/07/17 03:00 97 05/07/17 03:00 96.8 97 18 97/63 (74) 94 05/07/17 02:00 96.3 97 18 101/61 (74) 94 05/07/17 02:00 97 05/07/17 01:00 96.1 96 18 109/62 (78) 94 05/07/17 01:00 96 05/07/17 00:00 50 05/07/17 00:00 85 05/07/17 00:00 96.1 85 18 94/54 (67) 94 05/06/17 23:40 95 50 05/06/17 23:00 96.1 89 18 99/58 (72) 94 05/06/17 23:00 89 05/06/17 22:00 93 05/06/17 22:00 96.1 93 18 108/72 (84) 95 05/06/17 21:00 92 05/06/17 21:00 96.3 92 18 110/55 (73) 92 05/06/17 20:02 93 50 05/06/17 20:00 100 05/06/17 20:00 50 05/06/17 20:00 96.3 100 18 119/62 (81) 92 05/06/17 19:00 104 05/06/17 19:00 95.9 104 18 119/68 (85) 94 05/06/17 18:00 101 05/06/17 18:00 94.8 101 18 124/61 (82) 96 05/06/17 17:00 94.1 103 18 119/74 (89) 96 05/06/17 17:00 103 05/06/17 16:42 96 50 05/06/17 16:00 93.2 101 18 127/89 (102) 95 05/06/17 16:00 50 05/06/17 16:00 101 Intake & Output 05/07/17 05/07/17 07:00 19:00 Intake Total 1181 ml 888 ml Output Total 199 ml 190 ml Balance 982 ml 698 ml IV Total 1181 ml 888 ml Output Urine Total 199 ml 190 ml Gastric Drainage Total 0 ml Physical Exam CONSTITUTIONAL/GENERAL: This is an obese patient, in no apparent distress on the mechanical ventilator. EYES: Pupils unequal at 2 mm and 3 mm, and I see no reaction to light. ENT: Nose without bleeding or purulent drainage. NECK: Trachea midline. Supple, nontender. No palpable thyroid enlargement or nodularity. CARDIOVASCULAR: Regular rate and rhythm without murmurs, gallops, or rubs. No JVD. Peripheral pulses symmetric. RESPIRATORY/CHEST: Symmetric, unlabored respirations on the ventilator. Diminished breath sounds, scattered rhonchi GASTROINTESTINAL: Abdomen soft, obese, nondistended. No hepato-splenomegaly, or palpable masses. No guarding. Bowel sounds present. MUSCULOSKELETAL: Extremities without clubbing, cyanosis, or edema. No joint tenderness or effusion noted. No mottling or clubbing. NEUROLOGICAL: Unresponsive. Some myoclonic jerks noted PSYCHIATRIC: Unable to evaluate due to clinical condition . Diagnostic Tests Laboratory Laboratory Tests Test 05/05/17 07:00 05/05/17 07:15 05/05/17 08:40 05/05/17 10:35 White Blood Count 14.4 TH/MM3 (4.0-11.0) Red Blood Count 4.86 MIL/MM3 (4.00-5.30) Hemoglobin 15.8 GM/DL (11.6-15.3) Hematocrit 48.3 % (35.0-46.0) Mean Corpuscular Volume 99.5 FL (80.0-100.0) Mean Corpuscular Hemoglobin 32.5 PG (27.0-34.0) Mean Corpuscular Hemoglobin Concent 32.6 % (32.0-36.0) Red Cell Distribution Width 14.6 % (11.6-17.2) Platelet Count 183 TH/MM3 (150-450) Mean Platelet Volume 10.2 FL (7.0-11.0) Neutrophils (%) (Auto) 41.9 % (16.0-70.0) Lymphocytes (%) (Auto) 52.3 % (9.0-44.0) Monocytes (%) (Auto) 4.5 % (0.0-8.0) Eosinophils (%) (Auto) 0.7 % (0.0-4.0) Basophils (%) (Auto) 0.6 % (0.0-2.0) Neutrophils # (Auto) 6.0 TH/MM3 (1.8-7.7) Lymphocytes # (Auto) 7.5 TH/MM3 (1.0-4.8) Monocytes # (Auto) 0.7 TH/MM3 (0-0.9) Eosinophils # (Auto) 0.1 TH/MM3 (0-0.4) Basophils # (Auto) 0.1 TH/MM3 (0-0.2) CBC Comment AUTO DIFF Differential Total Cells Counted 100 Neutrophils % (Manual) 34 % (16-70) Band Neutrophils % 3 % (0-6) Lymphocytes % 49 % (9-44) Monocytes % 11 % (0-8) Eosinophils % 1 % (0-4) Neutrophils # (Manual) 5.6 TH/MM3 (1.8-7.7) Metamyelocytes 1 % (0-1) Myelocytes 1 % (0-0) Differential Comment FINAL DIFF MANUAL Red Cell Morphology Comment NORMAL (NORMAL) Prothrombin Time 10.8 SEC (9.8-11.6) Prothromb Time International Ratio 1.0 RATIO Activated Partial Thromboplast Time 27.3 SEC (24.3-30.1) Urine Color LIGHT-YELLOW (YELLW/STRAW) Urine Turbidity CLEAR (CLEAR) Urine pH 6.5 (5.0-8.5) Urine Specific Burton 1.007 (1.002-1.035) Urine Protein TRACE mg/dL (NEG-TRACE) Urine Glucose (UA) NEG mg/dL (NEG) Urine Ketones NEG mg/dL (NEG) Urine Occult Blood SMALL (NEG) Urine Nitrite NEG (NEG) Urine Bilirubin NEG (NEG) Urine Urobilinogen LESS THAN 2.0 MG/DL (LESS Urine Leukocyte Esterase NEG (NEG) Urine RBC 4 /hpf (0-3) Urine WBC 1 /hpf (0-5) Microscopic Urinalysis Comment CULT NOT INDICATED Blood Urea Nitrogen 21 MG/DL (7-18) Creatinine 1.21 MG/DL (0.50-1.00) Random Glucose 194 MG/DL (74-106) Total Protein 7.3 GM/DL (6.4-8.2) Albumin 3.4 GM/DL (3.4-5.0) Calcium Level 8.6 MG/DL (8.5-10.1) Magnesium Level 2.7 MG/DL (1.5-2.5) Alkaline Phosphatase 151 U/L (45-117) Aspartate Amino Transf (AST/SGOT) 245 U/L (15-37) Alanine Aminotransferase (ALT/SGPT) 177 U/L (10-53) Total Bilirubin 0.3 MG/DL (0.2-1.0) Sodium Level 143 MEQ/L (136-145) Potassium Level 4.1 MEQ/L (3.5-5.1) Chloride Level 104 MEQ/L (98-107) Carbon Dioxide Level 22.2 MEQ/L (21.0-32.0) Anion Gap 17 MEQ/L (5-15) Estimat Glomerular Filtration Rate 45 ML/MIN (>89) Lactic Acid Level 11.4 mmol/L (0.4-2.0) 3.1 mmol/L (0.4-2.0) Total Creatine Kinase 138 U/L (26-192) Creatine Kinase MB 1.6 NG/ML (0.5-3.6) Troponin I 0.03 NG/ML (0.02-0.05) B-Type Natriuretic Peptide 342 PG/ML (0-100) Lipase 168 U/L (73-393) Thyroid Stimulating Hormone 3rd Gen 4.890 uIU/ML (0.358-3.740) Salicylates Level 6.8 MG/DL (2.8-20.0) Urine Opiates Screen NEG (NEG) Acetaminophen Level LESS THAN 2.0 MCG/ML Urine Barbiturates Screen NEG (NEG) Valproic Acid (Depakene) Level LESS THAN 3 MCG/ML Urine Amphetamines Screen NEG (NEG) Urine Benzodiazepines Screen NEG (NEG) Urine Cocaine Screen NEG (NEG) Urine Cannabinoids Screen POS (NEG) Ethyl Alcohol Level LESS THAN 3 MG/DL (0-5) Blood Gas Puncture Site RT RADIAL RT RADIAL Blood Gas Patient Temperature 98.6 98.6 Blood Gas HCO3 21 mmol/L (22-26) 20 mmol/L (22-26) Blood Gas Base Excess -6.8 mmol/L (-2-2) -5.9 mmol/L (-2-2) Blood Gas Oxygen Saturation 91 % (90-100) 97 % (90-100) Arterial Blood pH 7.14 (7.380-7.420) 7.30 (7.380-7.420) Arterial Blood Partial Pressure CO2 64 mmHg (38-42) 41 mmHg (38-42) Arterial Blood Partial Pressure O2 103 mmHg (61-120) 461 mmHg (61-120) Arterial Blood Oxygen Content 19.7 Vol % (12.0-20.0) 22.0 Vol % (12.0-20.0) Arterial Blood Carboxyhemoglobin 4.5 % (0-4) 1.4 % (0-4) Arterial Blood Methemoglobin 0.7 % (0-2) 1.2 % (0-2) Blood Gas Hemoglobin 15.4 G/DL (12.0-16.0) 15.3 G/DL (12.0-16.0) Oxygen Delivery Device VENTILATOR VENTILATOR Blood Gas Ventilator Setting PRVC/AC Blood Gas Inspired Oxygen 100 % 100 % Ammonia 31 MCMOL/L (11-32) Test 05/05/17 11:00 05/05/17 12:10 05/05/17 15:08 05/05/17 20:20 Nasal Screen MRSA (PCR) MRSA NOT DETECTED (NOT Blood Urea Nitrogen 28 MG/DL (7-18) 28 MG/DL (7-18) 26 MG/DL (7-18) Creatinine 1.44 MG/DL (0.50-1.00) 1.31 MG/DL (0.50-1.00) 1.15 MG/DL (0.50-1.00) Random Glucose 247 MG/DL (74-106) 184 MG/DL (74-106) 140 MG/DL (74-106) Calcium Level 8.1 MG/DL (8.5-10.1) 8.4 MG/DL (8.5-10.1) 8.5 MG/DL (8.5-10.1) Phosphorus Level 4.8 MG/DL (2.5-4.9) Magnesium Level 2.4 MG/DL (1.5-2.5) 2.5 MG/DL (1.5-2.5) 2.3 MG/DL (1.5-2.5) Sodium Level 140 MEQ/L (136-145) 140 MEQ/L (136-145) 141 MEQ/L (136-145) Potassium Level 4.4 MEQ/L (3.5-5.1) 4.1 MEQ/L (3.5-5.1) 3.8 MEQ/L (3.5-5.1) Chloride Level 106 MEQ/L (98-107) 105 MEQ/L (98-107) 104 MEQ/L (98-107) Carbon Dioxide Level 25.9 MEQ/L (21.0-32.0) 29.7 MEQ/L (21.0-32.0) 27.1 MEQ/L (21.0-32.0) Anion Gap 8 MEQ/L (5-15) 5 MEQ/L (5-15) 10 MEQ/L (5-15) Estimat Glomerular Filtration Rate 37 ML/MIN (>89) 41 ML/MIN (>89) 48 ML/MIN (>89) Hepatitis A IgM Antibody NEGATIVE (NEGATIVE) Hepatitis B Surface Antigen NEGATIVE (NEGATIVE) Hepatitis B Core IgM Antibody NEGATIVE (NEGATIVE) Hepatitis C Antibody NEGATIVE (NEGATIVE) Troponin I 0.28 NG/ML (0.02-0.05) 0.24 NG/ML (0.02-0.05) Free Thyroxine 1.18 NG/DL (0.76-1.46) Free Triiodothyronine (T3) pg/dL 2.54 PG/ML (2.18-3.98) Test 05/06/17 05:14 05/06/17 05:15 05/06/17 16:05 05/07/17 03:30 Lactic Acid Level 2.6 mmol/L (0.4-2.0) Ammonia LESS THAN 10 MCMOL/L White Blood Count 23.4 TH/MM3 (4.0-11.0) 29.4 TH/MM3 (4.0-11.0) Red Blood Count 5.51 MIL/MM3 (4.00-5.30) 5.37 MIL/MM3 (4.00-5.30) Hemoglobin 18.0 GM/DL (11.6-15.3) 17.0 GM/DL (11.6-15.3) Hematocrit 53.4 % (35.0-46.0) 51.7 % (35.0-46.0) Mean Corpuscular Volume 97.0 FL (80.0-100.0) 96.3 FL (80.0-100.0) Mean Corpuscular Hemoglobin 32.8 PG (27.0-34.0) 31.7 PG (27.0-34.0) Mean Corpuscular Hemoglobin Concent 33.8 % (32.0-36.0) 32.9 % (32.0-36.0) Red Cell Distribution Width 14.1 % (11.6-17.2) 14.4 % (11.6-17.2) Platelet Count 162 TH/MM3 (150-450) 179 TH/MM3 (150-450) Mean Platelet Volume 9.8 FL (7.0-11.0) 10.5 FL (7.0-11.0) Neutrophils (%) (Auto) 88.3 % (16.0-70.0) 91.1 % (16.0-70.0) Lymphocytes (%) (Auto) 6.0 % (9.0-44.0) 3.8 % (9.0-44.0) Monocytes (%) (Auto) 5.5 % (0.0-8.0) 4.9 % (0.0-8.0) Eosinophils (%) (Auto) 0.1 % (0.0-4.0) 0.1 % (0.0-4.0) Basophils (%) (Auto) 0.1 % (0.0-2.0) 0.1 % (0.0-2.0) Neutrophils # (Auto) 20.7 TH/MM3 (1.8-7.7) 26.8 TH/MM3 (1.8-7.7) Lymphocytes # (Auto) 1.4 TH/MM3 (1.0-4.8) 1.1 TH/MM3 (1.0-4.8) Monocytes # (Auto) 1.3 TH/MM3 (0-0.9) 1.4 TH/MM3 (0-0.9) Eosinophils # (Auto) 0.0 TH/MM3 (0-0.4) 0.0 TH/MM3 (0-0.4) Basophils # (Auto) 0.0 TH/MM3 (0-0.2) 0.0 TH/MM3 (0-0.2) CBC Comment DIFF FINAL DIFF FINAL Differential Comment Prothrombin Time 12.2 SEC (9.8-11.6) Prothromb Time International Ratio 1.1 RATIO Activated Partial Thromboplast Time 28.7 SEC (24.3-30.1) Fibrinogen 445 mg/dL (227-377) Blood Urea Nitrogen 27 MG/DL (7-18) 26 MG/DL (7-18) 35 MG/DL (7-18) Creatinine 0.93 MG/DL (0.50-1.00) 0.61 MG/DL (0.50-1.00) 1.06 MG/DL (0.50-1.00) Random Glucose 126 MG/DL (74-106) 127 MG/DL (74-106) 139 MG/DL (74-106) Total Protein 7.2 GM/DL (6.4-8.2) 6.5 GM/DL (6.4-8.2) Albumin 3.1 GM/DL (3.4-5.0) 2.7 GM/DL (3.4-5.0) Calcium Level 8.0 MG/DL (8.5-10.1) 8.5 MG/DL (8.5-10.1) 8.7 MG/DL (8.5-10.1) Phosphorus Level 3.5 MG/DL (2.5-4.9) 5.3 MG/DL (2.5-4.9) Magnesium Level 2.0 MG/DL (1.5-2.5) 2.0 MG/DL (1.5-2.5) 1.9 MG/DL (1.5-2.5) Alkaline Phosphatase 139 U/L (45-117) 115 U/L (45-117) Aspartate Amino Transf (AST/SGOT) 148 U/L (15-37) 88 U/L (15-37) Alanine Aminotransferase (ALT/SGPT) 197 U/L (10-53) 145 U/L (10-53) Total Bilirubin 0.7 MG/DL (0.2-1.0) 0.5 MG/DL (0.2-1.0) Sodium Level 140 MEQ/L (136-145) 140 MEQ/L (136-145) 143 MEQ/L (136-145) Potassium Level 3.7 MEQ/L (3.5-5.1) 3.1 MEQ/L (3.5-5.1) 3.4 MEQ/L (3.5-5.1) Chloride Level 105 MEQ/L (98-107) 106 MEQ/L (98-107) 106 MEQ/L (98-107) Carbon Dioxide Level 23.1 MEQ/L (21.0-32.0) 23.9 MEQ/L (21.0-32.0) 24.4 MEQ/L (21.0-32.0) Anion Gap 12 MEQ/L (5-15) 10 MEQ/L (5-15) 13 MEQ/L (5-15) Estimat Glomerular Filtration Rate 61 ML/MIN (>89) 100 ML/MIN (>89) 53 ML/MIN (>89) Troponin I 0.19 NG/ML (0.02-0.05) Amylase Level 27 U/L (25-115) 18 U/L (25-115) Lipase 63 U/L (73-393) Test 05/07/17 05:00 05/07/17 05:20 Fibrinogen 593 mg/dL (227-377) Lactic Acid Level 2.2 mmol/L (0.4-2.0) Result Diagram: 05/07/17 0330 05/07/17 0330 Microbiology Microbiology Date/Time Source Procedure Growth Status 05/05/17 07:00 Blood Peripheral Aerobic Blood Culture - Preliminary NO GROWTH IN 2 DAYS Resulted 05/05/17 07:00 Blood Peripheral Anaerobic Blood Culture - Preliminary NO GROWTH IN 2 DAYS Resulted 05/05/17 06:55 Blood Peripheral Aerobic Blood Culture - Preliminary NO GROWTH IN 2 DAYS Resulted 05/05/17 06:55 Blood Peripheral Anaerobic Blood Culture - Preliminary NO GROWTH IN 2 DAYS Resulted 05/05/17 13:55 Nasal Aspirate Influenza Types A,B Antigen (PRATIK) - Final NEGATIVE FOR FLU A AND B ANTIGEN.... Complete 05/05/17 08:40 Sputum Endotracheal Gram Stain - Final Complete 05/05/17 08:40 Sputum Culture - Final Haemophilus Influenzae Complete 05/05/17 07:00 Urine Catheterized Urine Legionella Antigen - Final PRESUMPTIVE NEGATIVE FOR LEGIONELLA P... Complete 05/05/17 07:00 Urine Catheterized Urine Streptococcus pneumoniae Antigen (M - Final PRESUMPTIVE NEGATIVE FOR STREPTOCOCCU... Complete Procedures INTUBATION 05/05/17 Cold cooling 05/05 - 05/06/17 . 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 Spiritual: The patient's sister reports that the patient has "eclectic believes , "and they change at times. The patient's sister Karla is a machine boss and is ministering to the patient on a regular basis. Legal: The patient lacks capacity for decision-making and she will not regain that capacity. Her sister Karla and brother Saturnino are her proxy decision makers. Ethical issues impacting care: None . Important Contacts Sister: Karla Marin [phone] Brother: Kaiser Posada . Prognosis The prognosis is very poor, she appears to have had a severe anoxic injury. She is appropriate for hospice services when the goals become comfort oriented. . Code Status: Alternative Code (intubation only) Plan * ALTERNATE CODE, intubation only * DECISION-MAKING: The patient lacks capacity for decision-making and she will not regain that capacity. Her sister Karla and brother Saturnino are her proxy decision makers. * GOALS: Discussed by telephone with patient's sister Karla again 05/07/17. She has arranged for her brother, nephew, and another family member to come with her for tomorrow 3 PM meeting. She feels fairly certain that they will want to proceed with withdrawal of life support to allow natural unless there is a remarkable improvement before tomorrow afternoon. * SYMPTOMS: The patient does have underlying chronic musculoskeletal pain and had been taking opiates daily the past few years, but shows no signs of obvious pain now. The encephalopathy is quite profound. No further medication recommendations at this time. * Palliative Care will continue to follow the patient during this hospitalization. . Time Spent Total Floor Time (mins): 40 Face to Face Time (mins): 14 >50% Counseling/Coord of Care: Yes (d/w RN and with Dr. Espinal) Attestation To help prompt me to consider important information that might be impacting today's encounter and assessment, information from prior notes written by myself or my colleagues may have been "brought forward" into today's note. My signature on this note, however, is an attestation that I personally performed the exam, history, and/or decision-making noted today, and, unless otherwise indicated, the interactions with patient, family, and staff as well as the review of records all occurred today. I also attest that the listed assessment and stated plan reflect my best clinical judgment today based on the combination of historical information, prior notes, and today's exam/ interactions. When time spent is documented, it refers only to time spent today by the signer, or if indicated, combined time spent today by collaborating physician/nurse practitioner. Karolyn Clarke MD May 07, 2017 15:12
--- NOTE | 2017-05-07 19:13 | MG ---
cc: STANLEY GARCIA Lab No: Date: 05/07/2017 Age: Sex: F Race: TEST NUMBER [id number] INDICATION A 62-year-old woman. She is on propofol. This is a repeat EEG. Collapsed. Pulseless. CPR started. Pacemaker. MEDICATIONS 1. Keppra. 2. Propofol. DESCRIPTION The recording shows bifrontal spikes seen about three to four per second throughout the entire recording with some theta and beta waves and alpha waves intermixed. It is a burst suppression type pattern. Most of the suppressions only lasting about 1 second and the bursts lasting about 1-3 seconds. Hyperventilation and photic stimulation were not performed. Some feet twitching is noted and face twitching intermittently throughout. IMPRESSION This is a markedly abnormal EEG. A burst suppression pattern and spikes seen. Diffuse cerebral disturbance. ____ anoxic encephalopathy versus any underlying seizures should be considered. No major hemisphere asymmetries are noted. There is much more brain activity now compared to the EEG done several days ago which was mostly electroencephalographic silence and probably medication effect suppressing these bursts. The frequency of spikes as much slower now, more three per second versus about 10 per second prior but the patient was likely on less medications this time as far as sedatives than the EEG on the , but still quite an abnormal EEG. Clinical correlation is needed. MD EDGAR Peoples/EVAN /6:24 PM /7:03 PM
--- NOTE | 2017-05-07 21:49 | RADRPT ---
EXAM DATE/TIME: 05/07/2017 21:25 [facility] COMPARISON: CHEST SINGLE AP, May 05, 2017, 7:12. CT BRAIN W/O CONTRAST, May 05, 2017, 7:54. INDICATIONS : Seizure. RADIATION DOSE: 61.15 CTDIvol (mGy) MEDICAL HISTORY : Cardiovascular disease. Chronic obstructive pulmonary disease. Congestive heart failure.Seizure. CAD. Diabetes. Renal failure. SURGICAL HISTORY : Pacemaker. Cardiac catherization. ENCOUNTER: Initial ACUITY: 1 day PAIN SCALE: Non-responsive LOCATION: cranial TECHNIQUE: Multiple contiguous axial images were obtained of the head. Using automated exposure control and adj ustment of the mA and/or kV according to patient size, radiation dose was kept as low as reasonably a chievable to obtain optimal diagnostic quality images. DICOM format image data is available electro nically for review and comparison. FINDINGS: CEREBRUM: The ventricles are normal for age. No evidence of midline shift, mass lesion, hemorrhage or acute in farction. No extra-axial fluid collections are seen. POSTERIOR FOSSA: The cerebellum and brainstem are intact. The 4th ventricle is midline. The cerebellopontine angle i s unremarkable. EXTRACRANIAL: The visualized portion of the orbits is intact. There is fluid in the nasopharynx. The patient appear s intubated. SKULL: The calvaria is intact. No evidence of skull fracture. CONCLUSION: No intracranial abnormality is seen. Jayce Diaz MD on May 07, 2017 at 21:46 Board Certified Radiologist. This report was verified electronically.
[2017-05-07] MEDS: levETIRAcetam INJ 750 MG in SODIUM CHLORIDE 0.9% INJ 100 ML IV SCH (21:54)
[2017-05-08] VITALS (26 sets, daily range): BP systolic 93–121; BP diastolic 50–64; PULSE 4–127; RESP 13–24; TEMP 97.8; O2SAT 70–99
[2017-05-08] MEDS: MIDAZOLAM 100 MG/NS 100 ML DRIP Premix IV SCH ×2 (00:03→13:10)
[2017-05-08] MEDS: RESP: ALBUTEROL 2.5 MG/IPRATROPIUM 0.5 MG NEB (SCH) NEB ×5 (00:04→15:54)
[2017-05-08] MEDS: INSULIN ASPART SUPPLEMENTAL SCALE SQ SCH ×4 (00:25→13:00)
[2017-05-08] MEDS: PROPOFOL 1000 MG/100 ML INJ 100 ML IV PRN ×4 (01:18→13:11)
[2017-05-08] MEDS: CHLORHEXIDINE GLUCONATE 2 % 1 PACK (2 CLOTHS) TOP SCH (04:00)
[2017-05-08] MEDS: NS IV SCH ×4 (04:03→11:41)
[2017-05-08] MEDS: VALPROATE IV SCH ×4 (04:03→11:41)
[2017-05-08] MEDS: ARTIFICIAL TEARS OPTH OINT 3.5 APPLIC/3.5 GM TUBO EACH EYE SCH ×2 (05:55→13:05)
[2017-05-08] MEDS: CHLORHEXIDINE 0.12% (ORAL KIT) 15 ML CUP MT SCH (07:29)
[2017-05-08] MEDS: NOREPINEPHRINE INJ 4 MG in SODIUM CHLOR 0.9% 250 ML INJ 246 ML IV PRN (07:30)
[2017-05-08] MEDS: levETIRAcetam INJ 750 MG in SODIUM CHLORIDE 0.9% INJ 100 ML IV SCH (08:16)
[2017-05-08] MEDS: SODIUM CHLORIDE 0.9% FLUSH 10 ML FLUSH IV FLUSH SCH (08:17)
[2017-05-08] MEDS: DOCUSATE SODIUM 100 MG/10 ML UDC PO SCH (08:17)
[2017-05-08] MEDS: SENNOSIDES SYRUP 8.8 MG/5 ML CUP PO SCH (08:17)
[2017-05-08] MEDS: ASPIRIN 81 MG CHEW TAB OG-TUBE SCH (08:18)
[2017-05-08] MEDS: LANSOPRAZOLE SOLUTAB 30 MG TAB NG SCH (08:18)
[2017-05-08] MEDS: AZITHROMYCIN INJ 500 MG in SODIUM CHLOR 0.9% 250 ML INJ 250 ML IV SCH (08:18)
--- NOTE | 2017-05-08 08:42 | HHI.PR ---
Review/Management Diagnosis/Plan: (1) Anoxic encephalopathy ICD Codes: G93.1 - Anoxic brain damage, not elsewhere classified Status: Acute Plan: limited exam 2/2 sedation/paralytics asymmetric pupils eeg- burst suppression repeat eeg- spike bursts based on eeg and myoclonus, suggestive of myoclonic status which is a poor prognostic indicator 05/05 ct brain naicp recs f/u eeg on iv keppra/depakote/versed gtt mri brain when medically feasible d/w rn/ccm overall prognosis does not appear good based on pea arrest and multiple medical co-morbidities (2) PEA (Pulseless electrical activity) ICD Codes: I46.9 - Cardiac arrest, cause unspecified Status: Acute (3) Acute respiratory failure with hypoxia and hypercapnia ICD Codes: J96.01 - Acute respiratory failure with hypoxia; J96.02 - Acute respiratory failure with hypercapnia Status: Acute Subjective Subjective Comments no acute events Active Medications Current Medications Medications (Trade) Dose Ordered Sig/Janine Route Start Time Stop Time Status Last Admin (NS Flush) 2 ml UNSCH PRN IV FLUSH 05/05/17 07:45 05/07/17 16:48 (NS Flush) 2 ml BID IV FLUSH 05/05/17 09:00 05/08/17 08:17 (Zofran Inj) 4 mg Q6H PRN IV PUSH 05/05/17 07:45 (Albuterol Neb) 2.5 mg Q2HR NEB PRN INH 05/05/17 07:45 Miscellaneous Information 1 Q361D XX 05/05/17 07:45 05/05/17 07:45 (Chlorhexidine 2% Cloth) 3 pack Taper DAILY@04 TOP 05/06/17 04:00 05/02/18 03:59 05/08/17 04:00 (Chlorhexidine 2% Cloth) 3 pack UNSCH PRN TOP 05/05/17 07:45 (Milk Of Magnesia Liq) 30 ml Q12H PRN PO 05/05/17 07:45 (Senokot) 17.2 mg Q12H PRN PO 05/05/17 07:45 (Lactulose Liq) 30 ml DAILY PRN PO 05/05/17 07:45 Propofol 100 ml @ 2.25 mls/hr TITRATE PRN IV 05/05/17 08:00 05/08/17 05:22 (Duoneb Neb) 1 ampule Q4HR NEB NEB 05/05/17 08:00 05/08/17 07:39 Fentanyl Citrate 250 ml @ 5 mls/hr TITRATE PRN IV 05/05/17 08:15 (D50w (Vial) Inj) 50 ml UNSCH PRN IV PUSH 05/05/17 08:45 (Glucagon Inj) 1 mg UNSCH PRN OTHER 05/05/17 08:45 (NovoLOG SUPPLEMENTAL SCALE) 1 Q4H SQ 05/05/17 09:00 05/07/17 21:00 (Aspirin Chew) 81 mg DAILY OG-TUBE 05/06/17 09:00 05/08/17 08:18 Azithromycin 500 mg/Sodium Chloride 250 ml @ 250 mls/hr Q24H IV 05/06/17 09:00 05/08/17 08:18 Cefepime HCl 2000 mg/Sodium Chloride 100 ml @ 200 mls/hr Q12H IV 05/06/17 00:00 05/08/17 00:00 (Peridex 0.12% Liq) 15 ml BID@08,20 MT 05/05/17 20:00 05/08/17 07:29 Cisatracurium Besylate 100 mg/ Sodium Chloride 250 ml @ 37.12 mls/ hr TITRATE PRN IV 05/05/17 12:00 05/07/17 04:45 Miscellaneous Information 0 ml @ 0 mls/hr UNSCH IV 05/05/17 10:45 Norepinephrine Bitartrate 4 mg/ Sodium Chloride 250 ml @ 7.5 mls/hr TITRATE PRN IV 05/05/17 10:45 05/08/17 07:30 (Heparin Inj) 5,000 units Q12H SQ 05/05/17 11:00 05/07/17 22:54 (Lacrilube Opht Oint) 1 applic Q8HR EACH EYE 05/06/17 01:45 05/08/17 05:55 (Colace Liq) 100 mg Q12HR PO 05/06/17 09:00 05/08/17 08:17 (Senna Liq) 8.8 mg Q12HR PO 05/06/17 09:00 05/08/17 08:17 (Prevacid Odt) 30 mg DAILY NG 05/06/17 09:00 05/08/17 08:18 Sodium Chloride 1,000 ml @ 50 mls/hr Q20H IV 05/06/17 18:00 05/07/17 14:42 (Ativan Inj) 2 mg Q15M PRN IV PUSH 05/07/17 10:30 05/07/17 16:48 Levetriacetam 750 mg/Sodium Chloride 107.5 ml @ 430 mls/hr Q12H IV 05/07/17 21:00 05/08/17 08:16 Valproate Sodium 500 mg/Sodium Chloride 105 ml @ 105 mls/hr Q8H IV 05/07/17 12:00 05/08/17 04:03 Midazolam HCl 100 ml @ 7.5 mls/hr [id number] IV 05/07/17 12:00 05/08/17 00:03 Allergies Allergies Coded Allergies amoxicillin (Unverified Allergy, Severe, NAUSEA, 05/05/17) clavulanic acid (Unverified Allergy, Severe, NAUSEA, 05/05/17) codeine (Unverified Allergy, Severe, headache, 05/05/17) metformin (Unverified Allergy, Severe, NAUSEA, 05/05/17) morphine (Unverified Allergy, Severe, ITCHING, 05/05/17) Review of Systems All other ROS: Unable to obtain Exam I&O / VS 05/08/17 05/08/17 05/09/17 15:00 23:00 07:00 Output Total 16 ml Balance -16 ml Output Urine Total 16 ml Vital Signs Date Time Temp Pulse Resp B/P (MAP) Pulse Ox O2 Delivery O2 Flow Rate FiO2 05/08/17 08:15 96.6 79 21 121/64 (83) 96 05/08/17 08:00 96.6 78 21 117/64 (81) 96 05/08/17 08:00 50 05/08/17 08:00 79 05/08/17 07:45 96.6 77 21 113/62 (79) 96 05/08/17 07:39 96 40 05/08/17 07:30 96.4 77 22 110/58 (75) 96 05/08/17 07:30 77 110/58 05/08/17 07:15 96.4 76 21 109/57 (74) 95 05/08/17 07:00 96.4 77 21 105/55 (72) 95 05/08/17 06:46 76 107/55 05/08/17 06:35 77 104/55 05/08/17 06:00 76 05/08/17 05:55 76 104/57 05/08/17 04:59 75 103/58 05/08/17 04:38 75 102/55 05/08/17 04:01 75 108/58 05/08/17 04:00 75 05/08/17 04:00 40 05/08/17 04:00 96.4 75 22 108/58 (75) 93 05/08/17 03:55 93 40 05/08/17 02:50 76 101/56 05/08/17 02:00 79 05/08/17 00:04 93 40 05/08/17 00:00 40 05/08/17 00:00 96.1 74 22 97/53 (68) 93 05/08/17 00:00 74 05/07/17 22:46 74 96/55 05/07/17 22:00 76 05/07/17 21:15 100 100 17 20:20 94 40 05/07/17 20:00 80 17 20:00 40 05/07/17 20:00 97.0 80 23 106/64 (78) 94 05/07/17 19:05 80 100/62 17 18:00 79 05/07/17 16:45 97.2 79 23 101/57 (72) 94 05/07/17 16:30 97.2 79 22 106/60 (75) 96 05/07/17 16:15 97.2 79 21 101/59 (73) 96 05/07/17 16:00 97.3 79 21 98/53 (68) 96 15/17 16:00 78 05/07/17 16:00 50 05/07/17 15:45 97.3 79 22 96/53 (67) 95 15/17 15:30 97.3 79 21 97/52 (67) 97 05/07/17 15:29 96 40 15/17 15:15 97.3 79 22 97/52 (67) 97 15/17 15:00 97.3 79 21 96/55 (69) 97 05/07/17 14:45 97.3 79 22 96/51 (66) 97 05/07/17 14:30 97.3 79 21 93/51 (65) 97 05/07/17 14:15 97.3 79 21 92/51 (65) 97 05/07/17 14:12 79 93/52 05/07/17 14:00 78 05/07/17 14:00 97.3 79 20 93/52 (66) 97 05/07/17 13:45 97.3 79 21 95/53 (67) 98 05/07/17 13:30 97.3 80 21 93/51 (65) 97 05/07/17 13:26 97 50 05/07/17 13:15 97.3 80 22 92/51 (65) 97 05/07/17 13:00 97.5 80 21 93/52 (66) 97 05/07/17 12:00 78 05/07/17 12:00 50 05/07/17 12:00 97.4 78 21 88/54 (65) 97 05/07/17 11:00 82 05/07/17 11:00 97.7 82 24 82/50 (61) 95 05/07/17 10:59 95 50 05/07/17 10:00 98.1 95 45 89/55 (66) 95 05/07/17 10:00 95 05/07/17 09:00 97 05/07/17 09:00 97.9 97 18 89/52 (64) 96 Exam Comments coma state. non-verbal, not following, od 5mm os 2mm nr, no corneals, no grimace, no involuntary movements, no withdrawal to tactile Objective Micro and Labs Laboratory Tests Test 05/08/17 04:35 Phenytoin (Dilantin) Level 5.2 Date/Time Source Procedure Growth Status 05/05/17 07:00 Blood Peripheral Aerobic Blood Culture - Preliminary NO GROWTH IN 2 DAYS Resulted 05/05/17 07:00 Blood Peripheral Anaerobic Blood Culture - Preliminary NO GROWTH IN 2 DAYS Resulted 05/05/17 13:55 Nasal Aspirate Influenza Types A,B Antigen (PRATIK) - Final NEGATIVE FOR FLU A AND B ANTIGEN.... Complete 05/05/17 07:00 Urine Catheterized Urine Legionella Antigen - Final PRESUMPTIVE NEGATIVE FOR LEGIONELLA P... Complete 05/05/17 07:00 Urine Catheterized Urine Streptococcus pneumoniae Antigen (M - Final PRESUMPTIVE NEGATIVE FOR STREPTOCOCCU... Complete Stewart Wallace MD May 08, 2017 08:42
[2017-05-08] MEDS: SODIUM CHLOR 0.9% 1000 ML INJ 1,000 ML IV SCH (09:34)
[2017-05-08] MEDS: HEPARIN SODIUM - SQ 10,000 UNITS/ML VIAL SQ SCH (10:33)
[2017-05-08] MEDS: CEFEPIME INJ 2,000 MG in SODIUM CHLORIDE 0.9% INJ 100 ML IV SCH ×3 (11:40)
--- NOTE | 2017-05-08 11:58 | HHI.CCPN ---
Subjective Remarks/Hospital Course 05/05: 62 yo female with PMH of DM, HTN, HLD, nonischemic cardiomyopathy EF 20% with ICD, CK D stage III, peripheral neuropathy, depression/anxiety, obesity, COPD, tobacco abuse who presents to [facility] emergency department following PEA arrest. She notified her brother that she was SOB and she then collapsed and her brother initiated bystander CPR. When [facility] arrived she was in PEA. She was given epinephrine 2 and bicarbonate 1. She was intubated at the scene. She had some twitching movements after arrival and it was unclear if this is related to seizure activity versus myoclonus. 05/06: Remains sedated, on neuromuscular blockade, orally intubated on mechanical ventilation. On therapeutic hypothermia protocol. 05/07: Remains encephalopathic. Had myoclonic jerks following rewarming and turning off neuromuscular blockade last night. Remains on propofol. EEG this morning with significant seizure activity. 05/08: Remains sedated, orally intubated on mechanical ventilation. On Versed and propofol drips. EEG this morning shows active seizure activity awaiting final report. Objective Vital Signs Date Time Temp Pulse Resp B/P (MAP) Pulse Ox O2 Delivery O2 Flow Rate FiO2 05/08/17 11:41 84 110/57 05/08/17 08:15 96.6 21 96 05/08/17 08:00 50 05/05/17 09:27 Ventilator Intake and Output 05/08/17 05/08/17 05/09/17 08:00 16:00 00:00 Intake Total 1384.2 ml Output Total 291 ml 160 ml Balance 1093.2 ml -160 ml Result Diagram: 05/07/17 0330 05/07/17 0330 Other Results Microbiology Date/Time Source Procedure Growth Status 05/05/17 13:55 Nasal Aspirate Influenza Types A,B Antigen (PRATIK) - Final NEGATIVE FOR FLU A AND B ANTIGEN.... Complete Imaging Last Impressions Chest X-Ray 05/05/17 0648 Signed Impressions: Service Date/Time: Friday, May 05, 2017 07:12 - CONCLUSION: 1. Endotracheal and nasogastric tubes are in good position. 2. Cardiomegaly with vascular congestion but no evidence of pulmonary edema consolidating airspace disease. 3. AICD. Mikael Hinton MD Liver Ultrasound 05/05/17 0000 Signed Impressions: Service Date/Time: Friday, May 05, 2017 14:28 - CONCLUSION: 1. No findings to indicate biliary obstruction. 2. Slight thickening of the gallbladder wall with trace amount of pericholecystic fluid. No stones are seen within the gallbladder. 3. Mild increased echogenicity of the right renal cortex suggesting underlying medical renal disease. 4. Renal stone and small renal cyst as above. Carlos Roman MD Head CT 05/05/17 0000 Signed Impressions: Service Date/Time: Friday, May 05, 2017 07:54 - CONCLUSION: No acute disease. Study is motion degraded. Yony Ahmadi Jr., MD CT Angiography 05/05/17 0000 Signed Impressions: Service Date/Time: Friday, May 05, 2017 07:58 - CONCLUSION: 1. Patchy airspace disease predominantly in the right upper lobe posteriorly and the left base. Findings could represent pneumonic infiltrates. 2. There is also dependent atelectatic changes in both hemithoraces, slightly more prominent on the right. 3. No pulmonary embolus or effusion. Saran Perdomo MD Objective Remarks GENERAL: Obese female who is orotracheally intubated. SKIN: Warm, diaphoretic. HEAD: Atraumatic. Normocephalic. EYES: Right pupil 6 mm and sluggishly reactive 4 mm. Left pupil 4 mm and reacts to 3 mm.. No scleral icterus. No injection or drainage. ENT: No nasal bleeding or discharge. Mucous membranes pink and moist. NECK: Trachea midline. Thick neck, no JVD appreciated. CARDIOVASCULAR: Regular rate and rhythm, sinus rhythm on monitor with rate in 80s. No murmurs rubs or gallops. RESPIRATORY: Decreased air movement bilaterally with coarse breath sounds bilaterally. No Rales. GASTROINTESTINAL: Abdomen obese, soft, without apparent tenderness or rebound. Bowel sounds present. OG tube in place to low intermittent suction with particulate nonbloody gastric output MUSCULOSKELETAL: Extremities without clubbing, cyanosis, or edema. There is muscular atrophy of bilateral lower extremities NEUROLOGICAL: Remains encephalopathic, sedated, orally intubated on mechanical ventilation. No response to Babinski. No withdrawal bilateral lower extremities. A/P Problem List: (1) Nonischemic cardiomyopathy ICD Code: I42.8 - Other cardiomyopathies Status: Chronic (2) PEA (Pulseless electrical activity) ICD Code: I46.9 - Cardiac arrest, cause unspecified Status: Acute (3) Acute respiratory failure with hypoxia and hypercapnia ICD Code: J96.01 - Acute respiratory failure with hypoxia; J96.02 - Acute respiratory failure with hypercapnia Status: Acute (4) Acute encephalopathy ICD Code: G93.40 - Encephalopathy, unspecified Status: Acute (5) Type II diabetes mellitus with complication ICD Code: E11.8 - Type 2 diabetes mellitus with unspecified complications Status: Chronic (6) HTN (hypertension) ICD Code: I10 - Essential (primary) hypertension Status: Chronic (7) HLD (hyperlipidemia) ICD Code: E78.5 - Hyperlipidemia, unspecified Status: Chronic (8) Obesity ICD Code: E66.9 - Obesity, unspecified Status: Chronic (9) CKD (chronic kidney disease) stage 3, GFR 30-59 ml/min ICD Code: N18.3 - Chronic kidney disease, stage 3 (moderate) Status: Chronic (10) LBBB (left bundle branch block) ICD Code: I44.7 - Left bundle-branch block, unspecified Status: Chronic (11) Anxiety ICD Code: F41.9 - Anxiety disorder, unspecified Status: Chronic (12) Depression ICD Code: F32.9 - Major depressive disorder, single episode, unspecified Status: Chronic (13) Marijuana abuse ICD Code: F12.10 - Cannabis abuse, uncomplicated (14) Tobacco abuse ICD Code: Z72.0 - Tobacco use Status: Chronic (15) ICD (implantable cardioverter-defibrillator) in place ICD Code: Z95.810 - Presence of automatic (implantable) cardiac defibrillator Status: Chronic (16) Transaminitis ICD Code: R74.0 - Nonspecific elevation of levels of transaminase and lactic acid dehydrogenase [LDH] Status: Acute (17) Peripheral neuropathy ICD Code: G62.9 - Polyneuropathy, unspecified Status: Chronic (18) Leukocytosis ICD Code: D72.829 - Elevated white blood cell count, unspecified Status: Acute Assessment and Plan NEURO: Possible anoxic encephalopathy Myoclonus versus seizure Depression Anxiety Peripheral neuropathy Insomnia CT brain- negative EEG with seizure activity Unable to obtain MRI due to ICD. Urine drug screen positive for marijuana. Depakote level <3 (previously on Depakote during prior visit, not active med) Propofol for sedation. Versed gtt started 05/08 per Neuro for seizure control. Nimbex stopped. Fentanyl for analgosedation-currently off. Neurology consulted for question of anoxic encephalopathy. EEG abnormal. Anticonvulsants per neurology RESP: Acute hypoxemic and hypercapnic respiratory failure Tobacco abuse COPD DuoNeb every 4 hours. Albuterol every 2 hours as needed. Ventilator bundle. CTA chest negative for PE CV: PEA cardiac arrest Hyperlipidemia Hypertension Nonischemic cardiomyopathy with ICD Lactic acidemia Obtain 2-D echo. Continue ASA. Hold statin due to elevated LFTs Hold Coreg in v/o hypotension. Levophed for pressor support. Hold spironolactone/lasix GI: Obesity Transaminitis OG-tube to low intermittent wall suction. If family desires to continue aggressive care will initiate tube feeds FEN/RENAL: Chronic kidney disease stage III Hypermagnesemia Insert Palma. Monitor intake and output. Monitor electrolytes. Replace as indicated. ID: Leukocytosis Acute community acquired pneumonia Follow up blood and sputum cultures. Check influenza screen, urine Legionella antigen, urine pneumococcal antigen, Continue the azithromycin/cefepime IV for empiric antibiotic coverage. HEME: Hgb elevated ENDO: Diabetes mellitus TSH elevated. Obtain free T3/T4 Monitor bedside glucose every 4 hours with low-dose insulin sliding scale as indicated. PROPH: SCD for DVT prophylaxis. Famotidine 20 mg IV every 12 hours for stress ulcer prophylaxis. ACCESS: PIV, cool guard cooling catheter Patient is status post PEA cardiac arrest with possible anoxic encephalopathy undergoing hypothermia protocol. She is at high risk for further decompensation and remains critically ill. Her brother, Saturnino Travis, states: she is not . Her boyfriend "has a brain injury and is not there all the time". She has no children. Her parents are . She has one sister and one brother who are living. Reportedly no living will. Consulted palliative care team to assist with deciding goals of therapy. Neurology consult requested for anoxic encephalopathy. Family has made patient alternate CODE STATUS and are considering de-escalation of therapy as prognosis appears extremely poor. Time spent on critical care excluding procedures 35 minutes Mina Espinal MD May 08, 2017 11:58
[2017-05-08] MEDS ORDERED: MORPHINE SULFATE 8 MG/ML INJ IV PUSH ONE (15:30)
[2017-05-08] MEDS ORDERED: HYOSCYAMINE 0.5 MG/ML AMP IV PUSH ONE (15:30)
[2017-05-08] MEDS ORDERED: LORazepam 2 MG/ML VIAL IV PUSH ONE ×2 (15:30→15:45)
[2017-05-08] MEDS ORDERED: MORPHINE SULFATE 4 MG/ML INJ IV PUSH ONE (15:45)
--- NOTE | 2017-05-08 15:55 | HHI.HCPN ---
Reason for visit a. To assist with evaluation and management of symptoms including: Dyspnea , encephalopathy b. To assist medical decision maker(s) with: better understanding of current medical conditions; weighing benefits/burdens of medical treatment options; making medical treatment decisions. . Subjective/Interval History INTERVAL NOTE: The patient remains unresponsive, afebrile, on 3 antiseizure meds. The newest EEG from today continues to look like a lot of seizure activity. The pupils are now unequal, not reactive. . Family/friend interactions Discussion in the conference room with the patient's sister Karla, brother Kaiser , and significant other Busby. All 3 are certain that the patient would not want to be kept alive like this given the poor prognosis. All 3 are certain that she would want us to withdraw life support, keep her comfortable and peaceful, and allow natural . . Advance Directives Living Will: Never completed Health Care Surrogate: Never completed Durable Power of Enrollment Manager: Never completed Advance Directive Specifics Significant change in goals: Brother, sister, and significant other or request withdrawal of life support to allow natural today. . Objective Vital Signs Date Time Temp Pulse Resp B/P (MAP) Pulse Ox O2 Delivery O2 Flow Rate FiO2 05/08/17 14:00 87 05/08/17 13:10 86 109/59 05/08/17 12:45 97.5 86 22 109/59 (76) 94 05/08/17 12:30 97.5 86 22 108/55 (72) 95 05/08/17 12:15 97.3 86 22 108/56 (73) 94 05/08/17 12:00 84 05/08/17 12:00 97.3 84 21 110/57 (74) 95 05/08/17 12:00 50 05/08/17 11:53 99 40 05/08/17 11:41 84 110/57 05/08/17 10:00 84 05/08/17 09:30 84 116/67 05/08/17 08:15 96.6 79 21 121/64 (83) 96 05/08/17 08:00 96.6 78 21 117/64 (81) 96 05/08/17 08:00 50 05/08/17 08:00 79 05/08/17 07:45 96.6 77 21 113/62 (79) 96 05/08/17 07:39 96 40 11/16/17 07:30 96.4 77 22 110/58 (75) 96 05/08/17 07:30 77 110/58 05/08/17 07:15 96.4 76 21 109/57 (74) 95 05/08/17 07:00 96.4 77 21 105/55 (72) 95 05/08/17 06:46 76 107/55 05/08/17 06:35 77 104/55 05/08/17 06:00 76 05/08/17 05:55 76 104/57 05/08/17 04:59 75 103/58 05/08/17 04:38 75 102/55 05/08/17 04:01 75 108/58 05/08/17 04:00 75 05/08/17 04:00 40 05/08/17 04:00 96.4 75 22 108/58 (75) 93 05/08/17 03:55 93 40 05/08/17 02:50 76 101/56 05/08/17 02:00 79 05/08/17 00:04 93 40 05/08/17 00:00 40 05/08/17 00:00 96.1 74 22 97/53 (68) 93 05/08/17 00:00 74 05/07/17 22:46 74 96/55 05/07/17 22:00 76 05/07/17 21:15 100 100 05/07/17 20:20 94 40 05/07/17 20:00 80 05/07/17 20:00 40 05/07/17 20:00 97.0 80 23 106/64 (78) 94 05/07/17 19:05 80 100/62 05/07/17 18:00 79 05/07/17 16:45 97.2 79 23 101/57 (72) 94 05/07/17 16:30 97.2 79 22 106/60 (75) 96 05/07/17 16:15 97.2 79 21 101/59 (73) 96 05/07/17 16:00 97.3 79 21 98/53 (68) 96 05/07/17 16:00 78 05/07/17 16:00 50 Intake & Output 05/08/17 05/08/17 07:00 19:00 Intake Total 1939.2 ml 215 ml Output Total 493 ml 176 ml Balance 1446.2 ml 39 ml IV Total 1939.2 ml 215 ml Output Urine Total 493 ml 176 ml Physical Exam CONSTITUTIONAL/GENERAL: This is an obese patient, in no apparent distress on the mechanical ventilator. EYES: Pupils unequal at 1 mm and 3 mm, and I still see no reaction to light. NECK: Trachea midline. Supple, nontender. No palpable thyroid enlargement or nodularity. CARDIOVASCULAR: Regular rate and rhythm without murmurs, gallops, or rubs. No JVD. Peripheral pulses symmetric. RESPIRATORY/CHEST: Symmetric, unlabored respirations on the ventilator. Diminished breath sounds, scattered rhonchi GASTROINTESTINAL: Abdomen soft, obese, nondistended. No hepato-splenomegaly, or palpable masses. No guarding. Bowel sounds present. MUSCULOSKELETAL: Extremities without clubbing, cyanosis, or edema. No joint tenderness or effusion noted. No mottling or clubbing. NEUROLOGICAL: Unresponsive. Some myoclonic jerks noted PSYCHIATRIC: Unable to evaluate due to clinical condition . Diagnostic Tests Laboratory Laboratory Tests Test 05/05/17 20:20 05/06/17 05:14 05/06/17 05:15 05/06/17 16:05 Blood Urea Nitrogen 26 MG/DL (7-18) 27 MG/DL (7-18) 26 MG/DL (7-18) Creatinine 1.15 MG/DL (0.50-1.00) 0.93 MG/DL (0.50-1.00) 0.61 MG/DL (0.50-1.00) Random Glucose 140 MG/DL (74-106) 126 MG/DL (74-106) 127 MG/DL (74-106) Calcium Level 8.5 MG/DL (8.5-10.1) 8.0 MG/DL (8.5-10.1) 8.5 MG/DL (8.5-10.1) Magnesium Level 2.3 MG/DL (1.5-2.5) 2.0 MG/DL (1.5-2.5) 2.0 MG/DL (1.5-2.5) Sodium Level 141 MEQ/L (136-145) 140 MEQ/L (136-145) 140 MEQ/L (136-145) Potassium Level 3.8 MEQ/L (3.5-5.1) 3.7 MEQ/L (3.5-5.1) 3.1 MEQ/L (3.5-5.1) Chloride Level 104 MEQ/L (98-107) 105 MEQ/L (98-107) 106 MEQ/L (98-107) Carbon Dioxide Level 27.1 MEQ/L (21.0-32.0) 23.1 MEQ/L (21.0-32.0) 23.9 MEQ/L (21.0-32.0) Anion Gap 10 MEQ/L (5-15) 12 MEQ/L (5-15) 10 MEQ/L (5-15) Estimat Glomerular Filtration Rate 48 ML/MIN (>89) 61 ML/MIN (>89) 100 ML/MIN (>89) Troponin I 0.24 NG/ML (0.02-0.05) 0.19 NG/ML (0.02-0.05) Free Thyroxine 1.18 NG/DL (0.76-1.46) Free Triiodothyronine (T3) pg/dL 2.54 PG/ML (2.18-3.98) Lactic Acid Level 2.6 mmol/L (0.4-2.0) Ammonia LESS THAN 10 MCMOL/L White Blood Count 23.4 TH/MM3 (4.0-11.0) Red Blood Count 5.51 MIL/MM3 (4.00-5.30) Hemoglobin 18.0 GM/DL (11.6-15.3) Hematocrit 53.4 % (35.0-46.0) Mean Corpuscular Volume 97.0 FL (80.0-100.0) Mean Corpuscular Hemoglobin 32.8 PG (27.0-34.0) Mean Corpuscular Hemoglobin Concent 33.8 % (32.0-36.0) Red Cell Distribution Width 14.1 % (11.6-17.2) Platelet Count 162 TH/MM3 (150-450) Mean Platelet Volume 9.8 FL (7.0-11.0) Neutrophils (%) (Auto) 88.3 % (16.0-70.0) Lymphocytes (%) (Auto) 6.0 % (9.0-44.0) Monocytes (%) (Auto) 5.5 % (0.0-8.0) Eosinophils (%) (Auto) 0.1 % (0.0-4.0) Basophils (%) (Auto) 0.1 % (0.0-2.0) Neutrophils # (Auto) 20.7 TH/MM3 (1.8-7.7) Lymphocytes # (Auto) 1.4 TH/MM3 (1.0-4.8) Monocytes # (Auto) 1.3 TH/MM3 (0-0.9) Eosinophils # (Auto) 0.0 TH/MM3 (0-0.4) Basophils # (Auto) 0.0 TH/MM3 (0-0.2) CBC Comment DIFF FINAL Differential Comment Prothrombin Time 12.2 SEC (9.8-11.6) Prothromb Time International Ratio 1.1 RATIO Activated Partial Thromboplast Time 28.7 SEC (24.3-30.1) Fibrinogen 445 mg/dL (227-377) Total Protein 7.2 GM/DL (6.4-8.2) Albumin 3.1 GM/DL (3.4-5.0) Phosphorus Level 3.5 MG/DL (2.5-4.9) Alkaline Phosphatase 139 U/L (45-117) Aspartate Amino Transf (AST/SGOT) 148 U/L (15-37) Alanine Aminotransferase (ALT/SGPT) 197 U/L (10-53) Total Bilirubin 0.7 MG/DL (0.2-1.0) Amylase Level 27 U/L (25-115) Test 05/07/17 03:30 05/07/17 05:00 05/07/17 05:20 05/08/17 04:35 White Blood Count 29.4 TH/MM3 (4.0-11.0) Red Blood Count 5.37 MIL/MM3 (4.00-5.30) Hemoglobin 17.0 GM/DL (11.6-15.3) Hematocrit 51.7 % (35.0-46.0) Mean Corpuscular Volume 96.3 FL (80.0-100.0) Mean Corpuscular Hemoglobin 31.7 PG (27.0-34.0) Mean Corpuscular Hemoglobin Concent 32.9 % (32.0-36.0) Red Cell Distribution Width 14.4 % (11.6-17.2) Platelet Count 179 TH/MM3 (150-450) Mean Platelet Volume 10.5 FL (7.0-11.0) Neutrophils (%) (Auto) 91.1 % (16.0-70.0) Lymphocytes (%) (Auto) 3.8 % (9.0-44.0) Monocytes (%) (Auto) 4.9 % (0.0-8.0) Eosinophils (%) (Auto) 0.1 % (0.0-4.0) Basophils (%) (Auto) 0.1 % (0.0-2.0) Neutrophils # (Auto) 26.8 TH/MM3 (1.8-7.7) Lymphocytes # (Auto) 1.1 TH/MM3 (1.0-4.8) Monocytes # (Auto) 1.4 TH/MM3 (0-0.9) Eosinophils # (Auto) 0.0 TH/MM3 (0-0.4) Basophils # (Auto) 0.0 TH/MM3 (0-0.2) CBC Comment DIFF FINAL Differential Comment Blood Urea Nitrogen 35 MG/DL (7-18) Creatinine 1.06 MG/DL (0.50-1.00) Random Glucose 139 MG/DL (74-106) Total Protein 6.5 GM/DL (6.4-8.2) Albumin 2.7 GM/DL (3.4-5.0) Calcium Level 8.7 MG/DL (8.5-10.1) Alkaline Phosphatase 115 U/L (45-117) Aspartate Amino Transf (AST/SGOT) 88 U/L (15-37) Alanine Aminotransferase (ALT/SGPT) 145 U/L (10-53) Total Bilirubin 0.5 MG/DL (0.2-1.0) Sodium Level 143 MEQ/L (136-145) Potassium Level 3.4 MEQ/L (3.5-5.1) Chloride Level 106 MEQ/L (98-107) Carbon Dioxide Level 24.4 MEQ/L (21.0-32.0) Anion Gap 13 MEQ/L (5-15) Estimat Glomerular Filtration Rate 53 ML/MIN (>89) Phosphorus Level 5.3 MG/DL (2.5-4.9) Magnesium Level 1.9 MG/DL (1.5-2.5) Amylase Level 18 U/L (25-115) Lipase 63 U/L (73-393) Fibrinogen 593 mg/dL (227-377) Lactic Acid Level 2.2 mmol/L (0.4-2.0) Prolactin 7.9 ng/mL (4.8 - 23.3) Phenytoin (Dilantin) Level 5.2 MCG/ML (10.0-20.0) Result Diagram: 05/07/17 0330 05/07/17 0330 Procedures INTUBATION 05/05/17 Cold cooling 05/05 - 05/06/17 . 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 Spiritual: The patient's sister reports that the patient has "eclectic believes , "and they change at times. The patient's sister Karla is a guest relations receptionist and is ministering to the patient on a regular basis. Legal: The patient lacks capacity for decision-making and she will not regain that capacity. Her sister Karla and brother Saturnino are her proxy decision makers. Ethical issues impacting care: None . Important Contacts Sister: Karla Marin [phone] Brother: Kaiser Posada . Prognosis The prognosis is very poor, she appears to have had a severe anoxic injury. She is appropriate for hospice services when the goals become comfort oriented. . Code Status: Alternative Code (intubation only) Plan * DO NOT RESUSCITATE * DECISION-MAKING: The patient lacks capacity for decision-making and she will not regain that capacity. Her sister Karla and brother Kaiser are her proxy decision makers. * GOALS: The patient's sister Karla Marin, brother Kaiser Posada, and significant other "Busby" Pless all requests a transition to comfort care, and specifically requested withdrawal of life support to allow natural today. There focuses solely on comfort now. * The process of withdrawal explained in detail to the family and S.O. * SYMPTOMS: No obvious pain or dyspnea at this time. Comfort med doses written in anticipation of the withdrawal of life support. * Palliative Care will continue to follow the patient during this hospitalization. . Time Spent Total Floor Time (mins): 42 Face to Face Time (mins): 13 >50% Counseling/Coord of Care: Yes (d/w Dr. Espinal and with RN) Attestation To help prompt me to consider important information that might be impacting today's encounter and assessment, information from prior notes written by myself or my colleagues may have been "brought forward" into today's note. My signature on this note, however, is an attestation that I personally performed the exam, history, and/or decision-making noted today, and, unless otherwise indicated, the interactions with patient, family, and staff as well as the review of records all occurred today. I also attest that the listed assessment and stated plan reflect my best clinical judgment today based on the combination of historical information, prior notes, and today's exam/ interactions. When time spent is documented, it refers only to time spent today by the signer, or if indicated, combined time spent today by collaborating physician/nurse practitioner. Karolyn Clarke MD May 08, 2017 15:55
[2017-05-08] MEDS ORDERED: FUROSEMIDE 20 MG/2 ML VIAL IV PUSH PRN (16:00)
[2017-05-08] MEDS ORDERED: ACETAMINOPHEN 650 MG SUPP RECTAL PRN (16:00)
[2017-05-08] MEDS ORDERED: LORazepam 2 MG/ML VIAL IV PUSH SCH (16:00)
[2017-05-08] MEDS ORDERED: MORPHINE SULFATE 4 MG/ML INJ IV PUSH SCH (16:00)
[2017-05-08] MEDS ORDERED: BISACODYL 10 MG SUPP RECTAL PRN (16:00)
[2017-05-08] MEDS ORDERED: MORPHINE SULFATE 4 MG/ML INJ IV PUSH PRN (16:00)
[2017-05-08] MEDS ORDERED: HYOSCYAMINE 0.5 MG/ML AMP IV PUSH PRN (16:00)
[2017-05-08] MEDS ORDERED: LORazepam 2 MG/ML VIAL IV PUSH PRN ×2 (16:00)
[2017-05-08] MEDS ORDERED: MORPHINE SULFATE 8 MG/ML INJ IV PUSH PRN (16:00)
--- NOTE | 2017-05-08 17:16 | ECHRPT ---
Indication: SHORTNESS OF BREATH CONCLUSIONS Severely dilated left ventricle. Wall thickness is normal. There is global left ventricular dysfunction. There are findings consistent with dilated cardiomyopathy. The left atrial size is moderately dilated. Moderate mitral valve regurgitation. Aortic valve sclerosis is present. BP: 126 / 83 HR: Rhythm: Sinus MEASUREMENTS (Male / Female) Normal Values Technical Quality:Fair 2D ECHO LV Diastolic Diameter PLAX 8.3 cm 4.2 - 5.9 / 3.9 - 5.3 cm LV Systolic Diameter PLAX 7.8 cm IVS Diastolic Thickness 0.7 cm 0.6 - 1.0 / 0.6 - 0.9 cm LVPW Diastolic Thickness 0.7 cm 0.6 - 1.0 / 0.6 - 0.9 cm LV Relative Wall Thickness 0.2 LVOT Diameter 2.3 cm Aortic Root Diameter 2.9 cm LA Systolic Diameter LX 4.0 cm 3.0 - 4.0 / 2.7 - 3.8 cm DOPPLER AV Peak Velocity 146.0 cm/s AV Peak Gradient 8.5 mmHg AV Mean Gradient 4.0 mmHg AV Velocity Time Integral 23.7 cm LVOT Peak Velocity 38.3 cm/s LVOT Peak Gradient 0.6 mmHg LVOT Velocity Time Integral 6.3 cm AV Area Cont Eq vti 1.1 cm AV Area Cont Eq pk 1.1 cm Mitral E Point Velocity 75.0 cm/s Mitral A Point Velocity 89.3 cm/s Mitral E to A Ratio 0.8 LV E' Lateral Velocity 3.5 cm/s Mitral E to LV E' Lateral Ratio 21.4 LV E' Septal Velocity 3.9 cm/s Mitral E to LV E' Septal Ratio 19.2 PV Peak Velocity 85.0 cm/s PV Peak Gradient 2.9 mmHg FINDINGS LEFT VENTRICLE Severely dilated left ventricle. Wall thickness is normal. There is global left ventricular dysfunction. There are findings consistent with dilated cardiomyopathy. RIGHT VENTRICLE Normal right ventricular size and systolic function. LEFT ATRIUM The left atrial size is moderately dilated. RIGHT ATRIUM The right atrial size is normal. ATRIAL SEPTUM Normal atrial septal thickness without atrial level shunting by limited color doppler interrogation. AORTA The aortic root and proximal ascending aorta are normal in size on limited imaging. MITRAL VALVE Moderate mitral valve regurgitation. AORTIC VALVE Aortic valve sclerosis is present. TRICUSPID VALVE Structurally normal tricuspid valve. No tricuspid valve stenosis or regurgitation. PULMONARY VALVE The pulmonary valve is not well visualized. VESSELS The inferior vena cava is normal in size. PERICARDIUM No pericardial effusion. Gatito Newby MD (Electronically Signed) Final Date:08 May 2017 17:16
--- NOTE | 2017-05-08 21:23 | MG ---
cc: YOVANNY GARCIA Lab No: [id number] Date: 05/08/17 Age: 62 Sex: F Race: HISTORY Pacemaker, snoring, status post code. MEDICATIONS Keppra and Depakote. DESCRIPTION The recording looks very similar to yesterday's recording. There is diffuse spikes noted which is synchronous and symmetric, pretty much throughout the entire brain occurring at bursts lasting 400 milliseconds with some suppressions lasting up to about 3 milliseconds. Other bursts might last a second. There is no hemisphere asymmetry. IMPRESSION Burst suppression pattern, unchanged really from prior day's EEG. Clinical correlation is needed. Yovanny Garcia MD DJM/BONNIE /8:59 PM /9:20 PM
== END 2017-05-08 22:59 | disposition expired | DRG 208 ==
LOC: NEPE 06:33 → NEDA 08:56 → HIMW 10:10
PROVIDERS: ADMIT Emergency Medicine; ATTEND Emergency Medicine
PROC: 5A1945Z Respiratory Ventilation, 24-96 Consecutive Hours (ICD-10-PCS; principal; 2017-05-05)
PROC: 02HV33Z Insertion of Infusion Device into Superior Vena Cava, Percutaneous Approach (ICD-10-PCS; 2017-05-05)
PROC: 6A4Z0ZZ Hypothermia, Single (ICD-10-PCS; 2017-05-05)
PROC: 0T9B70Z Drainage of Bladder with Drainage Device, Via Natural or Artificial Opening (ICD-10-PCS; 2017-05-05)
DX: J96.01 Acute respiratory failure with hypoxia (principal); I46.9 Cardiac arrest, cause unspecified; G93.1 Anoxic brain damage, not elsewhere classified; J18.9 Pneumonia, unspecified organism; Z51.5 Encounter for palliative care; I13.0 Hypertensive heart and chronic kidney disease with heart failure and stage 1 through stage 4 chronic kidney disease, or unspecified chronic kidney disease; J44.0 Chronic obstructive pulmonary disease with (acute) lower respiratory infection; E87.2 Acidosis; I42.8 Other cardiomyopathies; I50.9 Heart failure, unspecified; N18.3 Chronic kidney disease, stage 3 (moderate); J96.02 Acute respiratory failure with hypercapnia; E11.22 Type 2 diabetes mellitus with diabetic chronic kidney disease; E11.42 Type 2 diabetes mellitus with diabetic polyneuropathy; E78.5 Hyperlipidemia, unspecified; I44.7 Left bundle-branch block, unspecified; I25.10 Atherosclerotic heart disease of native coronary artery without angina pectoris; G47.00 Insomnia, unspecified; E83.41 Hypermagnesemia; M19.90 Unspecified osteoarthritis, unspecified site; E66.9 Obesity, unspecified; F12.10 Cannabis abuse, uncomplicated; F32.9 Major depressive disorder, single episode, unspecified; F41.9 Anxiety disorder, unspecified; F17.210 Nicotine dependence, cigarettes, uncomplicated; Z66 Do not resuscitate; Z88.0 Allergy status to penicillin; Z88.5 Allergy status to narcotic agent; Z95.810 Presence of automatic (implantable) cardiac defibrillator
CPT/HCPCS: 36556; 36600; 43753; 51702; 70450; 71010; 71275; 76705; 80048; 80053; 80074; 80164; 80185; 80307; 81001; 82140; 82150; 82550; 82552; 82805; 82948; 83605; 83690; 83735; 83880; 84100; 84146; 84439; 84443; 84481; 84484; 85007; 85025; 85027; 85384; 85610; 85730; 86850; 86900; 86901; 87040; 87070; 87205; 87449; 87641; 87804; 93005; 93306; 94002; 94003; 94640; 95819; 96361; 96365; 96375; J0456; J0692; J1644; J1815; J1940; J1953; J1980; J2060; J2175; J2250; J2270; J3480; J7030; J7050; Q2009; Q9967